=== PATIENT | male | born 1955 | race Caucasian/White ===

== ENCOUNTER 2025-05-11 13:12 | Inpatient (IN) | payer MEDICARE, SELFPAY ==
--- OUTSIDE RECORDS SUMMARY | 2016-05-15 19:00 | XMS_ITS | Continuity of Care Document ---
Author Organization [facility] Address [address], [place] [address] Phone Care Team Providers Care Cluster Bore Operator Name Role Phone Davey Mendoza MD Unavailable Unavailable Procedures Procedure Date No Charge Subsequent Hospital Care Subsequent Hospital Care Subsequent Hospital Care Subsequent Hospital Care Subsequent Hospital Care Subsequent Hospital Care Critical Care, First Hour Advance Directives Directive Yes / No Effective Date File Name No Information Encounters Encounter Description Practice Location Reason(s) For Visit Diagnoses Date Provider Providers Copied on Encounter [facility], [address] [place] [address], [id number], tel:[phone] [facility] No Information 6 Reji Mariscal. [address] [place] [address], [id number], [place]. tel:[phone] Subsequent Hospital Care [facility], [address] [place] [address], [address], tel:[phone] [facility] Acute kidney failure, unspecifiedAcidos isHyperkalemiaRha bdomyolysis 6 Grecia Hussein. [address] [place] [address], [facility] [address], [place], [id number], [place]. tel:[phone] Referring Provider: Miki Fowler, [facility] [place], [address]. tel:[phone] Subsequent Hospital Care [facility], [address] [place] [address], [address], [place] tel:[phone] [facility] Acute kidney failure, unspecifiedAcidos isHyperkalemiaRha bdomyolysis Apr-3 0- 6 Reji Mariscal. [address] [place] [address], [facility] [address], [place], [id number], [place]. tel:[phone] Referring Provider: Miki Fowler, [address] [place] [address], [address]. tel:[phone] Subsequent Hospital Care [facility], [address], [address], [place] tel:[phone] [facility] Acute kidney failure, unspecifiedAnemia in chronic kidney diseaseRhabdomyol ysisAcidosis Apr- 0- 6 Cristian Dodge. [facility] [address], [place], [address], [place]. tel:[phone] Referring Provider: Miki Fowler, [address] [place] [address], [address]. tel:[phone] Subsequent Hospital Care [facility], [address] [place] [address], [address], [place] tel:[phone] [facility] Acute kidney failure, unspecifiedAcidos isHyperkalemiaRha bdomyolysis Apr-3 0 6 Reji Mariscal. [address] [place] [address], [facility] [address], [id number], [place]. tel:[phone] Referring Provider: Miki Fowler, [address] [place] [address], [address]. tel:[phone] Subsequent Hospital Care [facility], [address] [place] [address], [address], [place] tel:[phone] [facility] Acute kidney failure, unspecifiedAcidos isHyperkalemiaRha bdomyolysis Apr-3 0 6 Reji Mariscal. [address] [place] [address], [facility] [address], [place], [id number], [place]. tel:[phone] Referring Provider: Miki Fowler, [address] [place] [address], [address]. tel:[phone] Subsequent Hospital Care [facility], [address] [place] [address], [address], [place] tel:[phone] [facility] Acute kidney failure, unspecifiedAcidos isHyperkalemiaRha bdomyolysis 0-201 6 Reji Mariscal. [address] [place] [address], [facility] [address], [place], [id number], [place]. tel:[phone] Referring Provider: Miki Fowler, [address] [place] [address], [address]. tel:[phone] Critical Care, First Hour [facility], [address], [address], [place] tel:[phone] [facility] Acute kidney failure, unspecifiedAcidos isHyperkalemiaRha bdomyolysis 0-201 6 Reji Mariscal. [address] [place] [address], [address], [id number], [place]. tel:[phone] Referring Provider: Miki Fowler, [address] [place] [address], [address]. tel:[phone] Family History Family Member Type Diagnosis Age At Onset No Information Payers Payer name Insurance type Covered republican ID Authoriza tion(s) No Information Social History Type Description Quantity Date Captured Comments Sex Male Smoking Status No Information Chief Complaint And Reason For Visit No Information History Of Present Illness Encounter Date Complaint History Of Prese nt Illness No Information Instructions Date Instruction Additional Infor mation No Information Assessments Type Assessment Date No Information
--- OUTSIDE RECORDS SUMMARY | 2018-10-08 19:00 | XMS_ITS | Continuity of Care Document ---
Author Organization [facility] Address [address] [place] [address] Care Team Providers Care Sewer Name Role Phone Ilir Maya MD Unavailable Unavailable Procedures Procedure Date Calcium Scoring, Pro Echo Trans Professional Advance Directives Directive Yes / No Effective Date File Name No Information Encounters Encounter Description Practice Location Reason(s) For Visit Diagnoses Date Provider Providers Copied on Encounter [facility], [address] [place] [address], [facility], [facility] No Information 9 Francesco Hazel. [address], [address], . tel:[phone] Referring Provider: [address], [place], [address]. tel:[phone] [facility], [address] [place] [address], [facility], [facility] No Information 8 John Fleming. [address] [facility], [address], [address], . tel:[phone] Referring Provider: [address], [place], [address]. tel:[phone] Family History Family Member Type Diagnosis Age At Onset No Information Payers Payer name Insurance type Covered republican ID Authoriza tion(s) No Information Social History Type Description Quantity Date Captured Comments Sex Male Smoking Status No Information Chief Complaint And Reason For Visit No Information Reason For Referral Reason For Referral No Information History Of Present Illness Encounter Date Complaint History Of Prese nt Illness No Information Functional Status Date Functional Assessmen t No Information Instructions Date Instruction Additional Infor mation No Information Assessments Type Assessment Date No Information Patient Care Teams Name Effective Dates (start - stop) Status Members No Information
[2025-05-11] VITALS (12 sets, daily range): BP systolic 97–127; BP diastolic 50–62; PULSE 71–107; RESP 16–20; TEMP 36.7–37.1; O2SAT 92–100; BMI 28.0
--- NOTE | ~2025-05-11 | XR_ITS ---
EXAMINATION: XR chest 2V, 05/11/2025 14:20 CDT HISTORY: CHF/DYSPNEA COMPARISON: No comparisons available. Technique: 2 views obtained. Findings: Scattered bilateral small infiltrates. COPD changes otherwise the remaining lungs are clear. No pneumothorax. Heart is normal size. Mediastinal and hilar contours are within normal limits. Bony thorax no acute abnormality. Impression: Bilateral pneumonia Reviewed, dictated and finalized at location P. Impression: Bilateral pneumonia
--- NOTE | ~2025-05-11 | XR_ITS ---
EXAMINATION: XR chest 2V, 05/14/2025 13:03 CDT HISTORY: pneumonia COMPARISON: No comparisons available. Technique: 2 views obtained. Findings: COPD changes Scattered bilateral small infiltrates No pneumothorax. Heart is normal size. Mediastinal and hilar contours are within normal limits. Bony thorax no acute abnormality. Impression: Bilateral pneumonia superimposed on chronic lung disease. The findings are new compared to the previous exam Reviewed, dictated and finalized at location P. Impression: Bilateral pneumonia superimposed on chronic lung disease. The findings are new compared to the previous exam
--- NOTE | 2025-05-11 13:13 | ECG_ITS ---
Test Date: 2025-05-11 13:23:33 Measurements Intervals [place] Rate: 99 P: 51 NH: 232 QRS: -22 QRSD: 97 T: 47 QT: 337 QTc: 432 Interpretive Statements SINUS RHYTHM WITH FIRST DEGREE AV BLOCK INCOMPLETE RIGHT BUNDLE BRANCH BLOCK DELAYED PRECORDIAL R/S TRANSITION LOW QRS VOLTAGE IN PRECORDIAL LEADS INFERIOR INFARCT, AGE INDETERMINATE BASELINE ARTIFACT- I, III, AVR, AVL ABNORMAL ECG No previous ECG available for comparison Electronically Signed On 05-11-2025 14:01:17 CDT by Simeon Palma D.O.
[2025-05-11 13:37] LABS: Hematocrit 30.8 % (42.0-52.0); Hemoglobin 9.8 g/dL (14.0-18.0); Immature Granulocyte Percent A 0.5 % (0-0.5); Lymphocytes Absolute Auto 0.71 K/mm3 (0.9-3.2); Mean Corpuscular HGB Conc 31.8 g/dl (32-36); Mean Corpuscular Hemoglobin 35.4 pg (26-34); Mean Corpuscular Volume 111.2 fl (80-100); Nucleated Red Blood Cells Absolute Auto 0.000 K/mm3 (0.0-0.012); Nucleated Red Blood Cells Perc 0.0 % (0.0-0.2); Platelet Count Result 162 k/mm3 (150-375); Red Blood Count 2.77 M/mm3 (4.6-6.20); White Blood Count 8.1 K/mm3 (4.5-10.0)
[2025-05-11 13:48] LABS: INR 1.2; Prothrombin Time 15.2 Seconds (11.1-14.7)
[2025-05-11 13:49] LABS: Partial Thromboplastin Time 35.7 Seconds (22.3-36.8)
[2025-05-11 13:50] LABS: Alanine Aminotransferase 22 U/L (6-50); Albumin Level 4.4 g/dL (3.5-5.1); Alkaline Phosphatase 160 U/L (38-126); Anion Gap 13 mmol/L (4-12); Aspartate Amino Transferase 35 U/L (17-59); Bilirubin,Total 1.2 mg/dL (0.2-1.3); Blood Urea Nitrogen 48 mg/dL (9-20); Calcium 9.4 mg/dL (8.4-10.2); Carbon Dioxide 23 mmol/L (22-30); Chloride 102 mmol/L (98-107); Estimated CRCL calculation 44 ml/min; Estimated Glomerular Filt Rate 45; Glucose 155 mg/dL (65-110); Potassium 3.8 mmol/L (3.4-5.0); Sodium 138 mmol/L (137-145); Total Protein 8.7 g/dL (6.3-8.2)
--- OUTSIDE RECORDS SUMMARY | 2025-05-11 13:59 | XMS_ITS | Encounter Summary ---
Author Organization [facility] Address [address] [place] [address] Phone Care Team Providers Care Adult Educator Name Role Phone Unavailable Primary Care Provider Unavailabl e Encounter Details Date Type Department Care Team (Late st Contact Info) Description 10/25/[address] [facility] [address] [place] [address] ProviderShelly MD [address] [place] [address] Social History Tobacco Use Types Packs/Day Years Used Date Smoking Tobacco: Never Assessed Sex and Gender Information Value Date Recorded Sex Assigned at Not on file Legal Sex Male 7:35 PM MDT Gender Identity Not on file Sexual Orientation Not on file documented as of this encounter Plan of Treatment Not on file documented as of this encounter Visit Diagnoses Not on filedocumented in this encounter
--- OUTSIDE RECORDS SUMMARY | 2025-05-11 13:59 | XMS_ITS | Clinical Summary ---
Author Organization [facility] Address [address] [place] [address] Phone Care Team Providers Care Operator Automated Process Name Role Phone Unavailable Primary Care Provider Unavailabl e Social History Tobacco Use Types Packs/Day Years Used Date Smoking Tobacco: Never Assessed Sex and Gender Information Value Date Recorded Sex Assigned at Not on file Legal Sex Male 7:35 PM MDT Gender Identity Not on file Sexual Orientation Not on file Plan of Treatment Not on file
--- OUTSIDE RECORDS SUMMARY | 2025-05-11 13:59 | XMS_ITS | Encounter Summary ---
Author Organization [facility] Address [address] [place] [address] Phone Care Team Providers Care Service Delivery Management Consultant Name Role Phone Unavailable Primary Care Provider Unavailabl e Encounter Details Date Type Department Care Team (Late st Contact Info) Description 08/13/2021 Hospital/ED/SNF/HH Visit [facility] [address] [place] [address] Provider, MD Shelly [address] [place] [address] Social History Tobacco Use Types Packs/Day [...]
[2025-05-11 14:00] LABS: NT Pro B Type Natriuretic Pept 778 pg/mL (19.9-100); Troponin I 0.012 ng/mL (0.000-0.034)
--- OUTSIDE RECORDS SUMMARY | 2025-05-11 14:00 | XMS_ITS | Encounter Summary ---
Author Organization [facility] Address [address] [place] [address] Care Team Providers Care Casing Splitter Name Role Phone Mamie Bartholomew NP Primary Care Provider Bob Pollard MD Unavailable [phone] Reason for Visit * Reason Onset Date Comments Medication Request 05/09/2025 Encounter Details Date Type Department Care Team (Late st Contact Info) Description 05/09/2025 Telephone [facility] Primary Care at [address] [address] Mamie Bartholomew NP [address] [place] [address] Medication Request Social History Tobacco Use Types Packs/Day Years Used Date Smoking Tobacco: Former Cigarettes 2 38 0 09/15/1974 - 09/15/2012 Passive Smoke Exposure: Past Smokeless Tobacco: Never [facility] Utilities Answer Date Recorded In the past 12 months has [employer], gas, oil, or water company threatened to shut off services in your home? No 07/21/2023 Social Connection and Isolation Panel Answer Date Recorded In a typical week, how many times do you talk on the phone with family, friends, or neighbors? More than three times a week 07/21/2023 How often do you get togethe r with friends or relatives? Twice a week 07/21/2023 How often do you attend [facility] or yarsani services? Never 07/21/2023 Do you belong to any clubs o r organizations such as latter day groups, unions, fraternal or athletic groups, or school groups? No 07/21/2023 How often do you attend meet ings of the clubs or organizations you belong to? Never 07/21/2023 Are you , , di vorced, , never , or living with a partner? 07/21/2023 AUDIT-C Answer Date Recorded Q1: How often do you have a drink containing alcohol? 4 or more times a week 07/20/2023 Q2: How many drinks containi ng alcohol do you have on a typical day when you are drinking? 5 or 6 Q3: How often do you have si x or more drinks on one occasion? Weekly 07/20/2023 Overall Financial Resource Strain (CARDIA) Answe r Date Recorded How hard is it for you to pa y for the very basics like food, housing, medical care, and heating? Not hard at all 07/21/2023 PHQ-2 Answer Date Recorded PHQ-2 Total Score (If total score is 3 or more points, staff should administer the PHQ-9) 0 05/02/2025 Hunger Vital Sign Answer Date Recorded Within the past 12 months, y ou worried that your food would run out before you got the money to buy more. Never true 07/21/19 24 Within the past 12 months, t he food you bought just didn't last and you didn't have money to get more. Never true 07/21/2023 PRAPARE - Transportation Answer Date Re corded In the past 12 months, has l ack of transportation kept you from medical appointments or from getting medications? No 11/2023 In the past 12 months, has l ack of transportation kept you from meetings, work, or from getting things needed for daily living? No 07/21/2023 Housing Stability Vital Sign Answer David e Recorded In the last 12 months, was t here a time when you were not able to pay the mortgage or rent on time? No 07/21/2023 In the last 12 months, how many places have you lived? 1 07/21/2023 In the last 12 months, was t here a time when you did not have a steady place to sleep or slept in a alf (including now)? No 07/21/2023 Personal Safety Answer Date Recorded Have you ever been in or are you currently in a harmful physical or emotional relationship or is someone making you feel afraid or unsafe? 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 * Telephone Encounter - Brigette Baldwin - 05/09/2025 10:46 AM CDT Medication Question/Clarification Medication Name(s)/Dose: furosemide (LASIX) 40 mg tablet What is the question or clarification needed? The patient is stating his cardiology increased the dosage to taking 4 pills a day, take 80 mg twice a day If needed, Pharmacy(s) medication(s) should be sent to: [id number] Additional Comments: Also asking for a 90 day supply, 360 tablets Does message need to be routed? Yes-Action Needed documented in this encounter Plan of Treatment Not on file documented as of this encounter Visit Diagnoses Not on filedocumented in this encounter Care Teams Casing Splitter Relationship Specialty Start Date End Date Mamie Bartholomew NP PCP - General Family Medicine 09/19/22 Bob Pollard MD Consulting Physician Cardiovascular Disease 07/22/23 documented as of this encounter
--- OUTSIDE RECORDS SUMMARY | 2025-05-11 14:00 | XMS_ITS | Encounter Summary ---
Author Organization [facility] Address [address] [place] [address] Care Team Providers Care Automotive Brake Technician Name Role Phone Mamie Bartholomew NP Primary Care Provider Bob Pollard MD Unavailable [phone] Reason for Visit * Reason Onset Date Comments Medical Question/Miscellaneous 05/05/2025 Encounter Details Date Type Department Care Team (Late st Contact Info) Description 05/05/2025 Telephone [facility] Primary Care at [address] [address] Mamie Bartholomew NP [address] [place] [address] [address] [place] [address] Medical Question/Miscellaneous Social History Tobacco Use Types Packs/Day Years Used Date Smoking Tobacco: Former Cigarettes 2 38 0 09/15/1974 - 09/15/2012 Passive Smoke Exposure: Past Smokeless Tobacco: Never [facility] Utilities Answer Date Recorded In the past 12 months has [employer], gas, oil, or water company threatened to [...] week 07/21/2023 How often do you attend [facility] or evangelical services? Never 07/21/2023 Do you belong to any clubs o r organizations such as roman catholic groups, unions, fraternal or athletic groups, or [...] place to sleep or slept in a jail (including now)? No 07/21/2023 Personal Safety Answer Date Recorded Have you ever been in or are you currently in a harmful physical or emotional relationship or is someone making you feel afraid or unsafe? 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 Patient declined an ER follow up appointment since he has Medicare exam on Monday. Wouldn't talk to FAMILY MEDICINE RESIDENT, just wanted a call from Mamie as soon as possible. Does message need to be routed? Yes-Action Needed documented in this encounter Plan of Treatment Not on file documented as of this encounter Visit Diagnoses Not on filedocumented in this encounter Care Teams Automotive Brake Technician Relationship Specialty Start Date End Date Mamie Bartholomew NP PCP - General Family Medicine 09/19/22 Bob Pollard MD Consulting Physician Cardiovascular Disease 07/22/23 documented as of this encounter
--- OUTSIDE RECORDS SUMMARY | 2025-05-11 14:00 | XMS_ITS | Clinical Summary ---
Author Organization [address] Address [address] [place] [id number] Care Team Providers Care Wood Mechanist Name Role Phone Juliana Hannah NP Primary Care Provider [phone] Bob Pollard MD Unavailable [phone] Allergies Active Allergy Reactions Criticality Noted Date Comments Phenobarbital Other (See comments) Medium 07/16/2012 Mother said had reaction as small child. Hyperactivity per mother. Medications iron-vit C-vit N37-yufcg acid (Iron 100 Plus) [phone] [id number]-yz-[id number]-mg tablet Take one tablet daily 90 tablet 1 023 Active Additional Information Patient not taking.Reported on 05/07/2025 saw palmetto 160 mg capsule Take 160 mg by mouth 2 (two) times a day 180 capsule 1 023 Active Additional Information Patient not taking.Informant: Self, Reported on 02/05/2024 melatonin 10 mg tablet Take 1 tablet (10 mg total) by mouth nightly Takes one tablet at hour of sleep, another when he wakes up in the middle of the night. Active ferrous sulfate 325 mg (65 mg of elemental iron) tabletIndications :Iron Deficiency Anemia Take 1 tablet (325 mg total) by mouth daily with breakfast 90 tablet 1 024 Active levETIRAcetam (KEPPRA) 500 mg tabletIndications :Seizure disorder (HCC) Take 2 tablets (1,000 mg total) by mouth daily 180 tablet 1 Active Additional Information Patient not taking.Reported on 02/05/2024 sodium chloride 1 gram tablet Take 3 tablets (3 g total) by mouth daily 90 tablet 11 Active clopidogreL (PLAVIX) 75 mg tabletIndications :History of CVA (cerebrovascular accident) Take 1 tablet (75 mg total) by mouth daily 90 tablet 1 Active atorvastatin (LIPITOR) 80 mg tabletIndications :Hyperlipidemia, unspecified hyperlipidemia type Take 1 tablet (80 mg total) by mouth daily 90 tablet 3 Active gemfibroziL (LOPID) 600 mg tabletIndications :Hyperlipidemia, unspecified hyperlipidemia type Take 1 tablet (600 mg total) by mouth daily 90 tablet 1 025 Active losartan (COZAAR) 100 mg tabletIndications :Benign hypertension Take 1 tablet (100 mg total) by mouth daily 90 tablet 1 025 Active aspirin 81 mg enteric coated tablet Take 1 tablet (81 mg total) by mouth daily 90 tablet 1 025 Active tamsulosin (FLOMAX) 0.4 mg extended release capsuleIndication s:Benign prostatic hyperplasia with weak urinary stream Take 1 capsule (0.4 mg total) by mouth daily 90 capsule 1 025 Active metoprolol tartrate (LOPRESSOR) 25 mg immediate release tablet Take 1 tablet (25 mg total) by mouth 2 (two) times a day 180 tablet 3 025 2025 Active empagliflozin (JARDIANCE) 10 mg tablet Take 1 tablet (10 mg total) by mouth daily 90 tablet 1 025 Active furosemide (LASIX) 40 mg tabletIndications :Shortness of breath Take 2 tablets (80 mg total) by mouth 2 (two) times a day 360 tablet 1 025 Active aspirin 81 mg enteric coated tablet Take 1 tablet (81 mg total) by mouth daily 90 tablet 1 024 2024 Discontinued(R eorder) atorvastatin (LIPITOR) 80 mg tabletIndications :Hyperlipidemia, unspecified hyperlipidemia type Take 1 tablet (80 mg total) by mouth daily 90 tablet 3 025 2024 Discontinued(R eorder) metoprolol tartrate (LOPRESSOR) 25 mg immediate release tablet Take 1 tablet (25 mg total) by mouth 2 (two) times a day 180 tablet 3 2024 Discontinued(R eorder) clopidogreL (PLAVIX) 75 mg tabletIndications :History of CVA (cerebrovascular accident) Take 1 tablet (75 mg total) by mouth daily 90 tablet 1 025 2024 Discontinued(R eorder) furosemide (LASIX) 40 mg tablet Take 1 tablet (40 mg total) by mouth 2 (two) times a day 180 tablet 1 2024 Discontinued(A lternate therapy) gemfibroziL (LOPID) 600 mg tabletIndications :Hyperlipidemia, unspecified hyperlipidemia type Take 1 tablet (600 mg total) by mouth daily 90 tablet 1 2024 Discontinued(R eorder) losartan (COZAAR) 100 mg tabletIndications :Benign hypertension Take 1 tablet (100 mg total) by mouth daily 90 tablet 1 2024 Discontinued(R eorder) tamsulosin (FLOMAX) 0.4 mg extended release capsuleIndication s:Benign prostatic hyperplasia with weak urinary stream Take 1 capsule (0.4 mg total) by mouth daily 90 capsule 1 2024 Discontinued(R eorder) furosemide (LASIX) 40 mg tabletIndications :Shortness of breath Take 2 tablets (80 mg total) by mouth 2 (two) times a day 120 tablet 11 2024 Discontinued(R eorder) empagliflozin (JARDIANCE) 10 mg tablet Take 1 tablet (10 mg total) by mouth daily 90 tablet 1 2024 Discontinued dapagliflozin propanediol (FARXIGA) 10 mg tablet Take 1 tablet (10 mg total) by mouth daily 90 tablet 1 2024 Discontinued furosemide (LASIX) 40 mg tabletIndications :Shortness of breath Take 2 tablets (80 mg total) by mouth 2 (two) times a day 120 tablet 11 025 2024 Discontinued(R eorder) Active Problems Problem Noted Date Diagnosed Date Medicare annual wellness visit, subsequent 02/04 Assessment & Plan (02/05/2024 12:29 PM CDT): A yearly Medicare Annual Wellness Visit has been performed today. Rudolph Boyd is up to date on screening tests. He is in need of None- no screening indicated at this time- these have been ordered. He is not up to date on needed preventative vaccinations; He is in need of Zoster. These have been ordered/arranged unless otherwise indicated. Pulmonary fibrosis 07/21/2023 Heart failure, unspecified H F chronicity, unspecified heart failure type 07/20/2023 Assessment & Plan (05/08/2025 1:16 PM CDT): Patient scheduled for ECHO 05/09 at [facility]. Our location in [place] is more convenient for him. Will touch base with his Software Engineer Kernel to switch order location. Continuing Furosemide as directed by specialist. Updated labs today Also discussed Farxiga for CHF, CKD, and T2DM. Pt agreeable as long as insurance allows, rx sent. Addendum 05/08/25: Pt continues to experience significant SOB and difficulty sleeping d/t this. Will have in home oxygen assessment performed to see if supplemental oxygen indicated for pt. O2 sat in office today is 92%. D/t pt mobility issues, unable to achieve 6 minute walk test in office visit yesterday. Assessment & Plan (02/05/2024 12:29 PM CDT): Stable overall, continuing current regimen and he is set to see Cardiology 02/22/24. Assessment & Plan (07/28/2023 10:34 AM JAVA SOFTWARE ARCHITECT): Continuing the Lasix 40 mg BID. Education provided on s/s to be mindful of and fluid restriction/intake. Discussed leg elevation 3x/daily above heart for at least 15-20 min each. Rechecking electrolytes when we recheck blood count in 4 weeks. CVA (cerebral vascular accident) 09/19/2022 Assessment & Plan (09/21/2022 11:53 AM JAVA SOFTWARE ARCHITECT): Per patient, he had some form of neurologic episode x 10-15 years ago, and they are unsure whether it was a seizure or a stroke. He was started on Keppra and continues it just to be safe. His previous PCP felt it was likely more of a stroke, given his hx prior to the weight loss. Continues statin and Plavix DM type 2 (diabetes mellitus, type 2) 09/19/2022 Assessment & Plan (05/07/2025 1:15 PM CDT): Updated labs ordered. Trial Farxiga for co-morbidities. Assessment & Plan (08/07/2024 1:35 PM JAVA SOFTWARE ARCHITECT): Stable overall, updated labs ordered. Assessment & Plan (02/05/2024 12:30 PM CDT): Updated labs ordered. Assessment & Plan (07/28/2023 10:35 AM JAVA SOFTWARE ARCHITECT): A1c 5.0% in hospital, no medications at this time. Hyperlipidemia 09/19/2022 Assessment & Plan (08/07/2024 1:35 PM JAVA SOFTWARE ARCHITECT): Continues Gemfibrozil and Lipitor Denies side effects Refills provided, labs ordered Assessment & Plan (09/21/2022 11:51 AM JAVA SOFTWARE ARCHITECT): Continues Gemfibrozil and Lipitor Denies side effects Refills provided, labs ordered Benign hypertension 09/19/2022 Assessment & Plan (08/07/2024 1:35 PM JAVA SOFTWARE ARCHITECT): BP stable in office Continues Losartan, refill provided. Labs ordered Assessment & Plan (09/21/2022 11:54 AM JAVA SOFTWARE ARCHITECT): BP stable in office Continues Losartan, refill provided. Labs ordered Hyponatremia 09/19/2022 Assessment & Plan (09/21/2022 11:50 AM JAVA SOFTWARE ARCHITECT): Continues Sodium Chloride tablets. Refills provided. Labs ordered. BPH (benign prostatic hyperplasia) 09/19/2022 Assessment & Plan (08/07/2024 1:35 PM JAVA SOFTWARE ARCHITECT): Sx stable Continues Tamsulosin, refill provided. Assessment & Plan (09/21/2022 11:53 AM JAVA SOFTWARE ARCHITECT): Sx stable Continues Tamsulosin, refill provided Has a Urologist. Iron deficiency anemia 09/19/2022 Assessment & Plan (07/28/2023 10:35 AM JAVA SOFTWARE ARCHITECT): Sending in iron supplement, rechecking blood count in 4 weeks. Recurrent unilateral inguinal hernia 09/19/2022 Encounters Date Type Department Care Team Description 05/09/2025 3:00 PM CDT Ancillary Procedure [facility] Medical [facility] Cardiology at [address] [phone] Rapid heart beat; Heart failure, unspecified HF chronicity, unspecified heart failure type (HCC) 05/09/2025 Orders Only [facility] Medical [facility] Primary Care at [address] [phone] Juliana Hannah, SUPERVISORY EXAMINER Shortness of breath 05/09/2025 Telephone [facility] Primary Care at [address] [phone] Juliana Hannah, SUPERVISORY EXAMINER Medication Request 05/08/2025 Results Follow-Up [facility] Primary Care at [address] [phone] Juliana Hannah, SUPERVISORY EXAMINER Ferritin, Iron level, Lipid panel, Additional followed-up results: 4 05/08/2025 Telephone [facility] Primary Care at [address] [phone] Juliana Hannah, SUPERVISORY EXAMINER 05/08/2025 Telephone [facility] Cardiology at [address] [phone] Unknown, Notinfile 05/07/2025 1:40 PM CDT Lab [address] [id number] Other iron deficiency anemia; Type 2 diabetes mellitus with other specified complication, without long-term current use of insulin; B12 deficiency 05/07/2025 1:25 PM CDT Lab [address] [address] Shortness of breath 05/07/2025 12:30 PM CDT Office Visit [facility] Medical [facility] Primary Care at [address] [phone] Juliana Hannah NP Type 2 diabetes mellitus with other specified complication, without long-term current use of insulin (Primary Dx); Other iron deficiency anemia; B12 deficiency; Heart failure, unspecified HF chronicity, unspecified heart failure type (HCC); Need for vaccination 05/07/2025 Orders Only [facility] at [address] [phone] Cosme Spivey NP 05/05/2025 [facility] [address] [address] Nanda Amos MA 05/05/2025 Orders Only [facility] at [address] [phone] Cosme Spivey NP Shortness of breath (Primary Dx) 05/05/2025 Orders Only [facility] [id number] [address] Cosme Spivey NP 05/05/2025 Telephone [facility] at [address] [phone] Cosme Spivey NP 05/05/2025 Telephone [facility] Primary Care at [address] [phone] Juliana Hannah NP Medical Question/Miscellane ous 05/03/2025 5:05 PM CDT - 05/03/2025 6:30 PM CDT Emergency [facility] Emergency Department [address] [place] [address] Nicholas Eason MD Mild congestive heart failure (HCC) (Primary Dx) Discharge Disposition: Discharge to home or self care from Last 3 Months Immunizations Immunization Administration Dates Next Due Influenza, Quadrivalent, Hig h Dose, Preservative Free, Intrr 04/13/2023,03/29/2022 Influenza, Quadrivalent, Spl it, Preservative Free, Intramuscular 04/22/2017 Influenza, Trivalent, High D ose, Split, Preservative Free, Intramuscular 05/07/2025,04/02/2024 Influenza, Trivalent, IM (MDV) 04/24/2014,2011 Influenza, Unspecified 03/18/2024,2023(Deferred: Patient Refused),07/17/2023,07/17/2022, 023(Deferred: Patient Refused),04/16/2021,05/16/2016 Moderna Sars-cov-2 Bivalent Vaccine 50 Mcg/0.5 mL (12+ YRS)-Blue/Guzman 05/22/2023 Pfizer SARS-CoV-2 Monovalent Vaccination (12+ Yrs) PURPLE 04/16/2021 Pneumococcal Polysaccharide PPV23 12/21/2018,11/2015 RSV, Bivalent, Protein Subun it Rsvpref, Diluent (Abrysvo) 04/13/2023 Tdap 07/17/2019,05/24/2014 ZOSTER LIVE 05/24/2014 ZOSTER Recombinant 08/23/2020 Surgical History Surgery Date Site/Laterality Comments CAROTID STENT REPLACEMENT TOTAL KNEE Left CATARACT EXTRACTION KNEE ARTHROSCOPY W/ LATERAL RELEASE Medical History Medical History Date Comments CVA (cerebral vascular accident) (HCC) Diabetes mellitus Hypertension Hyperlipidemia Hyponatremia Diabetes mellitus 09/19/2022 Family History Medical History Relation Name Comments Heart attack Brother 1 No Known Problems Brother 2 No Known Problems Brother 3 COPD Father Emphysema Father Lung cancer Maternal Grandmother Lung cancer Mother No Known Problems Sister 1 No Known Problems Sister 2 Relation Name Status Comments Brother 1 Brother 2 Alive Brother 3 Alive Father Maternal Grandmother Mother Sister 1 Alive Sister 2 Alive Social History Tobacco Use Types Packs/Day Years Used Date Smoking Tobacco: Former Cigarettes 2 38 0 09/15/1974 - 09/15/2012 Passive Smoke Exposure: Past Smokeless Tobacco: Never Tobacco Cessation:Counseling Given: Not Answered [facility] Utilities Answer Date Recorded In the past 12 months has th e electric, gas, oil, or water company threatened [...] week 07/21/2023 How often do you attend chur ch or yarsanism services? Never 07/21/2023 Do you belong to any clubs o r organizations such as orthodox groups, unions, fraternal or athletic groups, or [...] place to sleep or slept in a senior care (including now)? No 07/21/2023 Personal Safety Answer Date Recorded Have you ever been in or are you currently in a harmful physical or emotional relationship or is someone making you feel afraid or unsafe? Denies 05/03/2025 Sex and Gender Information Value Date Recorded Sex Assigned at Not on file Legal Sex Male 3:23 AM JAVA SOFTWARE ARCHITECT Gender Identity Not on file Sexual Orientation Not on file Obstetrics History Last Filed Vital Signs Vital Sign Reading Time Taken Comments Blood Pressure 104/54 05/07/2025 12:47 PM CDT Pulse 71 05/07/2025 12:47 PM CDT Temperature 36.4 C (97.5 F) 05/07/2025 12:47 PM CDT Respiratory Rate 22 05/03/2025 6:15 PM CDT Oxygen Saturation 92% 05/07/2025 12:47 PM CDT Inhaled Oxygen Concentration - - Weight 95.3 kg (210 lb) 11/21/2024 12:59 PM CDT Height 182.9 cm (6') 05/07/2025 12:47 PM CDT Body Mass Index 28.48 11/21/2024 12:59 PM CDT Plan of Treatment Health Maintenance Due Date Last Done Comments Hepatitis B Screening 02/11/1972 Zoster Vaccine (3 of 3) 10/18/2020 08/23/2020, 05/24 Well Visit 65+ 02/04/2025 02/05/2024, 03/17, 03/28/2022 Lung Cancer Screening 05/03/2026 05/03/2025 , 01/10/2024, 10/15/2022 Depression Screening 05/07/2026 05/07/2025, 08/07/2024, 02/05/2024, Additional history exists Fall Risk Assessment 05/07/2026 05/07/2025, 08/07/2024, 02/05/2024, Additional history exists Lipid Panel 05/07/2026 05/07/2025, 07/18, 02/05/2024, Additional history exists eGFR 05/07/2026 05/07/2025, 04/16, 08/07/2024, Additional history exists Colon Cancer Screening-DNA Stool 09/24/2027 09/24/19 25, 07/07/2021 DTaP/Tdap/Td Vaccine (3 - Td or Tdap) 07/17/2029 07/17/2019, 05/24/2014 Dilated Eye Exam Discontinued 03/15/2021 Hepatitis C Screening Completed 10/24/2022 Pneumococcal vaccine 65+ Completed 023, 12/21/2018, 05/21/2016 Abdominal Aortic Aneurysm (A AA) Screen Completed 01/03/2024 Prostate Cancer Screening-PSA Discontinued 08/07/2024, 09/15/2021 Covid-19 Vaccine Completed 10/30/2024, , 05/22/2023, Additional history exists Hemoglobin A1C Discontinued 05/07/2025, 07/18, 02/05/2024, Additional history exists Influenza Vaccine Completed 05/07/2025, , 03/18/2024, Additional history exists Albumin Creatinine Ratio, Urine Discontinued Foot Exam Discontinued Procedures Procedure Name Priority Date/Time Associated Diagnosis Comments TRANSTHORACIC ECHO (TTE) COMPLETE W DOPPLER/CF W CONTRAST Routine 05/09/2025 4:02 PM CDT Rapid heart beat Heart failure, unspecified HF chronicity, unspecified heart failure type (HCC) DIFFERENTIAL AUTO Routine 05/07/2025 1:4 7 PM CDT Type 2 diabetes mellitus with other specified complication, without long-term current use of insulin CBC WITH AUTO DIFFERENTIAL Routine 05/07/2025 1:47 PM CDT Type 2 diabetes mellitus with other specified complication, without long-term current use of insulin VITAMIN B12 Routine 05/07/2025 1:47 PM CDT B12 deficiency HEMOGLOBIN A1C Routine 05/07/2025 1:47 PM CDT Type 2 diabetes mellitus with other specified complication, without long-term current use of insulin LIPID PANEL Routine 05/07/2025 1:47 PM CDT Type 2 diabetes mellitus with other specified complication, without long-term current use of insulin IRON Routine 05/07/2025 1:47 PM CDT Other iron deficiency anemia FERRITIN Routine 05/07/2025 1:47 PM CDT Other iron deficiency anemia EGFR Routine 05/07/2025 1:34 PM CDT Shortness of breath PRO B-TYPE NATRIURETIC PEPTIDE Routine 05/07/2025 1:34 PM CDT Shortness of breath BASIC METABOLIC PANEL Routine 05/07/2025 1:34 PM CDT Shortness of breath CT CHEST PE W CONTRAST ED 05/03/2025 4:33 PM CDT LEVETIRACETAM LEVEL Add-On 05/03/2025 3 :41 PM CDT TROPONIN T HIGH-SENSITIVITY 2-HOUR Timed 05/03/2025 3:41 PM CDT XR CHEST PA LATERAL 2 VIEWS ED 05/03/2025 2:54 PM CDT D-DIMER, QUANTITATIVE Add-On 05/03/2025 2:11 PM CDT EGFR STAT 05/03/2025 2:10 PM CDT PRO B-TYPE NATRIURETIC PEPTIDE Add-On 05/03/2025 2:10 PM CDT DIFFERENTIAL AUTO STAT 05/03/2025 2:1 0 PM CDT TROPONIN T HIGH-SENSITIVITY SERIES (BASELINE, 2HR, 4HR, 6HR) STAT 05/03/2025 2:10 PM CDT CBC WITH AUTO DIFFERENTIAL STAT 05/03/2025 2:10 PM CDT COMPREHENSIVE METABOLIC PANEL STAT 05/03/2025 2:10 PM CDT ECG 12-LEAD STAT 05/03/2025 2:07 PM CDT STOOL DNA COLOGUARD Routine 09/23/2024 9:30 AM CDT Colon cancer screening PSA SCREEN Routine 08/07/2024 1:40 PM JAVA SOFTWARE ARCHITECT Screening PSA (prostate specific antigen) CT LUNG CANCER SCREENING Schedule Routine, Read Routine (OP Routine) 01/10/2024 11:38 AM CDT Nicotine dependence, cigarettes, in remission US ABDOMINAL AORTIC ANEURYSM SCREENING Schedule Routine, Read Routine (OP Routine) 01/03/2024 11:45 AM CDT Encounter for abdominal aortic aneurysm (AAA) screening HEPATITIS C ANTIBODY Routine 10/24/2022 1:13 PM CDT Encounter for hepatitis C screening test for low risk patient DIABETIC EYE EXAM Routine 03/15/2021 from Last 3 Months or Most Recently Relevant to Health Maintenance Results * TRANSTHORACIC ECHO (TTE) COMPLETE W DOPPLER/CF W CONTRAST (05/09/2025 4:02 PM CDT) Estimated EF 65-70 % CONS SCIMAGE EF Mod BP 68 % CONS SCIMAGE Anatomical Region Laterality Modality Ultrasound 05/09/2025 3:07 PM CDT Narrative 05/09/2025 4:31 PM CDT [facility] Cardiology [address], [address], [place] [address] P:[phone] P:[phone] Echocardiographic Report Patient Name: RUDOLPH BOYD K : 1955 Study Date: 05/09/2025 3:07:18 PM Sex: M Spring Coiler: BERNA Location: [facility] Ref Provider: JULIANA HANNAH Height(Cm): 183 BSA: 2.2 Weight(Kg): 95.3 Heart Rate: 95 BP: 105 / 54 Quality: Definity contrast agent used to enhance endocardial border definition Order Provider: JULIANA HANNAH PROCEDURES: Echocardiographic Report: Transthoracic echocardiogram with complete 2D, M-Mode, color Doppler examination and Definity contrast. INDICATIONS: Rapid Heart Beat and I50.9 Heart failure, unspecified. MEASUREMENTS: 2D/MM Value Range Doppler Value Range EF Mod BP 68 % [ 52 - 72 ] AASHISH Vmax 1.66 cm2 [ 2.00 - 4.00 ] EF Teich MM 52 % [ 52 - 72 ] AV Mean PG 4 mmHg Estimated EF 65-70 % AV Peak Min 1.50 m/s [ 1.00 - 1.70 ] LVIDd 2D 4.78 cm [ 4.20 - 5.80 ] AV Peak PG 9 mmHg LVIDd MM 5.42 cm [ 4.20 - 5.80 ] AV VTI 23.83 cm LVIDs 2D 3.30 cm [ 2.50 - 4.00 ] LVOT Diam 1.99 cm [ 1.70 - 2.10 ] LVIDs MM 3.96 cm [ 2.50 - 4.00 ] LVOT Peak Min 0.80 m/s [ 0.70 - 1.10 ] LVPWd 2D 1.06 cm [ 0.60 - 1.00 ] LVOT VTI 14.26 cm LVPWd MM 1.04 cm [ 0.60 - 1.00 ] MV E Peak Min 0.47 m/s [ 0.60 - 1.30 ] IVSd 2D 0.99 cm [ 0.60 - 1.00 ] MV A Peak Min 0.72 m/s [ 1.00 - 1.20 ] IVSd MM 0.94 cm [ 0.60 - 1.00 ] MV Decel Time 127 msec [ 104 - 258 ] LA Dimension MM 4.51 cm [ 3.00 - 4.00 ] PV Peak Min 0.83 m/s [ 0.40 - 0.80 ] AoR Diam MM 4.28 cm [ 3.10 - 3.70 ] RV S` 0.13 m/s LA Volume 62.00 ml [ 18.00 - 58.00 ] Lateral E` 0.11 m/s [ 0.10 - 0.15 ] LA Volume Index 28 cc/m2 [ 16 - 28 ] Septal E` 0.07 m/s [ 0.08 - 0.15 ] ACS MM 2.34 cm [ 1.50 - 2.60 ] E` 0.09 m/s RA Volume 41.10 ml E/E` 5 Tapse 1.86 cm [ 1.71 - 5.00 ] 2D/MM Value Range Doppler Value Range - FINDINGS: Interpretation Site: Exam was interpreted at [facility]. Left Ventricle: Normal left ventricular systolic function. No focal wall motion abnormalities. Normal left ventricular size. Definity contrast agent used to visually enhance endocardial wall motion and contractility. Lot Number: [id number]. Mild concentric left ventricular hypertrophy. Impaired diastolic relaxation Grade I. Ejection fraction is measured at 68 %. Ejection Fraction is visually estimated to be 65-70 %. Right Ventricle: Normal right ventricular size. Normal right ventricular systolic function. Left Atrium: There is mild enlargement of left atrium. Right Atrium: The right atrium is normal in size. Atrial Septum: Normal atrial septum. Mitral Valve: Mild mitral annular calcification. Mild mitral valve regurgitation. There is no hemodynamically significant mitral stenosis by Doppler. Aortic Valve: Abnormal appearance of the aortic valve. Mild aortic stenosis. Valve area of 1.7 cm2. Aortic cusps appear moderately calcified. Possible bicuspid aortic valve. Trace to mild aortic valve regurgitation. Tricuspid Valve: Normal appearance of the tricuspid valve. Right ventricular systolic pressure could not be estimated due to inadequate visualization of the tricuspid regurgitation jet. Trivial regurgitation in the tricuspid valve. Pulmonic Valve: Normal appearance of the pulmonic valve. No pulmonic stenosis. Mild pulmonic regurgitation. Pericardium: Trivial pericardial effusion. Thickened pericardium. Aorta: Sinus of Valsalva is dilated. Sinus of Valsalva 4.3 cm. IVC: Normal size and normal respiratory collapse consistent with normal right atrial pressure (<5 mmHg). CONCLUSIONS: Normal left ventricular systolic function. No focal wall motion abnormalities. Normal left ventricular size. Definity contrast agent used to visually enhance endocardial wall motion and contractility. Lot Number: [id number]. Mild concentric left ventricular hypertrophy. Impaired diastolic relaxation Grade I. Ejection fraction is measured at 68 %. Ejection Fraction is visually estimated to be 65-70 %. There is mild enlargement of left atrium. Mild mitral annular calcification. Mild mitral valve regurgitation. Abnormal appearance of the aortic valve. Mild aortic stenosis. Valve area of 1.7 cm2. Aortic cusps appear moderately calcified. Possible bicuspid aortic valve. Trace to mild aortic valve regurgitation. Mild pulmonic regurgitation. Trivial pericardial effusion. Thickened pericardium. Sinus of Valsalva is dilated. Sinus of Valsalva 4.3 cm. Normal sinus rhythm. Electronically Signed By: Miki Montgomery MD 05/09/2025 4:30:32 PM CDT Procedure Note Miki Montgomery MD - 05/09/2025 [facility]iology [address], [address], [place] [address] P:[phone] P:[phone] Echocardiographic Report Patient Name: RUDOLPH BOYD K : 1955 Study Date: 05/09/2025 3:07:18 PM Sex: M Spring Coiler: BERNA Location: [facility] Ref Provider: JULIANA HANNAH Height(Cm): 183 BSA: 2.2 Weight(Kg): 95.3 Heart Rate: 95 BP: 105 / 54 Quality: Definity contrast agent used to enhance endocardial borderdefinition Order Provider: JULIANA HANNAH PROCEDURES: Echocardiographic Report: Transthoracic echocardiogram with complete 2D, M-Mode, color Dopplerexamination and Definity contrast. INDICATIONS: Rapid Heart Beat and I50.9 Heart failure, unspecified. MEASUREMENTS: 2D/MM Value Range Doppler ValueRange EF Mod BP 68 % [ 52 - 72 ] AASHISH Vmax 1.66cm2 [ 2.00 - 4.00 ] EF Teich MM 52 % [ 52 - 72 ] AV Mean PG 4mmHg Estimated EF 65-70 % AV Peak Min 1.50m/s [ 1.00 - 1.70 ] LVIDd 2D 4.78 cm [ 4.20 - 5.80 ] AV Peak PG 9mmHg LVIDd MM 5.42 cm [ 4.20 - 5.80 ] AV VTI 23.83cm LVIDs 2D 3.30 cm [ 2.50 - 4.00 ] LVOT Diam 1.99cm [ 1.70 - 2.10 ] LVIDs MM 3.96 cm [ 2.50 - 4.00 ] LVOT Peak Min 0.80m/s [ 0.70 - 1.10 ] LVPWd 2D 1.06 cm [ 0.60 - 1.00 ] LVOT VTI 14.26cm LVPWd MM 1.04 cm [ 0.60 - 1.00 ] MV E Peak Min 0.47m/s [ 0.60 - 1.30 ] IVSd 2D 0.99 cm [ 0.60 - 1.00 ] MV A Peak Min 0.72m/s [ 1.00 - 1.20 ] IVSd MM 0.94 cm [ 0.60 - 1.00 ] MV Decel Time 127msec [ 104 - 258 ] LA Dimension MM 4.51 cm [ 3.00 - 4.00 ] PV Peak Min 0.83m/s [ 0.40 - 0.80 ] AoR Diam MM 4.28 cm [ 3.10 - 3.70 ] RV S` 0.13m/s LA Volume 62.00 ml [ 18.00 - 58.00 ] Lateral E` 0.11m/s [ 0.10 - 0.15 ] LA Volume Index 28 cc/m2 [ 16 - 28 ] Septal E` 0.07m/s [ 0.08 - 0.15 ] ACS MM 2.34 cm [ 1.50 - 2.60 ] E` 0.09m/s RA Volume 41.10 ml E/E` 5 Tapse 1.86 cm [ 1.71 - 5.00 ] 2D/MM Value Range Doppler ValueRange - FINDINGS: Interpretation Site: Exam was interpreted at [facility]. Left Ventricle: Normal left ventricular systolic function. No focal wall motionabnormalities. Normal left ventricular size. Definity contrast agent used to visually enhanceendocardial wall motion and contractility. Lot Number: [id number]. Mild concentric leftventricular hypertrophy. Impaired diastolic relaxation Grade I. Ejection fraction ismeasured at 68 %. Ejection Fraction is visually estimated to be 65-70 %. Right Ventricle: Normal right ventricular size. Normal right ventricular systolicfunction. Left Atrium: There is mild enlargement of left atrium. Right Atrium: The right atrium is normal in size. Atrial Septum: Normal atrial septum. Mitral Valve: Mild mitral annular calcification. Mild mitral valve regurgitation. Thereis no hemodynamically significant mitral stenosis by Doppler. Aortic Valve: Abnormal appearance of the aortic valve. Mild aortic stenosis. Valve areaof 1.7 cm2. Aortic cusps appear moderately calcified. Possible bicuspid aortic valve.Trace to mild aortic valve regurgitation. Tricuspid Valve: Normal appearance of the tricuspid valve. Right ventricular systolicpressure could not be estimated due to inadequate visualization of the tricuspidregurgitation jet. Trivial regurgitation in the tricuspid valve. Pulmonic Valve: Normal appearance of the pulmonic valve. No pulmonic stenosis. Mildpulmonic regurgitation. Pericardium: Trivial pericardial effusion. Thickened pericardium. Aorta: Sinus of Valsalva is dilated. Sinus of Valsalva 4.3 cm. IVC: Normal size and normal respiratory collapse consistent with normal rightatrial pressure (<5 mmHg). CONCLUSIONS: Normal left ventricular systolic function. No focal wall motionabnormalities. Normal left ventricular size. Definity contrast agent used to visually enhanceendocardial wall motion and contractility. Lot Number: [id number]. Mild concentric leftventricular hypertrophy. Impaired diastolic relaxation Grade I. Ejection fraction ismeasured at 68 %. Ejection Fraction is visually estimated to be 65-70 %. There is mild enlargement of left atrium. Mild mitral annular calcification. Mild mitral valve regurgitation. Abnormal appearance of the aortic valve. Mild aortic stenosis. Valve areaof 1.7 cm2. Aortic cusps appear moderately calcified. Possible bicuspid aortic valve.Trace to mild aortic valve regurgitation. Mild pulmonic regurgitation. Trivial pericardial effusion. Thickened pericardium. Sinus of Valsalva is dilated. Sinus of Valsalva 4.3 cm. Normal sinus rhythm. Electronically Signed By: Miki Montgomery MD 05/09/2025 4:30:32 PM CDT Juliana Hannah NP CV ECHO PROCEDURES Final Result * (ABNORMAL) Differential, auto (05/07/2025 1:47 PM CDT) Neutrophil abs 6.55(H) 1.50 - 6.50 K/cumm Imm gran abs 0.05 0.00 - 0.10 K/cumm [facility] Lymphocyte abs 0.88 0.80 - 3.30 K/cumm [facility] Monocyte abs 1.28(H) 0.20 - 0.80 K/cumm [facility] Eosinophil abs 0.07 0.00 - 0.50 K/cumm [facility] Basophil abs 0.04 0.00 - 0.10 K/cumm [facility] Neutrophil pct 73.8 % [facility] Comment: Interpretive Data Percent cell count reference ranges are not reported, since discordance with absolute values may lead to misinterpretation of CBC data. Current Interpretive Data was last revised on 2017. Imm gran pct 0.6 % [facility] Comment: Interpretive Data Percent cell count reference ranges are not reported, since discordance with absolute values may lead to misinterpretation of CBC data. Current Interpretive Data was last revised on 2017. Lymphocyte pct 9.9 % [facility] Comment: Interpretive Data Percent cell count reference ranges are not reported, since discordance with absolute values may lead to misinterpretation of CBC data. Current Interpretive Data was last revised on 2017. Monocyte pct 14.4 % [facility] Comment: Interpretive Data Percent cell count reference ranges are not reported, since discordance with absolute values may lead to misinterpretation of CBC data. Current Interpretive Data was last revised on 2017. Eosinophil pct 0.8 % [facility] Comment: Interpretive Data Percent cell count reference ranges are not reported, since discordance with absolute values may lead to misinterpretation of CBC data. Current Interpretive Data was last revised on 2017. Basophil pct 0.5 % [facility] Comment: Interpretive Data Percent cell count reference ranges are not reported, since discordance with absolute values may lead to misinterpretation of CBC data. Current Interpretive Data was last revised on 2017. Blood 05/07/2025 1:47 PM CDT 05/07/2025 6:19 PM CDT Juliana Hannah SUPERVISORY EXAMINER LAB BLOOD ORDERABLES Final Resul t [place] [id number] [facility] [place] [address] * (ABNORMAL) CBC with auto differential (05/07/2025 1:47 PM CDT) WBC 8.87 3.80 - 9.90 K/cumm Hgb 10.2(L) 13.0 - 17.5 g/dL [facility] Hct 32.2(L) 38.9 - 50.3 % [facility] Plt 194 150 - 400 K/cumm [facility] MPV 10.8 9.1 - 12.3 fL [facility] RBC 2.84(L) 4.30 - 5.80 M/cumm [facility] MCV 113.4(H) 81.3 - 96.4 fL [facility] MCH 35.9(H) 27.1 - 33.3 pg [facility] MCHC 31.7(L) 32.3 - 35.7 g/dL [facility] RDW CV 15.1(H) 11.1 - 14.9 % [facility] RDW SD 62.8(H) 35.7 - 48.1 fL [facility] NRBC abs 0.00 0.00 - 0.01 K/cumm [facility] Blood 05/07/2025 1:47 PM CDT 05/07/2025 6:19 PM CDT us Juliana Hannah SUPERVISORY EXAMINER LAB BLOOD ORDERABLES Final Resul t Performing Organization Address City/[facility] de Phone Number [address] [place] [address] * (ABNORMAL) Iron level (05/07/2025 1:47 PM CDT) Pathologist [facility] Iron 38(L) 50 - 150 mcg/dL Blood 05/07/2025 1:47 PM CDT 05/07/2025 6:19 PM CDT us Juliana Hannah SUPERVISORY EXAMINER LAB BLOOD ORDERABLES Final Resul t Performing Organization Address [facility] de Phone Number [address] [address] * (ABNORMAL) Hemoglobin A1c (05/07/2025 1:47 PM CDT) [facility] Hgb A1C 6.2(H) 4.0 - 5.6 % Estimated Average Glucose 131 mg/dL [facility] Comment: The ADA recommends reporting an estimated Average Glucose (eAG) with all Hemoglobin A1c results using the equation derived from a study of 507 normal and diabetic adults. Minority populations were underrepresented and children were not included. (Diabetes Care 31:6036-0462, 2008). The eAG is not equivalent to a fasting glucose. Blood 05/07/2025 1:47 PM CDT 05/07/2025 6:19 PM CDT us Juliana Hannah NP LAB BLOOD ORDERABLES Final Resul t Performing Organization Address [facility] Co de Phone Number [address] [place] [address] * (ABNORMAL) Ferritin (05/07/2025 1:47 PM CDT) [facility] Ferritin 1,437(H) 30 - 400 ng/mL Blood 05/07/2025 1:47 PM CDT 05/07/2025 6:19 PM CDT us Juliana Hannah SUPERVISORY EXAMINER LAB BLOOD ORDERABLES Final Resul t Performing Organization Address City/[facility] Co de Phone Number [address] [place] [address] * Vitamin B12 (05/07/2025 1:47 PM CDT) Vitamin B12 703 230 - 1,250 pg/mL Blood 05/07/2025 1:47 PM CDT 05/07/2025 6:19 PM CDT Juliana Lamine [place] SUPERVISORY EXAMINER LAB BLOOD ORDERABLES Final Resul t Performing Organization Address [facility] de Phone Number [address] [place] [address] * Lipid panel (05/07/2025 1:47 PM CDT) Cholesterol 149 30 - 199 mg/dL Comment: Interpretive Data Ages < or = 19 years Acceptable: <170 mg/dL Borderline high: 170-199 mg/dL High: >or= 200 mg/dL Ages > or = 20 years Desirable: <200 mg/dL Borderline high: 200-239 mg/dL High: >or= 240 mg/dL Literature References: 1. Expert Panel on Integrated Guidelines for Cardiovascular Health and Risk Reduction in Children and Adolescents. Pediatrics 2011;128:S213 2. NCEP Expert Panel. Circulation 2004;110:227 Current Interpretive Data was last revised on 2018. Triglycerides 134 <=149 mg/dL [facility] Comment: Interpretive Data Ages < or = 9 years Acceptable: <75 mg/dL Borderline high: 75-99 mg/dL High: >or= 100 mg/dL Ages 10 to 20 years Acceptable: <90 mg/dL Borderline high: 90-129 mg/dL High: >or= 130 mg/dL Ages > or = 20 years Desirable: <150 mg/dL Borderline high: 150-199 mg/dL High: 200-499 mg/dL Very high: >or= 499 mg/dL Literature References: 1. Expert Panel on Integrated Guidelines for Cardiovascular Health and Risk Reduction in Children and Adolescents. Pediatrics 2011;128:S213 2. NCEP Expert Panel. Circulation 2004;110:227 Current Interpretive Data was last revised on 2018. HDL 59 >=40 mg/dL [facility] Comment: Interpretive Data Ages < or = 19 years Acceptable: >45 mg/dL Borderline low: 40-45 mg/dL Low: <40 mg/dL Ages > or = 20 years Desirable: >or= 60 mg/dL Low: <40 mg/dL Literature References: 1. Expert Panel on Integrated Guidelines for Cardiovascular Health and Risk Reduction in Children and Adolescents. Pediatrics 2011;128:S213 2. NCEP Expert Panel. Circulation 2004;110:227 Current Interpretive Data was last revised on 2018. LDL, calculated 67 <=129 mg/dL [facility] OBANDO Comment: Interpretive Data Ages < or = 19 years Acceptable: <110 mg/dL Borderline high: 110-129 mg/dL High: >or= 130 mg/dL Ages > or = 20 years Optimal: <100 mg/dL Near optimal: 100-129 mg/dL Borderline high: 130-159 mg/dL High: >160 mg/dL Calculated using the José LDL-C estimating equation. This equation was implemented on 2024. Prior to this date LDL-C was estimated using the Friedewald equation. Literature References: 1. Expert Panel on Integrated Guidelines for Cardiovascular Health and Risk Reduction in Children and Adolescents. Pediatrics 2011;128:S213 2. NCEP Expert Panel. Circulation 2004;110:227 3. José Watkins et al. RONALDO Cardiol. 2019November 14;5(5):540-548. doi: 10.1001/[email or web address].2020.0013 Current Interpretive Data was last revised on 2024. Non-HDL Cholesterol 90 mg/dL [facility] Comment: Interpretive Data Ages < or = 19 years Acceptable: <120 mg/dL Borderline high: 120-144 mg/dL High: >145 mg/dL Ages > or = 20 years When triglycerides are >200 mg/dL, Non-HDL cholesterol is a secondary target of therapy with treatment goals that are 30 mg/dL greater than the LDL cholesterol target. Literature References: 1. Expert Panel on Integrated Guidelines for Cardiovascular Health and Risk Reduction in Children and Adolescents. Pediatrics 2011;128:S213 2. NCEP Expert Panel. Circulation 2004;110:227 Current Interpretive Data was last revised on 2018. Chol/HDL ratio 3 [facility] Blood 05/07/2025 1:47 PM CDT 05/07/2025 6:19 PM CDT Juliana Hannah SUPERVISORY EXAMINER LAB BLOOD ORDERABLES Final Resul t Performing Organization Address [facility] de Phone Number [address] [address] * (ABNORMAL) eGFR (05/07/2025 1:34 PM CDT) eGFR 55(L) >=60 mL/min/1. 73 m2 Comment: Interpretive Data Reference Interval Normal >/= 90 mL/min/1.73m2 Mildly decreased* 60 - 89 mL/min/1.73m2 Mildly to moderately decreased 45 - 59 mL/min/1.73m2 Moderately to severely decreased 30 - 44 mL/min/1.73m2 Severely decreased 15 - 29 mL/min/1.73m2 Kidney Failure < 15 mL/min/1.73m2 *Relative to young adult level Estimated glomerular filtration rate is determined by the 2020 CKD-EPI equation recommended by the National Kidney Foundation (A Unifying Approach to GFR Estimation: Recommendations of the NKF-ASK Task Force on Reassessing the Inclusion of Race in Diagnosing Kidney Disease, JASN 2020). The CKD-EPI equation should not be used for patients with unstable renal function and has not been validated in children and those over 70. Current interpretive data was last reviewed 2021. Blood 05/07/2025 1:34 PM CDT 05/07/2025 6:19 PM CDT us Cosme Spivey SUPERVISORY EXAMINER LAB BLOOD ORDERABLES Final R esult Performing Organization Address [facility] Co de Phone Number [address] [place] [address] * (ABNORMAL) Pro B-type natriuretic peptide (05/07/2025 1:34 PM CDT) NT-proBNP 827(H) <=300 pg/mL Comment: Interpretive Comments: A. Dyspnea in Acute Care Setting All Ages: < 300 pg/ml, acute heart failure unlikely. < 50 yrs: 300 - 450 pg/ml, further investigation warranted. > 450 pg/ml, acute heart failure likely. 50 - 74 yrs: 300 - 900 pg/ml, further investigation warranted. > 900 pg/ml, acute heart failure likely . > or = 75 yrs: 450 - 1800 pg/ml, further investigation warranted. > 1800 pg/ml, acute heart failure likely. B. Non-acute Setting < 75 yrs < 125 pg/ml, rules out heart failure. > or = 125 pg/ml, further investigation warranted. > or = 75 yrs < 450 pg/ml, rules out heart failure. > or = 450 pg/ml, further investigation warranted. - Knowledge of each individual patient's NT-proBNP range may be more useful than using similar cut-points for every patient. Please note that marked elevations in NT-proBNP levels may be observed in state other than Left Ventricular Congestive Failure, including: acute coronary syndromes, right heart strain/failure (including pulmonary embolism and cor pulmonale), critical illness, renal failure, as well as advanced age. - References: 1. Wu SWANSON et.al. Eur Heart J. 2006:27:330-337. 2. Lei RW, Rex AM. J. AM Dash Cardiol: Cardiovasc Imag. 2009;2: 216- 225. Interpretive Data Last Revised Date: 2018. Blood 05/07/2025 1:34 PM CDT 05/07/2025 6:19 PM CDT us Cosme Spivey SUPERVISORY EXAMINER LAB BLOOD ORDERABLES Final R esult [facility] [address] [facility] Department [place] [address] * (ABNORMAL) Basic metabolic panel (05/07/2025 1:34 PM CDT) Sodium 138 135 - 145 mmol/L Potassium, pl 3.3 3.3 - 4.9 mmol/L [facility] Chloride 97 97 - 110 mmol/L [facility] CO2 22 22 - 32 mmol/L [facility] Anion gap 19(H) 2 - 15 mmol/L [facility] BUN 32(H) 6 - 25 mg/dL [facility] Creatinine 1.37(H) 0.80 - 1.30 mg/dL [facility] Glucose 154 70 - 199 mg/dL [facility] Comment: Interpretive Data Fasting glucose >/= 126 mg/dl is diagnostic for diabetes. Fasting is defined as no caloric intake for at least 8 hours. Fasting glucose between 100 mg/dl to 125 mg/dl is diagnostic of prediabetes. In a patient with classic symptoms of hyperglycemia or hyperglycemic crisis, a random glucose >/= 200 mg/dl is diagnostic for diabetes. In the absence of unequivocal hyperglycemia, results should be confirmed by repeat testing. The classification and Diagnosis of Diabetes Diabetes Care 202; 46: S19-S40. Current interpretive data was last revised 2022. Calcium 9.9 8.5 - 10.3 mg/dL [facility] Blood 05/07/2025 1:34 PM CDT 05/07/2025 6:19 PM CDT us Cosme Spivey SUPERVISORY EXAMINER LAB BLOOD ORDERABLES Final R esult [facility] [address] [facility] [place] [address] * CT Chest PE (CTA) W Contrast (05/03/2025 4:33 PM CDT) Anatomical Region Laterality Modality Body N/A Computed Tomogra phy 05/03/2025 4:36 PM CDT Narrative 05/03/2025 4:54 PM CDT EXAM DESCRIPTION: CT CHEST PE (CTA) W CONTRAST REASON FOR STUDY: Pulmonary embolism (PE) suspected, high prob Sob today, worse with exertion and when laying down. Hx of HTN non smoker TECHNIQUE: CT angiogram of the chest performed with intravenous contrast using helical scanning technique with dynamic intravenous contrast injection. Reconstructed coronal and sagittal MPR images reviewed. All images stored on PACS. 3D MIP images rendered on scanning unit and reviewed at time of interpretation. Automated exposure control was used as a dose optimization technique for this examination. CONTRAST TYPE/DOSE: 75mL of IOVERSOL 350 MG IODINE/ML INTRAVENOUS SYRINGE injected via intravenous COMPARISON: 01/10/2024 FINDINGS: VASCULATURE: No identified pulmonary emboli. LUNGS: Diffuse chronic appearing lung changes are noted. Some emphysematous changes are seen in the upper lungs. This is worsened somewhat from previous. No consolidation is seen. PLEURA: No effusion. No pneumothorax. MEDIASTINUM/MARU: No identified masses or abnormal nodes. HEART: Heart size is mildly prominent with no pericardial effusion. AXILLA: No adenopathy. CHEST WALL: No masses. No subcutaneous air. HARDWARE/LINES/TUBES: None. UPPER ABDOMEN: Small gallstones are noted in the gallbladder. MUSCULOSKELETAL: Mild diffuse degenerative changes are noted. Slight compression fracture of T7 is unchanged from previous. OTHER: No significant abnormality. IMPRESSION: 1. No evidence of pulmonary embolism is seen. 2. Chronic appearing lung changes are noted. No acute process is seen. 3. Cholelithiasis. THIS IS AN ELECTRONICALLY VERIFIED FINAL REPORT 05/03/2025 4:54 PM - Electronically signed by Everardo Smiley M.D. KH: ZAKI Report ID: [id number] Reading Location: [place] [address] Procedure Note Everardo Smiley MD - 05/03/2025 EXAM DESCRIPTION: CT CHEST PE (CTA) W CONTRAST REASON FOR STUDY: Pulmonary embolism (PE) suspected, high prob Sob today, worse with exertion and when laying down. Hx of HTN non smoker TECHNIQUE: CT angiogram of the chest performed with intravenous contrastusing helical scanning technique with dynamic intravenous contrast injection. Reconstructed coronal and sagittal MPR images reviewed. All images storedon PACS. 3D MIP images rendered on scanning unit and reviewed at time of interpretation. Automated exposure control was used as a doseoptimization technique for this examination. CONTRAST TYPE/DOSE: 75mL of IOVERSOL 350 MG IODINE/ML INTRAVENOUSSYRINGE injected via intravenous COMPARISON: 01/10/2024 FINDINGS: VASCULATURE: No identified pulmonary emboli. LUNGS: Diffuse chronic appearing lung changes are noted. Someemphysematous changes are seen in the upper lungs. This is worsened somewhat fromprevious. No consolidation is seen. PLEURA: No effusion. No pneumothorax. MEDIASTINUM/MARU: No identified masses or abnormal nodes. HEART: Heart size is mildly prominent with no pericardial effusion. AXILLA: No adenopathy. CHEST WALL: No masses. No subcutaneous air. HARDWARE/LINES/TUBES: None. UPPER ABDOMEN: Small gallstones are noted in the gallbladder. MUSCULOSKELETAL: Mild diffuse degenerative changes are noted. Slight compression fracture of T7 is unchanged from previous. OTHER: No significant abnormality. IMPRESSION: 1. No evidence of pulmonary embolism is seen. 2. Chronic appearing lung changes are noted. No acute process is seen. 3. Cholelithiasis. THIS IS AN ELECTRONICALLY VERIFIED FINAL REPORT 05/03/2025 4:54 PM - Electronically signed by Everardo Smiley M.D. KH: ZAKI Report ID: [id number] Reading Location: [place] [address] Nicholas Eason MD IMG CT PROCEDURES Final Resu lt * (ABNORMAL) Troponin T high-sensitivity 2-hour (05/03/2025 3:41 PM CDT) Trop T hs 35(H) <=22 ng/L Comment: Interpretive Data For further hscTnT resources including the diagnostic algorithm and an aid in interpretation, copy and paste this link: [email or web address].testcatalog.org/[email or web address] Current Interpretive Data last revised 2020. Trop T hs delta -3 ng/L [facility] ([place]) Trop T hs interp Insignificant [facility] ([place]) Blood 05/03/2025 3:41 PM CDT 05/03/2025 3:45 PM CDT Eugene Hu MD LAB BLOOD ORDERABLES Final R esult [facility] ([place]) [address] [facility] Department [place] [address] * (ABNORMAL) Levetiracetam level (05/03/2025 3:41 PM CDT) Levetiracetam (Keppra) <1.0(L) 10.0 - 40.0 mcg/mL [facility] Comment: ADDITIONAL INFORMATION This test was developed and its performance characteristics determined by [facility] in a manner consistent with CLIA requirements. This test has not been cleared or approved by the U.S. Food and Drug Administration. Test Performed by: [facility] [address] [place] [address] Hospital Orderly: Keyon Kitchen Ph.D.; CLIA# [id number] Blood 05/03/2025 3:41 PM CDT 05/03/2025 3:45 PM CDT Nicholas Eason MD LAB BLOOD ORDERABLES Final R esult [facility] ([place]) [address] [facility] Department of Laboratories [place], [place] [id number] [facility] * XR Chest Pa Lateral 2 Vw (05/03/2025 2:54 PM CDT) Anatomical Region Laterality Modality Body, Chest N/A Computed Radiogr aphy 05/03/2025 2:56 PM CDT Narrative 05/03/2025 2:59 PM CDT EXAM DESCRIPTION: XR CHEST PA LATERAL 2 VIEWS REASON FOR STUDY: Shortness of Breath. Worse with exertion. TECHNIQUE: PA and lateral radiographic views of the chest COMPARISON: Chest radiograph 07/20/2023, CT chest 01/10/2024 FINDINGS: LUNGS/PLEURAE: Small lung volumes. Coarse interstitial markings are grossly similar likely chronic. No definite superimposed consolidation is seen although a subtle new opacity would be difficult to exclude. There is no pleural effusion. There is no pneumothorax. HEART/MEDIASTINUM: Heart size is normal. Normal mediastinal and hilar contours. HARDWARE/LINES/TUBES: None. BONES: Old right posterolateral 7th rib fracture. Mild compression fracture of T7 is unchanged. IMPRESSION: 1. Coarse interstitial markings are grossly similar and likely chronic. No definite superimposed consolidation is seen. 2. Small lung volumes. THIS IS AN ELECTRONICALLY VERIFIED FINAL REPORT 05/03/2025 2:59 PM - Electronically signed by Colin Hernandez M.D. LB: LB Report ID: [id number] Reading Location: [id number] Procedure Note Colin Hernandez MD - 05/03/2025 EXAM DESCRIPTION: XR CHEST PA LATERAL 2 VIEWS REASON FOR STUDY: Shortness of Breath. Worse with exertion. TECHNIQUE: PA and lateral radiographic views of the chest COMPARISON: Chest radiograph 07/20/2023, CT chest 01/10/2024 FINDINGS: LUNGS/PLEURAE: Small lung volumes. Coarse interstitial markings aregrossly similar likely chronic. No definite superimposed consolidation is seen although a subtle new opacity would be difficult to exclude. There is no pleural effusion. There is no pneumothorax. HEART/MEDIASTINUM: Heart size is normal. Normal mediastinal and hilar contours. HARDWARE/LINES/TUBES: None. BONES: Old right posterolateral 7th rib fracture. Mild compressionfracture of T7 is unchanged. IMPRESSION: 1. Coarse interstitial markings are grossly similar and likely chronic.No definite superimposed consolidation is seen. 2. Small lung volumes. THIS IS AN ELECTRONICALLY VERIFIED FINAL REPORT 05/03/2025 2:59 PM - Electronically signed by Colin Hernandez M.D. LB: LB Report ID: [id number] Reading Location: [id number] Nicholas Eason MD IMG XR PROCEDURES Final Resu lt * (ABNORMAL) D-dimer, quantitative (05/03/2025 2:11 PM CDT) D-Dimer 697(H) <=499 ng/mL [facility] Comment: Interpretive data FDA approved the D-dimer, in conjunction with a low or moderate pretest probability score, to exclude venous thromboembolic events (VTE) (PE and DVT) in outpatients when the D-dimer result is < 500 ng/ml FEU. Evidence supports using an age-adjusted D-dimer cut-off for outpatients older than 50 (age x 10) to improve specificity without sacrificing sensitivity. Example: age 67, VTE cut-off 680 ng/ml FEU. References; Schouten HT et al. Brit Med J. 2013;346:f2492. Alma et al. Annals Int Med. 2015;163:701-11. Current interpretive data was last revised on 2019. Blood 05/03/2025 2:11 PM CDT 05/03/2025 2:44 PM CDT Nicholas Eason MD LAB BLOOD ORDERABLES Final R [facility] Performing Organization Address [facility] Co de Phone Number [facility] G[facility]A ([place]) [address] [place] [address] [place] [address] * (ABNORMAL) Troponin T high-sensitivity series (baseline, 2hr, 4hr, 6hr) (05/03/2025 2:10 PM CDT) Pathologist [facility] Trop T hs 38(H) <=22 ng/L Comment: Interpretive Data For further hscTnT resources including the diagnostic algorithm and an aid in interpretation, copy and paste this link: [email or web address].org/[email or web address] Current Interpretive Data last revised 2020. Blood 05/03/2025 2:10 PM CDT 05/03/2025 2:13 PM CDT Nicholas Eason MD LAB BLOOD ORDERABLES Final R esult Performing Organization Address City/[facility] Co de Phone Number [facility]IA GUE[facility]A ([place]) 1 [facility] [place] [address] * eGFR (05/03/2025 2:10 PM CDT) Pathologist [facility] eGFR 73 >=60 mL/min/1. 73 m2 Comment: Interpretive Data Reference Interval Normal >/= 90 mL/min/1.73m2 Mildly decreased* 60 - 89 mL/min/1.73m2 Mildly to moderately decreased 45 - 59 mL/min/1.73m2 Moderately to severely decreased 30 - 44 mL/min/1.73m2 Severely decreased 15 - 29 mL/min/1.73m2 Kidney Failure < 15 mL/min/1.73m2 *Relative to young adult level Estimated glomerular filtration rate is determined by the 2020 CKD-EPI equation recommended by the National Kidney Foundation (A Unifying Approach to GFR Estimation: Recommendations of the NKF-ASK Task Force on Reassessing the Inclusion of Race in Diagnosing Kidney Disease, JASN 2020). The CKD-EPI equation should not be used for patients with unstable renal function and has not been validated in children and those over 70. Current interpretive data was last reviewed 2021. Blood 05/03/2025 2:10 PM CDT 05/03/2025 2:13 PM CDT us Eugene Hu MD LAB BLOOD ORDERABLES Final R esult [facility] ([place]) 1 [facility] Department [place] [address] * (ABNORMAL) Differential, auto (05/03/2025 2:10 PM CDT) Neutrophil abs 5.49 1.50 - 6.50 K/cumm Imm gran abs 0.01 0.00 - 0.10 K/cumm [facility] ([place]) Lymphocyte abs 0.57(L) 0.80 - 3.30 K/cumm [facility] ([place]) Monocyte abs 0.88(H) 0.20 - 0.80 K/cumm [facility] ([place]) Eosinophil abs 0.04 0.00 - 0.50 K/cumm [facility] ([place]) Basophil abs 0.02 0.00 - 0.10 K/cumm [facility] ([place]) Neutrophil pct 78.3 % [facility] ([place]) Comment: Interpretive Data Percent cell count reference ranges are not reported, since discordance with absolute values may lead to misinterpretation of CBC data. Current Interpretive Data was last revised on 2017. Imm gran pct 0.1 % [facility] ([place]) Comment: Interpretive Data Percent cell count reference ranges are not reported, since discordance with absolute values may lead to misinterpretation of CBC data. Current Interpretive Data was last revised on 2017. Lymphocyte pct 8.1 % [facility] ([place]) Comment: Interpretive Data Percent cell count reference ranges are not reported, since discordance with absolute values may lead to misinterpretation of CBC data. Current Interpretive Data was last revised on 2017. Monocyte pct 12.6 % [facility] ([place]) Comment: Interpretive Data Percent cell count reference ranges are not reported, since discordance with absolute values may lead to misinterpretation of CBC data. Current Interpretive Data was last revised on 2017. Eosinophil pct 0.6 % [facility] ([place]) Comment: Interpretive Data Percent cell count reference ranges are not reported, since discordance with absolute values may lead to misinterpretation of CBC data. Current Interpretive Data was last revised on 2017. Basophil pct 0.3 % [facility] ([place]) Comment: Interpretive Data Percent cell count reference ranges are not reported, since discordance with absolute values may lead to misinterpretation of CBC data. Current Interpretive Data was last revised on 2017. Blood 05/03/2025 2:10 PM CDT 05/03/2025 2:13 PM CDT Eugene Hu MD LAB BLOOD ORDERABLES Final R esult [facility] ([place]) 1 [facility] Department of Laboratories [place], [place] [id number] * (ABNORMAL) Pro B-type natriuretic peptide (05/03/2025 2:10 PM CDT) NT-proBNP 1,441(H) <=300 pg/mL Comment: Interpretive Comments: A. Dyspnea in Acute Care Setting All Ages: < 300 pg/ml, acute heart failure unlikely. < 50 yrs: 300 - 450 pg/ml, further investigation warranted. > 450 pg/ml, acute heart failure likely. 50 - 74 yrs: 300 - 900 pg/ml, further investigation warranted. > 900 pg/ml, acute heart failure likely . > or = 75 yrs: 450 - 1800 pg/ml, further investigation warranted. > 1800 pg/ml, acute heart failure likely. B. Non-acute Setting < 75 yrs < 125 pg/ml, rules out heart failure. > or = 125 pg/ml, further investigation warranted. > or = 75 yrs < 450 pg/ml, rules out heart failure. > or = 450 pg/ml, further investigation warranted. - Knowledge of each individual patient's NT-proBNP range may be more useful than using similar cut-points for every patient. Please note that marked elevations in NT-proBNP levels may be observed in state other than Left Ventricular Congestive Failure, including: acute coronary syndromes, right heart strain/failure (including pulmonary embolism and cor pulmonale), critical illness, renal failure, as well as advanced age. - References: 1. Wu SWANSON et.al. Eur Heart J. 2006:27:330-337. 2. Lei RW, Rex WILLINGHAM. J. AM Dash Cardiol: Cardiovasc Imag. 2009;2: 216- 225. Interpretive Data Last Revised Date: 2018. Blood 05/03/2025 2:10 PM CDT 05/03/2025 2:52 PM CDT us Nicholas Eason MD LAB BLOOD ORDERABLES Final R esult [facility] ([place]) 1 [facility] Department of Laboratories [place], [place] [id number] * (ABNORMAL) CBC with auto differential (05/03/2025 2:10 PM CDT) WBC 7.01 3.80 - 9.90 K/cumm Hgb 9.5(L) 13.0 - 17.5 g/dL [facility] ([place]) Hct 29.1(L) 38.9 - 50.3 % [facility] ([place]) Plt 144(L) 150 - 400 K/cumm [facility] ([place]) MPV 9.8 9.1 - 12.3 fL [facility] ([place]) RBC 2.66(L) 4.30 - 5.80 M/cumm [facility] ([place]) MCV 109.4(H) 81.3 - 96.4 fL [facility] ([place]) MCH 35.7(H) 27.1 - 33.3 pg [facility] ([place]) MCHC 32.6 32.3 - 35.7 g/dL [facility] ([place]) RDW CV 14.8 11.1 - 14.9 % [facility] ([place]) RDW SD 59.7(H) 35.7 - 48.1 fL [facility] ([place]) NRBC abs 0.00 0.00 - 0.01 K/cumm [facility] ([place]) Blood 05/03/2025 2:10 PM CDT 05/03/2025 2:13 PM CDT Nicholas Eason MD LAB BLOOD ORDERABLES Final R esult [facility] ([place]) 1 [facility] [place] [address] * (ABNORMAL) Comprehensive metabolic panel (05/03/2025 2:10 PM CDT) Sodium 127(L) 135 - 145 mmol/L Potassium, pl 3.4 3.3 - 4.9 mmol/L [facility] ([place]) Chloride 92(L) 97 - 110 mmol/L [facility] ([place]) CO2 22 22 - 32 mmol/L [facility] ([place]) Anion gap 13 2 - 15 mmol/L [facility] ([place]) BUN 22 6 - 25 mg/dL [facility] ([place]) Creatinine 1.09 0.80 - 1.30 mg/dL [facility] ([place]) Glucose 215(H) 70 - 199 mg/dL [facility] ([place]) Comment: Interpretive Data Fasting glucose >/= 126 mg/dl is diagnostic for diabetes. Fasting is defined as no caloric intake for at least 8 hours. Fasting glucose between 100 mg/dl to 125 mg/dl is diagnostic of prediabetes. In a patient with classic symptoms of hyperglycemia or hyperglycemic crisis, a random glucose >/= 200 mg/dl is diagnostic for diabetes. In the absence of unequivocal hyperglycemia, results should be confirmed by repeat testing. The classification and Diagnosis of Diabetes Diabetes Care 2021; 46: S19-S40. Current interpretive data was last revised 2022. Calcium 9.5 8.5 - 10.3 mg/dL [facility] ([place]) Bilirubin, total 1.0 0.1 - 1.2 mg/dL [facility] ([place]) Protein, pl 7.6 6.5 - 8.5 g/dL [facility] ([place]) Albumin 4.2 3.5 - 5.0 g/dL [facility] ([place]) Alk phos 162(H) 40 - 130 Units/L [facility] ([place]) ALT 12 7 - 55 Units/L [facility] ([place]) AST 28 10 - 50 Units/L [facility] ([place]) Blood 05/03/2025 2:10 PM CDT 05/03/2025 2:13 PM CDT us Nicholas Eason MD LAB BLOOD ORDERABLES Final R esult [facility] ([place]) 1 [facility] Department [place] [address] * ECG 12 lead (05/03/2025 2:07 PM CDT) 05/03/2025 2:07 PM CDT Narrative [facility] - 05/05/2025 6:54 AM CDT Vent Rate: 95 bpm RR Interval: 631 msec [place] Interval: 240 msec QRS Duration: 79 msec QT Interval: 324 msec QTC Interval: 376 msec P-R-T Barbeau: 37 - -17 - 32 degrees IMPRESSION: Baseline artifact, probable SINUS RHYTHM WITH FIRST DEGREE AV BLOCK WITH FREQUENT SUPRAVENTRICULAR PREMATURE COMPLEXES INFERIOR MYOCARDIAL INFARCTION , OF INDETERMINATE AGE [40+ ms Q WAVE AND/OR ST/T ABNORMALITY IN II/aVF] ABNORMAL ECG Electronically Signed By: Terrell Copeland MD Nicholas Eason MD ECG ORDERABLES Final Result [facility] * Stool DNA - Cologuard (09/23/2024 9:30 AM CDT) Stool DNA - Cologuard Negative Negative [employer] (CLIA #:[id number]) Comment: NEGATIVE TEST RESULT. A negative Cologuard result indicates a low likelihood that a colorectal cancer (CRC) or advanced adenoma (adenomatous polyps with more advanced pre-malignant features) is present. The chance that a person with a negative Cologuard test has a colorectal cancer is less than 1 in 1500 (negative predictive value >99.9%) or has an advanced adenoma is less than 5.3% (negative predictive value 94.7%). These data are based on a prospective cross-sectional study of 10,000 individuals at average risk for colorectal cancer who were screened with both Cologuard and colonoscopy. (Siobhan Caballero et al, N Engl J Med 2014;370(14):4104-3618) The normal value (reference range) for this assay is negative. COLOGUARD RE-SCREENING RECOMMENDATION: Periodic colorectal cancer screening is an important part of preventive healthcare for asymptomatic individuals at average risk for colorectal cancer. Following a negative Cologuard result, the [place] Cancer Society and U.S. Multi-Society Task Force screening guidelines recommend a Cologuard re-screening interval of 3 years. References: [place] Cancer Society Guideline for Colorectal Cancer Screening: https://www.cancer.org/cancer/ribpp-bbmvez-ogetba/tivevjltj-invaajjud-fvtkwiu/ac s-rec ommendations.html.; Khalif DK, Kenrick CR, Hero McclainK, Colorectal Cancer Screening: Recommendations for Physicians and Patients from the U.S. Multi-Society Task Force on Colorectal Cancer Screening , Am J Gastroenterology 2017; 112:3820-6528. TEST DESCRIPTION: Composite algorithmic analysis of stool DNA-biomarkers with hemoglobin immunoassay. Quantitative values of individual biomarkers are not reportable and are not associated with individual biomarker result reference ranges. Cologuard is intended for colorectal cancer screening of adults of either sex, 45 years or older, who are at average-risk for colorectal cancer (CRC). Cologuard has been approved for use by the U.S. FDA. The performance of Cologuard was established in a cross sectional study of average-risk adults aged 50-84. Cologuard performance in patients ages 45 to 49 years was estimated by sub-group analysis of near-age groups. Colonoscopies performed for a positive result may find as the most clinically significant lesion: colorectal cancer [4.0%], advanced adenoma (including sessile serrated polyps greater than or equal to 1cm diameter) [20%] or non- advanced adenoma [31%]; or no colorectal neoplasia [45%]. These estimates are derived from a prospective cross-sectional screening study of 10,000 individuals at average risk for colorectal cancer who were screened with both Cologuard and colonoscopy. (Siobhan Marshall al, N Engl J Med 2014;370(14):9335-7065.) Cologuard may produce a false negative or false positive result (no colorectal cancer or precancerous polyp present at colonoscopy follow up). A negative Cologuard test result does not guarantee the absence of CRC or advanced adenoma (pre-cancer). The current Cologuard screening interval is every 3 years. ([place] Cancer Society and U.S. Multi-Society Task Force). Cologuard performance data in a 10,000 patient pivotal study using colonoscopy as the reference method can be accessed at the following location: [email or web address]. Additional description of the Cologuard test process, warnings and precautions can be found at [email or web address]. Stool 09/23/2024 9:30 AM CDT 09/25/2024 9:54 AM CDT us Juliana Hannah NP LAB BODY FLUIDS AND STOOLS ORDER [place] Final Result [employer] (CLIA #:[id number]) [address] [place] [address] * PSA screen (08/07/2024 1:40 PM [employer]CHIT[employer]) PSA-Total 2.80 <=6.20 ng/mL Comment: Interpretive Data AGE SEX REFERENCE INTERVAL 0 minutes-150 years Female None 0 minutes-49 years Male None 50-59 years Male 0-3.90 60-69 years Male 0-5.40 70-79 years Male 0-6.20 80-150 years Male 0-6.20 The Darlene PSA Total assay procedure was used. Results from different manufacturers or methods may not be comparable. Serial testing should be performed using the same method. Current interpretive data last revised 21. Blood 08/07/2024 1:40 PM [employer] SOFTWARE ARCHITECT 08/07/2024 8:13 PM [employer] SOFTWARE ARCHIT[employer] us Juliana Hannah NP LAB BLOOD ORDERABLES Final Resul t [facility] [address] [place] [address] * CT Lung Cancer Screening (01/10/2024 11:38 AM CDT) Anatomical Region Laterality Modality Chest N/A Computed Tomogra phy 01/11/2024 9:27 AM CDT Narrative 01/11/2024 9:38 AM CDT EXAM DESCRIPTION: CT LUNG CANCER SCREENING REASON FOR STUDY: Screening CT of the chest in a former smoker with a 70 pack year smoking history. Additional history: None. TECHNIQUE: Low dose CT scan of the chest was performed without intravenous contrast using helical scanning technique. The exam extends from the lung apices through the lung bases. Automatic exposure control was used as a dose optimization technique. NOTE: This study was performed for the specific purposes of lung cancer screening and is not an alternative to diagnostic chest CT. RADIATION DOSE: CT dose index volume (CTDIvol) = 2.47 mGy COMPARISON: 10/15/2022 FINDINGS: SMOKING RELATED LUNG DISEASE: There are [id number]-[id number] emphysematous changes of lungs with scattered subsegmental atelectasis and scarring. There is scattered mild interlobular septal thickening with associated reticulations and ground-glass opacities, which is most significant in the periphery of the bilateral lungs, and is concerning for chronic interstitial changes, possibly due to UIP. There is mild biapical pleural thickening and scarring. There is no definite evidence of a pneumothorax. The central airways are grossly patent. There is scattered mild bronchial wall thickening, which is likely related to mild chronic bronchitis/bronchiolitis. There is no definite evidence of focal consolidation or pleural effusion. LUNG NODULES: There are scattered pulmonary nodules noted, similar to the prior study. For example, there is a stable irregular 0.6 cm right lower lobe pulmonary nodule abutting the right major fissure (axial image 171). There is a stable 0.3 cm left lower lobe pulmonary nodule abutting the left major fissure (axial image 71). CORONARY ARTERY CALCIFICATION: Present. OTHER: The heart size is normal. There is no definite evidence of a pericardial effusion. There are atherosclerotic changes of the thoracic aorta and coronary vessels. There is dilatation of the main pulmonary artery measuring up to 5.0 cm, which is concerning for pulmonary arterial hypertension. There is no definite unenhanced CT evidence of mediastinal, hilar, or axillary lymphadenopathy. There are scattered subcentimeter mediastinal lymph nodes noted with largest measuring 0.8 cm in the subcarinal region (axial image 121). There is a small hiatal hernia. The bilateral adrenal glands are grossly symmetrical and unremarkable. There are scattered colonic diverticula noted. There is mild osteopenia. There is minimal to mild dextroscoliotic curvature of the spine with degenerative changes. IMPRESSION: Redemonstration scattered pulmonary nodules with the largest measuring 0.6 cm in the right lower lobe abutting the right major fissure. No definite evidence of a new suspicious pulmonary nodule. Lzzz-vy-fnkemlwi emphysematous changes of lungs with scattered subsegmental atelectasis and scarring. Scattered mild interlobular septal thickening with associated reticulations and ground-glass opacities, which is most significant in the periphery of the bilateral lungs, and is concerning for chronic interstitial changes, possibly due to UIP. Scattered mild bronchial wall thickening, which is likely related to mild chronic bronchitis/bronchiolitis. Lung-RADS category 2S: Benign appearance or behavior. Finding other than a pulmonary nodule which is potentially clinically significant. Recommendation: Low dose Screening CT of chest in 12 months. THIS IS AN ELECTRONICALLY VERIFIED FINAL REPORT 01/11/2024 9:38 AM - Electronically signed by Esther Graves D.O. PS: PS Report ID: [id number] Reading Location: [id number] Procedure Note Esther Graves Quinn, DO - 01/11/2024 EXAM DESCRIPTION: CT LUNG CANCER SCREENING REASON FOR STUDY: Screening CT of the chest in a former smoker with a70 pack year smoking history. Additional history: None. TECHNIQUE: Low dose CT scan of the chest was performed without intravenous contrast using helical scanning technique. The exam extends from the lung apices through the lung bases. Automatic exposure control was used as adose optimization technique. NOTE: This study was performed for the specific purposes of lung cancer screening and is not an alternative to diagnostic chest CT. RADIATION DOSE: CT dose index volume (CTDIvol) = 2.47 mGy COMPARISON: 10/15/2022 FINDINGS: SMOKING RELATED LUNG DISEASE: There are rnrj-rh-sampnorc emphysematous changes of lungs with scattered subsegmental atelectasis and scarring.There is scattered mild interlobular septal thickening with associatedreticulations and ground-glass opacities, which is most significant in the periphery ofthe bilateral lungs, and is concerning for chronic interstitial changes,possibly due to UIP. There is mild biapical pleural thickening and scarring.There is no definite evidence of a pneumothorax. The central airways are grossly patent. There is scattered mild bronchial wall thickening, which islikely related to mild chronic bronchitis/bronchiolitis. There is no definite evidence of focal consolidation or pleural effusion. LUNG NODULES: There are scattered pulmonary nodules noted, similar tothe prior study. For example, there is a stable irregular 0.6 cm right lowerlobe pulmonary nodule abutting the right major fissure (axial image 171).There is a stable 0.3 cm left lower lobe pulmonary nodule abutting the left major fissure (axial image 71). CORONARY ARTERY CALCIFICATION: Present. OTHER: The heart size is normal. There is no definite evidence of a pericardial effusion. There are atherosclerotic changes of the thoracicaorta and coronary vessels. There is dilatation of the main pulmonary artery measuring up to 5.0 cm, which is concerning for pulmonary arterial hypertension. There is no definite unenhanced CT evidence of mediastinal, hilar, oraxillary lymphadenopathy. There are scattered subcentimeter mediastinal lymphnodes noted with largest measuring 0.8 cm in the subcarinal region (axial [id number]). There is a small hiatal hernia. The bilateral adrenal glands are grossly symmetrical and unremarkable. There are scattered colonic diverticulanoted. There is mild osteopenia. There is minimal to mild dextroscolioticcurvature of the spine with degenerative changes. IMPRESSION: Redemonstration scattered pulmonary nodules with the largest measuring0.6 cm in the right lower lobe abutting the right major fissure. No definiteevidence of a new suspicious pulmonary nodule. Ucwf-il-fnthcqkc emphysematous changes of lungs with scatteredsubsegmental atelectasis and scarring. Scattered mild interlobular septal thickening with associatedreticulations and ground-glass opacities, which is most significant in the periphery ofthe bilateral lungs, and is concerning for chronic interstitial changes,possibly due to UIP. Scattered mild bronchial wall thickening, which is likely related to mild chronic bronchitis/bronchiolitis. Lung-RADS category 2S: Benign appearance or behavior. Finding other thana pulmonary nodule which is potentially clinically significant. Recommendation: Low dose Screening CT of chest in 12 months. THIS IS AN ELECTRONICALLY VERIFIED FINAL REPORT 01/11/2024 9:38 AM - Electronically signed by Esther Graves D.O. PS: PS Report ID: [id number] Reading Location: [place] [address] Gab Diaz MD IMG CT PROCEDURES Final Result * US Abdominal Aortic Aneurysm Screening (01/03/2024 11:45 AM CDT) Anatomical Region Laterality Modality Abdomen Ultrasound 01/05/2024 12:5 5 PM CDT Narrative 01/05/2024 12:56 PM CDT EXAM DESCRIPTION: US ABDOMINAL AORTIC ANEURYSM SCREENING REASON FOR STUDY: AAA screening TECHNIQUE: Grayscale images acquired of the aorta and stored on PACS. Selected color Doppler and spectral images recorded. COMPARISON: None FINDINGS: Suboptimal examination due to habitus and overlying bowel gas. AORTIC CALIBER MAXIMAL PROXIMAL: 1.9 x 2.0 cm. MID: 1.8 x 1.9 cm. DISTAL: 1.9 x 2.1 cm. ILIAC DIAMETER RIGHT: 0.7 x 1.1 cm. LEFT: 0.6 x 1.0 cm. OTHER: No other significant finding. IMPRESSION: 1. No abdominal aortic aneurysm is seen. REFERENCE: Please see below follow up recommendations for abdominal aortic aneurysm surveillance per Society for Vascular Surgery Guidelines: < 2.5 cm No follow up or future screenings necessary 2.52.9 cm Recommended ultrasound follow up every 10 years 3.0-3.9 cm Recommended ultrasound follow up every 3 years 4.0-4.9 cm Recommended ultrasound follow up every 12 months, vascular surgery consult 5.0-5.4 cm Recommended ultrasound follow up every 6 months, vascular surgery consult >= 5.5 cm Referral to vascular surgeon Based upon Society for Vascular Surgery Guidelines: J Vasc Surgery 2008 50: [id number]; updated Jul 2017 J Vasc Surgery 67:277 THIS IS AN ELECTRONICALLY VERIFIED FINAL REPORT 01/05/2024 12:56 PM - Electronically signed by Homero Hart M.D. AG: BENJA Report ID: [id number] Reading Location: [id number] Procedure Note Homero Hart MD - 01/05/2024 EXAM DESCRIPTION: US ABDOMINAL AORTIC ANEURYSM SCREENING REASON FOR STUDY: AAA screening TECHNIQUE: Grayscale images acquired of the aorta and stored on PACS.Selected color Doppler and spectral images recorded. COMPARISON: None FINDINGS: Suboptimal examination due to habitus and overlying bowel gas. AORTIC CALIBER MAXIMAL PROXIMAL: 1.9 x 2.0 cm. MID: 1.8 x 1.9 cm. DISTAL: 1.9 x 2.1 cm. ILIAC DIAMETER RIGHT: 0.7 x 1.1 cm. LEFT: 0.6 x 1.0 cm. OTHER: No other significant finding. IMPRESSION: 1. No abdominal aortic aneurysm is seen. REFERENCE: Please see below follow up recommendations for abdominal aortic aneurysm surveillance per Society for Vascular Surgery Guidelines: < 2.5 cm No follow up or future screenings necessary 2.52.9 cm Recommended ultrasound follow up every 10 years 3.0-3.9 cm Recommended ultrasound follow up every 3 years 4.0-4.9 cm Recommended ultrasound follow up every 12 months, vascularsurgery consult 5.0-5.4 cm Recommended ultrasound follow up every 6 months, vascularsurgery consult >= 5.5 cm Referral to vascular surgeon Based upon Society for Vascular Surgery Guidelines: J Vasc Surgery 2009Oct 50: s2s49; updated Jul 2017 J Vasc Surgery 67:277 THIS IS AN ELECTRONICALLY VERIFIED FINAL REPORT 01/05/2024 12:56 PM - Electronically signed by Homero Hart M.D. AG: AG Report ID: [id number] Reading Location: [place] [address] Juliana Hannah NP IMG US PROCEDURES Final Result * Hepatitis C antibody (10/24/2022 1:13 PM CDT) Hep C Ab Nonreactive Nonreactive TAVIA HERNANDEZ Comment: Interpretive Data Nonreactive: Antibodies to HCV not detected. Does NOT exclude the possibility of recent exposure to HCV. Equivocal: Equivocal for HCV antibodies. Supplemental molecular testing will be automatically performed to determine infection status in accordance with current CDC screening recommendations. Reactive: Positive for HCV antibodies. This may represent current or past HCV infection. Supplemental molecular testing will be automatically performed to determine current infection status in accordance with current CDC screening recommendations. Interpretive data was last revised on 2019. Blood 10/24/2022 1:13 PM CDT 10/24/2022 7:18 PM CDT Result [facility] Juliana Hannah NP LAB MICROBIOLOGY - GENERAL ORDER [place] Final Result [facility] [address] Department [place] [address] * Diabetic Eye Exam (03/15/2021) Historical Provider HEALTH MAINTENANCE Final Result from Last 3 Months or Most Recently Relevant to Health Maintenance Insurance MEDICARE [facility] MEDICARE BLUE CROSS MEDICARE SUPPLEMENT Advance Directives For more information, please contact: [phone] * Full Code (Latest Code Status on File) Date Activated Date Inactivated Comments 07/20/2023 12:17 PM 07/22/2023 6:02 PM Healthcare Agents on File Name Relationship Healthcare Agent Jake Damian Daughter Health Care Agent Care Teams Wood Mechanist Relationship Specialty Start Date End Date Juliana Hannah NP PCP - General Family Medicine 09/19/22 Bbo Pollard MD Consulting Physician Cardiovascular Disease 07/22/23
--- OUTSIDE RECORDS SUMMARY | 2025-05-11 14:00 | XMS_ITS | Encounter Summary ---
Author Organization [facility] Healthcare Address [address] [place] [address] Care Team Providers Care Languages And Literature Instructor Name Role Phone Mamie Bartholomew NP Primary Care Provider [phone] Bob Pollard MD Unavailable [phone] Encounter Details Date Type Department Care Team (Late st Contact Info) Description 05/08/2025 Results Follow-Up [facility] Primary Care at [address] [address] Mamie Bartholomew NP [address] [place] [address] [address] [place] [address] Ferritin, Iron level, Lipid panel, Additional followed-up results: 4 Social History Tobacco Use Types Packs/Day Years Used Date Smoking Tobacco: Former Cigarettes 2 38 0 09/15/1974 - 09/15/2012 Passive Smoke Exposure: Past Smokeless Tobacco: Never [facility] Utilities Answer Date Recorded In the past 12 months has [email or web address], gas, oil, or water company threatened to [...] week 07/21/2023 How often do you attend [facility] or quaker services? Never 07/21/2023 Do you belong to any clubs o r organizations such as pentecostalism groups, unions, fraternal or athletic groups, or [...] place to sleep or slept in a intermediate (including now)? No 07/21/2023 Personal Safety Answer Date Recorded Have you ever been in or are you currently in a harmful physical or emotional relationship or is someone making you feel afraid or unsafe? 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 Gender Identity Not on file Sexual Orientation Not on file documented as of this encounter Plan of Treatment Scheduled Orders Name Type Priority Associated Diagnoses Orde r Schedule CBC with auto differential Lab Routine Elevated ferritin Expected: 05/22/2025 (Approximate), Expires: 08/20/2025 Iron profile w/ IBC Lab Routine Elevated ferritin Expected: 05/22/2025 (Approximate), Expires: 08/20/2025 Ferritin Lab Routine Elevated ferritin Expected: 05/22/2025 (Approximate), Expires: 08/20/2025 Slide review - pathologist Lab Routine Elevated ferritin Expected: 05/22/2025 (Approximate), Expires: 08/20/2025 documented as of this encounter Visit Diagnoses Diagnosis Elevated ferritin- Primary Other abnormal blood chemistry documented in this encounter Care Teams Languages And Literature Instructor Relationship Specialty Start Date End Date Mamie Bartholomew NP PCP - General Family Medicine 09/19/22 Bob Pollard MD Consulting Physician Cardiovascular Disease 07/22/23 documented as of this encounter
[2025-05-11 14:20] LABS: Anisocytosis 1+; Macrocytosis 1+ (NORMAL); Schistocytes None Seen
--- NOTE | 2025-05-11 14:39 | ED_ITS ---
HPI - SOB/Dyspnea General Chief Complaint: Shortness of Breath/Dyspnea Stated Complaint: SOB Time Seen by Provider: 05/11/25 13:16 History of Present Illness HPI Narrative: Patient is a 70-year-old male who presents ER with shortness of breath. Ongoing for couple weeks. He was seen at an ER in [place] on 05/01/2025. He had lab work in a CTA to rule out PE performed. He was told he had some heart failure due to a BNP around 800. He has had his Lasix increased from 40 mg twice a day to 80 mg twice a day. He feels dehydrated. He continues to have dyspnea. Had an echocardiogram performed 2 days ago and the results show an ejection fraction of 65-70% and some mild aortic stenosis. Denies fevers but has had chills. Patient has been using Mucinex due to cough and congestion the nose and chest. Feels more short of breath at night. Related Data Allergies Allergy/AdvReac Type Severity Reaction Status Date / Time No Known Allergies Allergy Verified 05/11/25 13:34 Review of Systems 2 Review of Systems: All systems reviewed & are unremarkable except as noted in HPI and below Constitutional: Constitutional: Reports no additional constitutional complaints ENT: Reports system reviewed and no additional complaints, except as documented Cardiovascular: Cardiovascular: Reports no additional cardiovascular complaints Respiratory: Respiratory: Reports no additional respiratory complaints Musculoskeletal: Musculoskeletal: Reports no additional musculoskeletal complaints PMFSH Past Medical History Medical History (Updated 05/11/25 @ 16:16 by Luis Calixto MD) COPD (chronic obstructive pulmonary disease) (HFpEF) heart failure with preserved ejection fraction Diabetes Hyperlipidemia Hypertension Social History Social History (Updated 05/11/25 @ 14:45 by Luis Calixto MD) Social History: Former smoker Years smoked: 30 Exam 2 Narrative: GENERAL: Well-appearing, well-nourished, and in no acute distress. HEAD: Normocephalic, atraumatic. ENT: Mucous membranes moist. CHEST: Clear to auscultation. No respiratory distress. HEART: Regular rate and rhythm. Normal peripheral pulses. ABDOMEN: Soft, nontender, nondistended. EXTREMITIES: Normal range of motion. Trace edema. SKIN: Warm, dry, no rash. NEURO: Alert and oriented x3. PSYCH: Normal mood and affect. Course Course Emergency Course: Patient up oxycodone ambulation after nebulizer treatment. He drops down into the 80s after 20 ft and then the 70s after 30 ft. He does go back up after a minute of rest. No chest pain. Admit to hospitalist. IV antibiotics ordered. May need home O2. Vital Signs Vital signs: Vital Signs Temperature 98.1 F 05/11/25 13:28 Pulse Rate 105 H 05/11/25 13:28 Respiratory Rate 20 05/11/25 13:28 Blood Pressure 102/61 05/11/25 13:28 Pulse Oximetry 100 05/11/25 13:28 Oxygen Delivery Room Air 05/11/25 13:28 Temperature 98.1 F 05/11/25 13:28 Pulse Rate 104 H 05/11/25 15:38 Respiratory Rate 20 05/11/25 15:38 Blood Pressure 105/62 05/11/25 15:38 Pulse Oximetry 93 05/11/25 15:38 Oxygen Delivery Room Air 05/11/25 13:35 MDM - SOB/Dyspnea Lab Data Attestation: I reviewed the patient's lab results. 05/11/25 13:27 05/11/25 13:27 Labs: Lab Results 05/11/25 05/11/25 Range/Units 13:27 14:42 WBC 8.1 (4.5-10.0) K/mm3 RBC 2.77 L (4.6-6.20) M/mm3 Hgb 9.8 L (14.0-18.0) g/dL Hct 30.8 L (42.0-52.0) % MCV 111.2 H (80-100) fl MCH 35.4 H (26-34) pg MCHC 31.8 L (32-36) g/dl RDW 15.1 H (11.5-14.5) % Plt Count 162 (150-375) k/mm3 MPV 9.8 (7.4-10.4) fl Immature Gran % (Auto) 0.5 (0-0.5) % Neut % (Auto) 76.6 H (45.5-73.1) % Lymph % (Auto) 8.8 L (18.3-44.2) % [place] % (Auto) 12.8 H (2.6-8.5) % Eos % (Auto) 0.9 (0-4.4) % Baso % (Auto) 0.4 (0.2-1.2) % Lymph # (Auto) 0.71 L (0.9-3.2) K/mm3 [place] # (Auto) 1.0 H (0.1-0.6) K/mm3 Eos # (Auto) 0.1 (0-0.3) K/mm3 Baso # (Auto) 0.0 (0.0-0.1) K/mm3 Abs Immat Gran (auto) 0.04 H (0.00-0.031) K/mm3 Absolute Neuts (auto) 6.2 (1.3-6.7) K/mm3 Absolute Nucleated RBC 0.000 (0.0-0.012) K/mm3 Band Neutrophils % Not Reportable Nucleated RBC % 0.0 (0.0-0.2) % Platelet Estimate Adequate (Adequate) Anisocytosis 1+ Macrocytosis 1+ (NORMAL) Schistocytes None seen PT 15.2 H (11.1-14.7) Seconds INR 1.2 APTT 35.7 (22.3-36.8) Seconds Sodium 138 (137-145) mmol/L Potassium 3.8 (3.4-5.0) mmol/L Chloride 102 (98-107) mmol/L Carbon Dioxide 23 (22-30) mmol/L Anion Gap 13 H (4-12) mmol/L BUN 48 H (9-20) mg/dL Creatinine 1.54 H (0.7-1.3) mg/dL Estim Creat Clear Calc 44 ml/min Estimated GFR 45 L (59 - ) Glucose 155 H (65-110) mg/dL Calcium 9.4 (8.4-10.2) mg/dL Total Bilirubin 1.2 (0.2-1.3) mg/dL AST 35 (17-59) U/L ALT 22 (6-50) U/L Alkaline Phosphatase 160 H (38-126) U/L Troponin I 0.012 (0.000-0.034) ng/mL NT-Pro-B Natriuret Pep 778 H (19.9-100) pg/mL Total Protein 8.7 H (6.3-8.2) g/dL Albumin 4.4 (3.5-5.1) g/dL Influenza A (RT-PCR) Negative (Negative) Influenza B (RT-PCR) Negative (Negative) SARS-CoV-2 RNA (RT-PCR) Negative (Negative) Imaging Data Radiologist's impression: ITS Impressions Chest X-Ray 05/11/25 14:34 Impression: Bilateral pneumonia Discharge Plan Discharge Clinical Impression: Community acquired pneumonia, Hypoxia, COPD (chronic obstructive pulmonary disease) Patient Disposition: Still a Patient Condition: Stable Patient Language: Mozambican Follow-up/Referrals: [place],Mamie Raamn, ROUTE SALES SPECIALIST [Primary Care Provider, Unknown]
[2025-05-11] MEDS: IPRATROPIUM 0.5 MG/ALBUTEROL SULFATE 2.5 MG (BASE) AMPUL.NEB 3 ML INHALATION ×2 (15:04→20:10)
[2025-05-11 15:30] LABS: Influenza A QL RT-PCR Negative (Negative); Influenza B QL RT-PCR Negative (Negative); SARS-CoV-2 RNA PCR Negative (Negative)
[2025-05-11] MEDS: cefTRIAXone 1 GM in SODIUM CHLORIDE 0.9% IV 50 ML 100 ML IVPB (15:48)
--- NOTE | 2025-05-11 16:00 | PM.IMHP ---
H&P: HPI History of Present Illness Date/Time: 05/11/25 16:00 Chief Complaint: Shortness of Breath Narrative: 70 y/o M with PMH of HFpEF, COPD, former smoker, mild aortic stenosis, diabetes, hyperlipidemia, and hypertension presents here with shortness of breath. The patient presents here from home on 05/11 for further evaluation of shortness of breath. He reports the shortness of breath has been ongoing for the past couple of weeks. Worsens with exertion and at night. He was initially evaluated at [facility] on 05/01/2025. At that time he underwent a CTA which was negative for PE. Patient had an elevated BNP around 800 at that time, echo was completed which showed ejection fraction of 65-70% and some mild aortic stenosis. He was previously on Lasix 40 mg b.i.d. which was subsequently increased to 80 mg b.i.d.. He reports he has been currently feeling dehydrated since the medication change and he has had no change in his current shortness of breath. He reports an accompanying dry cough, congestion, chills, and feeling warm. He denies associated nausea, vomiting, chest pain, diarrhea, abdominal pain, melena or hematochezia. Upon initial evaluation in the emergency department the patient was 100% on room air at rest. Patient was later ambulated by the ED physician and his oxygen dropped to 84% on room air with only a short distance. Initial VS at presentation: 98.1? F, HR 105, RR 20, 102/61, 100% on RA. ED workup showed: WBC 8.1, hemoglobin 9.8 (no previous available for comparison), INR 1.2, no significant electrolyte derangements, creatinine 1.54 and GFR 45 (no previous for comparison), glucose 155, BNP 778 (normal for age), and initial troponin 0.012. Viral PCR negative. CXR showed bilateral pneumonia. EKG showed sinus rhythm with first-degree AV block, incomplete right bundle branch block, delayed precordial R/S transition, low QRS voltage in precordial leads, inferior infarct age indeterminate. Review of Systems Review of Systems: All systems reviewed & are unremarkable except as noted in HPI and below PMFSH Past Medical History Medical History COPD (chronic obstructive pulmonary disease) (HFpEF) heart failure with preserved ejection fraction Diabetes Hyperlipidemia Hypertension Social History Social History Social History: Former smoker Smoking packs per day: 1 Smoking cigarettes per day: 20.0 Years smoked: 20 Smoking pack-years: 20.00 Smoking status: Former smoker Alcohol intake: never Substance use: never Substance use type: does not use Lack of Transportation: No Lack of Food: Never True Current Housing: I Have Housing Concerned About Future Housing: No Difficulty Paying Gas/Electric Bills: No Difficulty Paying for Meds: No Currently Unemployed: No Education: Master's Degree or Higher Difficulty w/ Childcare or Family Care: No Spiritual care concerns: No Meds Home Medications and Allergies Home Medications ?Medication ?Instructions ?Recorded ?Confirmed ?Type atorvastatin 80 mg tablet 80 mg PO HS 05/11/25 05/11/25 History clopidogrel 75 mg tablet 75 mg PO DAILY 05/11/25 05/11/25 History furosemide 40 mg tablet 80 mg PO BID 05/11/25 05/11/25 History gemfibrozil 600 mg tablet 600 mg PO HS 05/11/25 05/11/25 History losartan 100 mg tablet 100 mg PO DAILY 05/11/25 05/11/25 History metoprolol tartrate 25 mg tablet 25 mg PO BID 05/11/25 05/11/25 History sodium chloride 1,000 mg soluble 3,000 mg PO HS 05/11/25 05/11/25 History tablet tamsulosin 0.4 mg capsule 0.4 mg PO HS 05/11/25 05/11/25 History Allergies Allergy/AdvReac Type Severity Reaction Status Date / Time No Known Allergies Allergy Verified 05/11/25 17:15 Vital Signs Vital Signs - 24 hr 05/11/25 13:28 05/11/25 13:35 05/11/25 15:04 Temperature 98.1 F Pulse Rate 105 H 71 Respiratory Rate 20 20 Blood Pressure 102/61 Pulse Oximetry 100 92 Oxygen Delivery Room Air Room Air 05/11/25 15:12 05/11/25 15:38 Temperature Pulse Rate 78 104 H Respiratory Rate 20 20 Blood Pressure 105/62 Pulse Oximetry 93 Oxygen Delivery Exam Const: General: comfortable and no acute distress Other: , male, nontoxic appearance HENMT: Face/Nose/Sinus: Normal nares present Mouth: Yes dry mucous membranes Eyes: General: appearance normal, both eyes and all related structures Sclera: sclerae normal Pupils: Equal, round and reactive pupils present EOM: EOMs intact bilaterally Resp: Effort & Inspection: normal respiratory effort Other: crackles and diminished in the left lung base. NC in place and tolerating well. Cardio: Rate: regular rate Rhythm: regular rhythm Other: + ectopy, no murmur. GI: Other: Abdomen soft, nondistended, nontender. Normoactive bowel sounds in all quadrants. Skin: General skin exam: normal color and no rashes or lesions noted Wounds: no wounds Neuro: Speech: normal speech Motor exam (neuro): 5/5 motor strength present throughout Sensory Exam: normal sensation Other: A&O x4 Extrem: General: normal to inspection Psych: Mental Status: mental status grossly normal Affect: normal affect Other: Good insight and judgment, pleasant H&P: Results Labs Labs: Short CBC 05/11/25 Range/Units 13:27 WBC 8.1 (4.5-10.0) K/mm3 Hgb 9.8 L (14.0-18.0) g/dL Hct 30.8 L (42.0-52.0) % Plt Count 162 (150-375) k/mm3 BMP 05/11/25 13:27 Sodium 138 Potassium 3.8 Chloride 102 Carbon Dioxide 23 BUN 48 H Creatinine 1.54 H Glucose 155 H Calcium 9.4 Cardiac Enzymes 05/11/25 Range/Units 13:27 Troponin I 0.012 (0.000-0.034) ng/mL Liver Function 05/11/25 Range/Units 13:27 Total Bilirubin 1.2 (0.2-1.3) mg/dL AST 35 (17-59) U/L ALT 22 (6-50) U/L Alkaline Phosphatase 160 H (38-126) U/L Albumin 4.4 (3.5-5.1) g/dL Assessment and Plan Assessment and plan (1) Hypoxia: Code(s): R09.02 - Hypoxemia Status: Acute Assessment and Plan: Patient is satting 100% on room air at rest. However significantly drops into the 70s and 80s with ambulating a short distance, observed by ED provider. Patient's imaging currently concerning for bilateral pneumonia as well as patient's current symptoms (i.e. Shortness of breath, cough, congestion). Patient also has underlying COPD which may be contributing. Start patient on broad-spectrum antibiotics for pneumonia. Will need reassessment of ambulatory O2, may need home O2 eval. (2) Pneumonia: Qualifiers: Laterality: bilateral Lung location: unspecified part of lung Pneumonia type: due to unspecified organism Qualified Code(s): J18.9 - Pneumonia, unspecified organism Code(s): J18.9 - Pneumonia, unspecified organism Status: Acute Assessment and Plan: CXR completed on 05/11 showed bilateral pneumonia. Patient is also experiencing shortness of breath, cough, and congestion. Potentially complicated by underlying COPD/emphysema, no previous diagnosis. - viral PCR negative on 05/11 - started on ceftriaxone and azithromycin on 05/11 - supportive care: Mucinex, Tylenol, Tessalon Perles, DuoNebs april - hypoxia noted with exertion, monitor O2 sats and will need re-evaluation of ambulatory O2 (3) ARLETH (acute kidney injury): Code(s): N17.9 - Acute kidney failure, unspecified Status: Acute Assessment and Plan: Patient was recently seen at [place] ER on 05/01. At that time there was concern for CHF exacerbation given patient's BNP was elevated. However and echo was completed which showed a preserved EF and some mild aortic stenosis. Patient's Lasix was increased from 40 mg b.i.d. to 80 mg b.i.d.. He is currently reporting that he feels dehydrated since the medication change. Upon admission the patient's creatinine was 1.54, BUN 48, GFR 45. No previous lab work available for comparison. Plan to reduce patient's Lasix back to 40 mg b.i.d. and give so transfusion of IV fluids. - reduce patient's Lasix >> 80 mg b.i.d. to 40 mg b.i.d. - started on IV fluids: LR 100 mL/hour x1 L - trend renal function - trend electrolytes, correct as needed (4) COPD (chronic obstructive pulmonary disease): Qualifiers: COPD type: emphysema Emphysema type: unspecified Qualified Code(s): J43.9 - Emphysema, unspecified Code(s): J44.9 - Chronic obstructive pulmonary disease, unspecified Status: Suspected Assessment and Plan: Has hx of smoking - 20 years, 1.5 PPD. Has not previously been diagnosed with emphysema or COPD. No significant respiratory distress or wheezing upon initial exam in the emergency department. However, patient reports improvement in his SOB with nebulizer given in the ED. - Robinson chen - will need pulmonology referral outpatient, last saw 1 years ago for low-dose CT as preventative care due to his history of smoking. would prefer not to go back to who he saw previously at [facility] - no wheezing on exam, hold on steroid course (5) (HFpEF) heart failure with preserved ejection fraction: Qualifiers: Heart failure chronicity: chronic Qualified Code(s): I50.32 - Chronic diastolic (congestive) heart failure Code(s): I50.30 - Unspecified diastolic (congestive) heart failure Status: Chronic Assessment and Plan: Recently seen at [facility] on 05/01. Echo completed at that time, obtain records. Patient currently has ARLETH, high suspicion that this is secondary to his recent up titration of his Lasix (40 mg b.i.d. to 80 mg b.i.d.). Patient appears dry on exam, no concern for pulmonary edema on CXR, and no peripheral edema observed. Currently feeling dry. - reduce Lasix - monitor I&Os - monitor daily weights (6) Diabetes: Qualifiers: Diabetes mellitus complication status: without complication Diabetes mellitus manager long term care insulin use: without manager long term care use Diabetes mellitus type: type 2 Qualified Code(s): E11.9 - Type 2 diabetes mellitus without complications Code(s): E11.9 - Type 2 diabetes mellitus without complications Status: Chronic Assessment and Plan: History of type 2 diabetes. Glucose 155 upon admission on 05/11. - hypoglycemia protocol - POC blood glucose ACHS - not currently on diabetes medications outpatient and has been controlling it with his diet, update A1c - correct regimen ordered - moderate dose TIDWM, based off BMI (7) Hypertension: Qualifiers: Hypertension type: primary hypertension Qualified Code(s): I10 - Essential (primary) hypertension Code(s): I10 - Essential (primary) hypertension Status: Chronic Assessment and Plan: - chronic, currently 105/62. - continue metoprolol. Hold losartan as the patient's pressure is currently on the low end of normotensive, resume when appropriate. - monitor Plan Diet: Heart healthy GI Prophylaxis: N/a DVT Prophylaxis: Lovenox IV fluids: 100 mL/hour x1 L Lines/Tubes: Peripheral IV Code Status: Full code Quality VTE Prophylaxis VTE prophylaxis: pharmacologic ordered Hospitalist MIPS Advance Care Plan I have confirmed that the patient's Advanced Care Plan is present, code status is documented, or surrogate decision maker is listed in patient medical record.: Yes Medication Reconciliation I have utilized all available resources to obtain, update and review the patients current medications (includes all prescriptions, OTC, herbals, cannabis, and nutritional supplements).: Yes
[2025-05-11] MEDS: AZITHROMYCIN IV 500 MG in SODIUM CHLORIDE 0.9% IV 250 ML IVPB (16:21)
--- NOTE | 2025-05-11 16:54 | ADMGEN ---
This patient, Julio Boyd, was admitted to [address] [facility] Surg Room 311-01. Patient/family oriented to hospital policies and general routines including ID bracelet, bed and alarms, visiting hours, pain management, procedures, bathroom and other care routines, personal items, smoking policy, room service/diet, and visiting hours. Information on how to activate the Rapid Response Team has been discussed. Patient/Family are encouraged to report perceived risks to care and to ask questions if they do not understand what they are told or what they should do.
[2025-05-11] MEDS: LACTATED RINGERS 1,000 ML 100 ML IV CONT (17:37)
[2025-05-11] MEDS: TAMSULOSIN HCL 0.4 MG CAPSULE PO (20:03)
[2025-05-11] MEDS: METOPROLOL TARTRATE 25 MG TABLET PO (20:03)
[2025-05-11] MEDS: SODIUM CHLORIDE 1 GM TABLET 3 GM PO (20:03)
[2025-05-11] MEDS: ATORVASTATIN 40 MG TABLET 80 MG PO (20:03)
[2025-05-12] VITALS (16 sets, daily range): BP systolic 111–119; BP diastolic 41–54; PULSE 76–104; RESP 16–22; TEMP 35.9–36.9; O2SAT 90–97
[2025-05-12] MEDS: IPRATROPIUM 0.5 MG/ALBUTEROL SULFATE 2.5 MG (BASE) AMPUL.NEB 3 ML INHALATION ×4 (02:20→20:29)
[2025-05-12 05:58] LABS: Hematocrit 26.9 % (42.0-52.0); Hemoglobin 8.3 g/dL (14.0-18.0); Immature Granulocyte Percent A 1.0 % (0-0.5); Lymphocytes Absolute Auto 0.76 K/mm3 (0.9-3.2); Mean Corpuscular HGB Conc 30.9 g/dl (32-36); Mean Corpuscular Hemoglobin 35.3 pg (26-34); Mean Corpuscular Volume 114.5 fl (80-100); Nucleated Red Blood Cells Absolute Auto 0.000 K/mm3 (0.0-0.012); Nucleated Red Blood Cells Perc 0.0 % (0.0-0.2); Platelet Count Result 150 k/mm3 (150-375); Red Blood Count 2.35 M/mm3 (4.6-6.20); White Blood Count 6.7 K/mm3 (4.5-10.0)
[2025-05-12 06:11] LABS: Hemoglobin A1C 5.9 % (<5.7)
[2025-05-12 06:22] LABS: Anion Gap 11 mmol/L (4-12); Blood Urea Nitrogen 47 mg/dL (9-20); Calcium 8.7 mg/dL (8.4-10.2); Carbon Dioxide 24 mmol/L (22-30); Chloride 101 mmol/L (98-107); Estimated CRCL calculation 47 ml/min; Estimated Glomerular Filt Rate 49; Glucose 178 mg/dL (65-110); Potassium 3.3 mmol/L (3.4-5.0); Sodium 136 mmol/L (137-145)
[2025-05-12 06:42] LABS: Burr Cells 1+; Macrocytosis 1+ (NORMAL); Schistocytes None Seen
[2025-05-12] MEDS: CLOPIDOGREL BISULFATE 75 MG TABLET PO (08:18)
[2025-05-12] MEDS: FUROSEMIDE 40 MG TABLET PO ×2 (08:18→18:04)
[2025-05-12] MEDS: METOPROLOL TARTRATE 25 MG TABLET PO ×2 (08:18→21:21)
[2025-05-12] MEDS: cefTRIAXone 1 GM in SODIUM CHLORIDE 0.9% IV 50 ML 100 ML IVPB (08:21)
[2025-05-12] MEDS: ENOXAPARIN 40 MG/0.4 ML SYRINGE SUB-Q (08:33)
[2025-05-12] MEDS: AZITHROMYCIN IV 500 MG in SODIUM CHLORIDE 0.9% IV 250 ML IVPB (09:19)
[2025-05-12] MEDS: INSULIN ASPART (*BKC) 100 UNITS/ML SUB-Q (11:38)
--- NOTE | 2025-05-12 16:38 | PM.IMPN ---
Progress Note: A&P Assessment and Plan (1) Hypoxia: Code(s): R09.02 - Hypoxemia Status: Acute Assessment and Plan: Patient is satting 100% on room air at rest. However significantly drops into the 70s and 80s with ambulating a short distance, observed by ED provider. Patient's imaging currently concerning for bilateral pneumonia as well as patient's current symptoms (i.e. Shortness of breath, cough, congestion). Patient also has underlying COPD which may be contributing. Start patient on broad-spectrum antibiotics for pneumonia. Will need reassessment of ambulatory O2, may need home O2 eval. (2) Pneumonia: Qualifiers: Pneumonia type: due to unspecified organism Laterality: bilateral Lung location: unspecified part of lung Qualified Code(s): J18.9 - Pneumonia, unspecified organism Code(s): J18.9 - Pneumonia, unspecified organism Status: Acute Assessment and Plan: CXR completed on 05/11 showed bilateral pneumonia. Patient is also experiencing shortness of breath, cough, and congestion. Potentially complicated by underlying COPD/emphysema, no previous diagnosis. - viral PCR negative on 05/11 - started on ceftriaxone and azithromycin on 05/11 - supportive care: Mucinex, Tylenol, Tessalon Perles, DuoNebs april - hypoxia noted with exertion, monitor O2 sats and will need re-evaluation of ambulatory O2 (3) ARLETH (acute kidney injury): Code(s): N17.9 - Acute kidney failure, unspecified Status: Acute Assessment and Plan: Patient was recently seen at [place] [facility] on 05/01. At that time there was concern for CHF exacerbation given patient's BNP was elevated. However and echo was completed which showed a preserved EF and some mild aortic stenosis. Patient's Lasix was increased from 40 mg b.i.d. to 80 mg b.i.d.. He is currently reporting that he feels dehydrated since the medication change. Upon admission the patient's creatinine was 1.54, BUN 48, GFR 45. No previous lab work available for comparison. Plan to reduce patient's Lasix back to 40 mg b.i.d. and give so transfusion of IV fluids. - reduce patient's Lasix >> 80 mg b.i.d. to 40 mg b.i.d. - started on IV fluids: LR 100 mL/hour x1 L - trend renal function - trend electrolytes, correct as needed (4) COPD (chronic obstructive pulmonary disease): Qualifiers: COPD type: emphysema Emphysema type: unspecified Qualified Code(s): J43.9 - Emphysema, unspecified Code(s): J44.9 - Chronic obstructive pulmonary disease, unspecified Status: Suspected Assessment and Plan: Has hx of smoking - 20 years, 1.5 PPD. Has not previously been diagnosed with emphysema or COPD. No significant respiratory distress or wheezing upon initial exam in the emergency department. However, patient reports improvement in his SOB with nebulizer given in the ED. - Robinson chen - will need pulmonology referral outpatient, last saw 1 years ago for low-dose CT as preventative care due to his history of smoking. would prefer not to go back to who he saw previously at [facility] - no wheezing on exam, hold on steroid course (5) (HFpEF) heart failure with preserved ejection fraction: Qualifiers: Heart failure chronicity: chronic Qualified Code(s): I50.32 - Chronic diastolic (congestive) heart failure Code(s): I50.30 - Unspecified diastolic (congestive) heart failure Status: Chronic Assessment and Plan: Recently seen at [facility] on 05/01. Echo completed at that time, obtain records. Patient currently has ARLETH, high suspicion that this is secondary to his recent up titration of his Lasix (40 mg b.i.d. to 80 mg b.i.d.). Patient appears dry on exam, no concern for pulmonary edema on CXR, and no peripheral edema observed. Currently feeling dry. - reduce Lasix - monitor I&Os - monitor daily weights (6) Diabetes: Qualifiers: Diabetes mellitus type: type 2 Diabetes mellitus technician terminal and repeater insulin use: without technician terminal and repeater use Diabetes mellitus complication status: without complication Qualified Code(s): E11.9 - Type 2 diabetes mellitus without complications Code(s): E11.9 - Type 2 diabetes mellitus without complications Status: Chronic Assessment and Plan: History of type 2 diabetes. Glucose 155 upon admission on 05/11. - hypoglycemia protocol - POC blood glucose ACHS - not currently on diabetes medications outpatient and has been controlling it with his diet, update A1c - correct regimen ordered - moderate dose TIDWM, based off BMI (7) Hypertension: Qualifiers: Hypertension type: primary hypertension Qualified Code(s): I10 - Essential (primary) hypertension Code(s): I10 - Essential (primary) hypertension Status: Chronic Assessment and Plan: - chronic, currently 105/62. - continue metoprolol. Hold losartan as the patient's pressure is currently on the low end of normotensive, resume when appropriate. - monitor Plan patient presented with shortness of breath with history of smoking in the past is found to have pneumonia most likely CAP being treated with ceftriaxone and Zithromax, patient also has history of COPD and treated with Duo neb which patient stats his helping, will monitor, and will have PT/OT evaluate the patient, further recommendation to follow. Diet: Heart healthy GI Prophylaxis: N/a DVT Prophylaxis: Lovenox IV fluids: 100 mL/hour x1 L Lines/Tubes: Peripheral IV Code Status: Full code Subjective Date/time seen: 05/12/25 16:38 Interval history: Shortness of Breath H&P-Narrative: 70 y/o M with PMH of HFpEF, COPD, former smoker, mild aortic stenosis, diabetes, hyperlipidemia, and hypertension presents here with shortness of breath. The patient presents here from home on 05/11 for further evaluation of shortness of breath. He reports the shortness of breath has been ongoing for the past couple of weeks. Worsens with exertion and at night. He was initially evaluated at [place] [facility] on 05/01/2025. At that time he underwent a CTA which was negative for PE. Patient had an elevated BNP around 800 at that time, echo was completed which showed ejection fraction of 65-70% and some mild aortic stenosis. He was previously on Lasix 40 mg b.i.d. which was subsequently increased to 80 mg b.i.d.. He reports he has been currently feeling dehydrated since the medication change and he has had no change in his current shortness of breath. He reports an accompanying dry cough, congestion, chills, and feeling warm. He denies associated nausea, vomiting, chest pain, diarrhea, abdominal pain, melena or hematochezia. Upon initial evaluation in the emergency department the patient was 100% on room air at rest. Patient was later ambulated by the ED physician and his oxygen dropped to 84% on room air with only a short distance. Initial VS at presentation: 98.1? F, HR 105, RR 20, 102/61, 100% on RA. ED workup showed: WBC 8.1, hemoglobin 9.8 (no previous available for comparison), INR 1.2, no significant electrolyte derangements, creatinine 1.54 and GFR 45 (no previous for comparison), glucose 155, BNP 778 (normal for age), and initial troponin 0.012. Viral PCR negative. CXR showed bilateral pneumonia. EKG showed sinus rhythm with first-degree AV block, incomplete right bundle branch block, delayed precordial R/S transition, low QRS voltage in precordial leads, inferior infarct age indeterminate. patient presented with shortness of breath with history of smoking in the past is found to have pneumonia most likely CAP being treated with ceftriaxone and Zithromax, patient also has history of COPD and treated with Duo neb which patient stats his helping, will monitor, and will have PT/OT evaluate the patient, further recommendation to follow. Review of Systems Review of Systems: All systems reviewed & are unremarkable except as noted in HPI and below Exam Narrative: Patient is comfortable, NAD HEENT: eyes are clear and none icteric LUNGS:CTA HEART: RR S1S2 ABD: BS+, Soft and nontender Lower extremities: no edema SKIN: nonjaundiced Neuro: grossly intact. Objective Data Vital Signs Vital Signs: Vital Signs - 24 hr 05/11/25 17:30 05/11/25 18:06 05/11/25 19:55 Temperature 37.1 C Pulse Rate 105 H 107 H Respiratory Rate 18 16 Blood Pressure 127/50 L 97/54 L Pulse Oximetry 92 95 97 Oxygen Delivery Nasal Cannula Oxygen Flow Rate 2 05/11/25 20:00 05/11/25 20:03 05/11/25 20:11 Temperature Pulse Rate 80 105 H 77 Respiratory Rate 20 20 Blood Pressure Pulse Oximetry 95 Oxygen Delivery Nasal Cannula Oxygen Flow Rate 2 05/11/25 20:22 05/11/25 20:22 05/12/25 02:20 Temperature Pulse Rate 80 76 Respiratory Rate 20 20 Blood Pressure Pulse Oximetry 95 Oxygen Delivery Nasal Cannula Oxygen Flow Rate 2 05/12/25 02:30 05/12/25 04:57 05/12/25 07:55 Temperature 36.9 C Pulse Rate 80 92 Respiratory Rate 20 16 Blood Pressure 111/41 L Pulse Oximetry 95 93 Oxygen Delivery Nasal Cannula Oxygen Flow Rate 2 05/12/25 07:55 05/12/25 08:01 05/12/25 08:18 Temperature Pulse Rate 92 94 94 Respiratory Rate 20 20 Blood Pressure Pulse Oximetry Oxygen Delivery Oxygen Flow Rate 05/12/25 08:30 05/12/25 10:04 05/12/25 11:41 Temperature Pulse Rate Respiratory Rate Blood Pressure Pulse Oximetry 93 Oxygen Delivery Nasal Cannula Nasal Cannula Nasal Cannula Oxygen Flow Rate 2 2 2 05/12/25 14:00 05/12/25 14:56 05/12/25 15:02 Temperature 35.9 C L Pulse Rate 95 93 96 Respiratory Rate 22 H 20 20 Blood Pressure 118/48 L Pulse Oximetry 93 Oxygen Delivery Oxygen Flow Rate Intake/Output Intake/Output: Intake & Output 05/09/25 05/10/25 05/11/25 05/12/25 23:59 23:59 23:59 23:59 Intake Total 410 1490 Balance 410 1490 Meds/Results Medications: Active Medications Generic Name Dose Route Start Last Admin Trade Name Freq PRN Reason Stop Dose Admin Acetaminophen 650 mg 05/11/25 16:21 Acetaminophen 325 Mg Tablet PO Q4H PRN Mild Pain (1-3) or Fever Hydrocodone Bitart/Acetaminophen 1 tab 05/11/25 16:21 Hydrocodone/Acetaminophen (*Crx) 5-325 Mg Tablet PO Q4H PRN Moderate Pain (4-6) Albuterol/Ipratropium 3 ml 05/11/25 20:00 05/12/25 14:55 Ipratropium 0.5 Mg/Albuterol Sulfate 2.5 Mg (Base) Ampul.Neb 3 Ml INHALATION 3 ml Q6HRT APRIL Administration Atorvastatin Calcium 80 mg 05/11/25 21:00 05/11/25 20:03 Atorvastatin 40 Mg Tablet PO 80 mg HS APRIL Administration Bisacodyl 5 mg 05/11/25 16:21 Bisacodyl 5 Mg Tablet Ec PO DAILY PRN Constipation Clopidogrel Bisulfate 75 mg 05/12/25 09:00 05/12/25 08:18 Clopidogrel Bisulfate 75 Mg Tablet PO 75 mg DAILY APRIL Administration Dextrose 12.5 gm 05/11/25 16:22 Dextrose 50% 25 Gm/50 Ml Syringe IV PUSH PRN PRN Hypoglycemia Protocol Enoxaparin Sodium 40 mg 05/12/25 09:00 05/12/25 08:33 Enoxaparin 40 Mg/0.4 Ml Syringe SUB-Q 40 mg DAILY APRIL Administration Furosemide 40 mg 05/12/25 09:00 05/12/25 08:18 Furosemide 40 Mg Tablet PO 40 mg BID APRIL Administration Gemfibrozil 600 mg 05/11/25 21:00 05/11/25 20:04 Gemfibrozil 600 Mg Tablet PO Not Given HS APRIL Glucagon 1 mg 05/11/25 16:22 Glucagon For Inj 1 Mg Vial IM PRN PRN Hypoglycemia Protocol Glucose 15 gm 05/11/25 16:22 Glucose Oral Gel 15 Gm Of Glucse In 37.5 Gm Tube PO PRN PRN Hypoglycemia Protocol Ceftriaxone Sodium 1 gm/ 50 mls @ 100 mls/hr 05/12/25 09:00 05/12/25 08:21 Sodium Chloride IVPB 100 mls/hr QAM APRIL Administration Azithromycin 500 mg/ Sodium 250 mls @ 250 mls/hr 05/12/25 09:00 05/12/25 09:19 Chloride IVPB 05/15/25 09:59 250 mls/hr QAM APRIL Administration Dextrose 1,000 mls @ 100 mls/hr 05/11/25 16:22 Dextrose 5% 1,000 Ml IVPB PRN PRN Hypoglycemia Protocol Insulin Aspart 3 - 6 units 05/11/25 17:00 05/12/25 11:38 Insulin Aspart (*Bkc) 100 Units/Ml SUB-Q 3 units TIDWM APRIL Administration Protocol Metoprolol Tartrate 25 mg 05/11/25 21:00 05/12/25 08:18 Metoprolol Tartrate 25 Mg Tablet PO 25 mg Q12HR APRIL Administration Ondansetron HCl 4 mg 05/11/25 16:21 Ondansetron Hcl Odt 4 Mg Tablet PO Q6H PRN Nausea And Vomiting Sodium Chloride 3 gm 05/11/25 21:00 05/11/25 20:03 Sodium Chloride 1 Gm Tablet PO 3 gm HS APRIL Administration Tamsulosin HCl 0.4 mg 05/11/25 21:00 05/11/25 20:03 Tamsulosin Hcl 0.4 Mg Capsule PO 0.4 mg HS APRIL Administration Radiology Results: ITS Impressions Chest X-Ray 05/11/25 14:34 Impression: Bilateral pneumonia Labs Labs: Laboratory Results - last 24 hr 05/11/25 05/11/25 05/12/25 17:26 19:50 05:09 WBC 6.7 RBC 2.35 L Hgb 8.3 L Hct 26.9 L MCV 114.5 H MCH 35.3 H MCHC 30.9 L RDW 15.4 H Plt Count 150 MPV 10.0 Immature Gran % (Auto) 1.0 H Neut % (Auto) 73.1 Lymph % (Auto) 11.3 L [place] % (Auto) 13.1 H Eos % (Auto) 1.2 Baso % (Auto) 0.3 Lymph # (Auto) 0.76 L [place] # (Auto) 0.9 H Eos # (Auto) 0.1 Baso # (Auto) 0.0 Abs Immat Gran (auto) 0.07 H Absolute Neuts (auto) 4.9 Absolute Nucleated RBC 0.000 Band Neutrophils % Not Reportable Nucleated RBC % 0.0 Platelet Estimate Adequate Macrocytosis 1+ [place] Cells 1+ Schistocytes None seen Sodium 136 L Potassium 3.3 L Chloride 101 Carbon Dioxide 24 Anion Gap 11 BUN 47 H Creatinine 1.42 H Estim Creat Clear Calc 47 Estimated GFR 49 L Glucose 178 H POC Capillary Glucose 130 H 260 H Hemoglobin A1c 5.9 H Calcium 8.7 05/12/25 05/12/25 07:31 11:17 WBC RBC Hgb Hct MCV MCH MCHC RDW Plt Count MPV Immature Gran % (Auto) Neut % (Auto) Lymph % (Auto) [place] % (Auto) Eos % (Auto) Baso % (Auto) Lymph # (Auto) [place] # (Auto) Eos # (Auto) Baso # (Auto) Abs Immat Gran (auto) Absolute Neuts (auto) Absolute Nucleated RBC Band Neutrophils % Nucleated RBC % Platelet Estimate Macrocytosis [place] Cells Schistocytes Sodium Potassium Chloride Carbon Dioxide Anion Gap BUN Creatinine Estim Creat Clear Calc Estimated GFR Glucose POC Capillary Glucose 123 H 218 H Hemoglobin A1c Calcium Quality VTE Prophylaxis VTE prophylaxis: pharmacologic ordered
[2025-05-12] MEDS: ATORVASTATIN 40 MG TABLET 80 MG PO (21:20)
[2025-05-12] MEDS: TAMSULOSIN HCL 0.4 MG CAPSULE PO (21:21)
[2025-05-12] MEDS: SODIUM CHLORIDE 1 GM TABLET 3 GM PO (21:22)
[2025-05-13] VITALS (15 sets, daily range): BP systolic 114–132; BP diastolic 56–71; PULSE 78–108; RESP 18–20; TEMP 36.2–36.4; O2SAT 90–97
[2025-05-13] MEDS: IPRATROPIUM 0.5 MG/ALBUTEROL SULFATE 2.5 MG (BASE) AMPUL.NEB 3 ML INHALATION ×4 (01:51→20:21)
[2025-05-13 08:07] LABS: Hematocrit 27.4 % (42.0-52.0); Hemoglobin 8.5 g/dL (14.0-18.0); Mean Corpuscular HGB Conc 31.0 g/dl (32-36); Mean Corpuscular Hemoglobin 35.3 pg (26-34); Mean Corpuscular Volume 113.7 fl (80-100); Platelet Count Result 153 k/mm3 (150-375); Red Blood Count 2.41 M/mm3 (4.6-6.20); White Blood Count 6.2 K/mm3 (4.5-10.0)
[2025-05-13 08:33] LABS: Anion Gap 11 mmol/L (4-12); Blood Urea Nitrogen 39 mg/dL (9-20); Calcium 9.3 mg/dL (8.4-10.2); Carbon Dioxide 25 mmol/L (22-30); Chloride 100 mmol/L (98-107); Estimated CRCL calculation 60 ml/min; Estimated Glomerular Filt Rate > 60; Glucose 162 mg/dL (65-110); Magnesium 1.5 mg/dL (1.6-2.3); Potassium 4.0 mmol/L (3.4-5.0); Sodium 136 mmol/L (137-145)
[2025-05-13] MEDS: ENOXAPARIN 40 MG/0.4 ML SYRINGE SUB-Q (09:43)
[2025-05-13] MEDS: METOPROLOL TARTRATE 25 MG TABLET PO ×2 (09:44→20:43)
[2025-05-13] MEDS: CLOPIDOGREL BISULFATE 75 MG TABLET PO (09:44)
[2025-05-13] MEDS: FUROSEMIDE 40 MG TABLET PO ×2 (09:44→16:40)
[2025-05-13] MEDS: cefTRIAXone 1 GM in SODIUM CHLORIDE 0.9% IV 50 ML 100 ML IVPB (09:44)
[2025-05-13] MEDS: AZITHROMYCIN IV 500 MG in SODIUM CHLORIDE 0.9% IV 250 ML IVPB (09:48)
[2025-05-13] MEDS: INSULIN ASPART (*BKC) 100 UNITS/ML SUB-Q (12:25)
--- NOTE | 2025-05-13 13:01 | PM.IMPN ---
Progress Note: A&P Assessment and Plan (1) Hypoxia: Code(s): R09.02 - Hypoxemia Status: Acute Assessment and Plan: Patient is satting 100% on room air at rest. However significantly drops into the 70s and 80s with ambulating a short distance, observed by ED provider. Patient's imaging currently concerning for bilateral pneumonia as well as patient's current symptoms (i.e. Shortness of breath, cough, congestion). Patient also has underlying COPD which may be contributing. Start patient on broad-spectrum antibiotics for pneumonia. Will need reassessment of ambulatory O2, may need home O2 eval. (2) Pneumonia: Qualifiers: Pneumonia type: due to unspecified organism Laterality: bilateral Lung location: unspecified part of lung Qualified Code(s): J18.9 - Pneumonia, unspecified organism Code(s): J18.9 - Pneumonia, unspecified organism Status: Acute Assessment and Plan: CXR completed on 05/11 showed bilateral pneumonia. Patient is also experiencing shortness of breath, cough, and congestion. Potentially complicated by underlying COPD/emphysema, no previous diagnosis. - viral PCR negative on 05/11 - started on ceftriaxone and azithromycin on 05/11 - supportive care: Mucinex, Tylenol, Tessalon Perles, DuoNebs april - hypoxia noted with exertion, monitor O2 sats and will need re-evaluation of ambulatory O2 (3) ARLETH (acute kidney injury): Code(s): N17.9 - Acute kidney failure, unspecified Status: Acute Assessment and Plan: Patient was recently seen at [facility] on 05/01. At that time there was concern for CHF exacerbation given patient's BNP was elevated. However and echo was completed which showed a preserved EF and some mild aortic stenosis. Patient's Lasix was increased from 40 mg b.i.d. to 80 mg b.i.d.. He is currently reporting that he feels dehydrated since the medication change. Upon admission the patient's creatinine was 1.54, BUN 48, GFR 45. No previous lab work available for comparison. Plan to reduce patient's Lasix back to 40 mg b.i.d. and give so transfusion of IV fluids. - reduce patient's Lasix >> 80 mg b.i.d. to 40 mg b.i.d. - started on IV fluids: LR 100 mL/hour x1 L - trend renal function - trend electrolytes, correct as needed (4) COPD (chronic obstructive pulmonary disease): Qualifiers: COPD type: emphysema Emphysema type: unspecified Qualified Code(s): J43.9 - Emphysema, unspecified Code(s): J44.9 - Chronic obstructive pulmonary disease, unspecified Status: Suspected Assessment and Plan: Has hx of smoking - 20 years, 1.5 PPD. Has not previously been diagnosed with emphysema or COPD. No significant respiratory distress or wheezing upon initial exam in the emergency department. However, patient reports improvement in his SOB with nebulizer given in the ED. - Robinson chen - will need pulmonology referral outpatient, last saw 1 years ago for low-dose CT as preventative care due to his history of smoking. would prefer not to go back to who he saw previously at [facility] - no wheezing on exam, hold on steroid course (5) (HFpEF) heart failure with preserved ejection fraction: Qualifiers: Heart failure chronicity: chronic Qualified Code(s): I50.32 - Chronic diastolic (congestive) heart failure Code(s): I50.30 - Unspecified diastolic (congestive) heart failure Status: Chronic Assessment and Plan: Recently seen at [facility] on 05/01. Echo completed at that time, obtain records. Patient currently has ARLETH, high suspicion that this is secondary to his recent up titration of his Lasix (40 mg b.i.d. to 80 mg b.i.d.). Patient appears dry on exam, no concern for pulmonary edema on CXR, and no peripheral edema observed. Currently feeling dry. - reduce Lasix - monitor I&Os - monitor daily weights (6) Diabetes: Qualifiers: Diabetes mellitus type: type 2 Diabetes mellitus terminal worker insulin use: without terminal worker use Diabetes mellitus complication status: without complication Qualified Code(s): E11.9 - Type 2 diabetes mellitus without complications Code(s): E11.9 - Type 2 diabetes mellitus without complications Status: Chronic Assessment and Plan: History of type 2 diabetes. Glucose 155 upon admission on 05/11. - hypoglycemia protocol - POC blood glucose ACHS - not currently on diabetes medications outpatient and has been controlling it with his diet, update A1c - correct regimen ordered - moderate dose TIDWM, based off BMI (7) Hypertension: Qualifiers: Hypertension type: primary hypertension Qualified Code(s): I10 - Essential (primary) hypertension Code(s): I10 - Essential (primary) hypertension Status: Chronic Assessment and Plan: - chronic, currently 105/62. - continue metoprolol. Hold losartan as the patient's pressure is currently on the low end of normotensive, resume when appropriate. - monitor Plan patient presented with shortness of breath with history of smoking in the past is found to have pneumonia most likely CAP being treated with ceftriaxone and Zithromax, patient also has history of COPD and treated with Duo neb which patient stats his helping, will monitor, and will have PT/OT evaluate the patient, further recommendation to follow. Patient will b/l pneumonia, stats he is feeling much better compared to when he arrived, stats he is able to breath better, denies any fever or chills, he is requiring oxygen, will do home oxygen evaluation before discharging patient home. will continue to monitor. Diet: Heart healthy GI Prophylaxis: N/a DVT Prophylaxis: Lovenox IV fluids: 100 mL/hour x1 L Lines/Tubes: Peripheral IV Code Status: Full code Subjective Date/time seen: 05/13/25 13:01 Interval history: Shortness of Breath H&P-Narrative: 70 y/o M with PMH of HFpEF, COPD, former smoker, mild aortic stenosis, diabetes, hyperlipidemia, and hypertension presents here with shortness of breath. The patient presents here from home on 05/11 for further evaluation of shortness of breath. He reports the shortness of breath has been ongoing for the past couple of weeks. Worsens with exertion and at night. He was initially evaluated at [facility] on 05/01/2025. At that time he underwent a CTA which was negative for PE. Patient had an elevated BNP around 800 at that time, echo was completed which showed ejection fraction of 65-70% and some mild aortic stenosis. He was previously on Lasix 40 mg b.i.d. which was subsequently increased to 80 mg b.i.d.. He reports he has been currently feeling dehydrated since the medication change and he has had no change in his current shortness of breath. He reports an accompanying dry cough, congestion, chills, and feeling warm. He denies associated nausea, vomiting, chest pain, diarrhea, abdominal pain, melena or hematochezia. Upon initial evaluation in the emergency department the patient was 100% on room air at rest. Patient was later ambulated by the ED physician and his oxygen dropped to 84% on room air with only a short distance. Initial VS at presentation: 98.1? F, HR 105, RR 20, 102/61, 100% on RA. ED workup showed: WBC 8.1, hemoglobin 9.8 (no previous available for comparison), INR 1.2, no significant electrolyte derangements, creatinine 1.54 and GFR 45 (no previous for comparison), glucose 155, BNP 778 (normal for age), and initial troponin 0.012. Viral PCR negative. CXR showed bilateral pneumonia. EKG showed sinus rhythm with first-degree AV block, incomplete right bundle branch block, delayed precordial R/S transition, low QRS voltage in precordial leads, inferior infarct age indeterminate. patient presented with shortness of breath with history of smoking in the past is found to have pneumonia most likely CAP being treated with ceftriaxone and Zithromax, patient also has history of COPD and treated with Duo neb which patient stats his helping, will monitor, and will have PT/OT evaluate the patient, further recommendation to follow. Patient will b/l pneumonia, stats he is feeling much better compared to when he arrived, stats he is able to breath better, denies any fever or chills, he is requiring oxygen, will do home oxygen evaluation before discharging patient home. will continue to monitor. Review of Systems Review of Systems: All systems reviewed & are unremarkable except as noted in HPI and below Exam Narrative: Patient is comfortable, NAD HEENT: eyes are clear and none icteric LUNGS:CTA HEART: RR S1S2 ABD: BS+, Soft and nontender Lower extremities: no edema SKIN: nonjaundiced Neuro: grossly intact. Objective Data Vital Signs Vital Signs: Vital Signs - 24 hr 05/12/25 14:00 05/12/25 14:56 05/12/25 15:02 Temperature 35.9 C L Pulse Rate 95 93 96 Respiratory Rate 22 H 20 20 Blood Pressure 118/48 L Pulse Oximetry 93 Oxygen Delivery Oxygen Flow Rate Fraction of Inspired Oxygen 05/12/25 20:00 05/12/25 20:26 05/12/25 20:29 Temperature 36.2 C L Pulse Rate 104 H 90 Respiratory Rate 18 20 Blood Pressure 119/54 L Pulse Oximetry 93 97 Oxygen Delivery Nasal Cannula Oxygen Flow Rate 2 Fraction of Inspired Oxygen 05/12/25 20:33 05/12/25 20:38 05/12/25 21:21 Temperature Pulse Rate 90 94 104 H Respiratory Rate 20 20 Blood Pressure Pulse Oximetry 90 Oxygen Delivery Nasal Cannula Oxygen Flow Rate 2 Fraction of Inspired Oxygen 05/13/25 01:52 05/13/25 02:01 05/13/25 05:30 Temperature 36.2 C L Pulse Rate 98 101 H 91 Respiratory Rate 20 20 18 Blood Pressure 132/71 Pulse Oximetry 97 Oxygen Delivery Oxygen Flow Rate Fraction of Inspired Oxygen 05/13/25 08:25 05/13/25 08:27 05/13/25 08:31 Temperature Pulse Rate 97 99 Respiratory Rate 20 20 Blood Pressure Pulse Oximetry 90 Oxygen Delivery Nasal Cannula Oxygen Flow Rate 2 Fraction of Inspired Oxygen 05/13/25 09:44 Temperature Pulse Rate 78 Respiratory Rate Blood Pressure Pulse Oximetry Oxygen Delivery Oxygen Flow Rate Fraction of Inspired Oxygen Intake/Output Intake/Output: Intake & Output 05/10/25 05/11/25 05/12/25 05/13/25 23:59 23:59 23:59 23:59 Intake Total 410 2530 480 Balance 410 2530 480 Meds/Results Medications: Active Medications Generic Name Dose Route Start Last Admin Trade Name Freq PRN Reason Stop Dose Admin Acetaminophen 650 mg 05/11/25 16:21 Acetaminophen 325 Mg Tablet PO Q4H PRN Mild Pain (1-3) or Fever Hydrocodone Bitart/Acetaminophen 1 tab 05/11/25 16:21 Hydrocodone/Acetaminophen (*Crx) 5-325 Mg Tablet PO Q4H PRN Moderate Pain (4-6) Albuterol/Ipratropium 3 ml 05/11/25 20:00 05/13/25 08:23 Ipratropium 0.5 Mg/Albuterol Sulfate 2.5 Mg (Base) Ampul.Neb 3 Ml INHALATION 3 ml Q6HRT APRIL Administration Atorvastatin Calcium 80 mg 05/11/25 21:00 05/12/25 21:20 Atorvastatin 40 Mg Tablet PO 80 mg HS APRIL Administration Bisacodyl 5 mg 05/11/25 16:21 Bisacodyl 5 Mg Tablet Ec PO DAILY PRN Constipation Clopidogrel Bisulfate 75 mg 05/12/25 09:00 05/13/25 09:44 Clopidogrel Bisulfate 75 Mg Tablet PO 75 mg DAILY APRIL Administration Dextrose 12.5 gm 05/11/25 16:22 Dextrose 50% 25 Gm/50 Ml Syringe IV PUSH PRN PRN Hypoglycemia Protocol Enoxaparin Sodium 40 mg 05/12/25 09:00 05/13/25 09:43 Enoxaparin 40 Mg/0.4 Ml Syringe SUB-Q 40 mg DAILY APRIL Administration Furosemide 40 mg 05/12/25 09:00 05/13/25 09:44 Furosemide 40 Mg Tablet PO 40 mg BID APRIL Administration Gemfibrozil 600 mg 05/11/25 21:00 05/12/25 21:22 Gemfibrozil 600 Mg Tablet PO 600 mg HS APRIL Administration Glucagon 1 mg 05/11/25 16:22 Glucagon For Inj 1 Mg Vial IM PRN PRN Hypoglycemia Protocol Glucose 15 gm 05/11/25 16:22 Glucose Oral Gel 15 Gm Of Glucse In 37.5 Gm Tube PO PRN PRN Hypoglycemia Protocol Ceftriaxone Sodium 1 gm/ 50 mls @ 100 mls/hr 05/12/25 09:00 05/13/25 09:44 Sodium Chloride IVPB 100 mls/hr QAM APRIL Administration Azithromycin 500 mg/ Sodium 250 mls @ 250 mls/hr 05/12/25 09:00 05/13/25 09:48 Chloride IVPB 05/15/25 09:59 250 mls/hr QAM APRIL Administration Dextrose 1,000 mls @ 100 mls/hr 05/11/25 16:22 Dextrose 5% 1,000 Ml IVPB PRN PRN Hypoglycemia Protocol Insulin Aspart 3 - 6 units 05/11/25 17:00 05/13/25 12:25 Insulin Aspart (*Bkc) 100 Units/Ml SUB-Q 5 units TIDWM APRIL Administration Protocol Metoprolol Tartrate 25 mg 05/11/25 21:00 05/13/25 09:44 Metoprolol Tartrate 25 Mg Tablet PO 25 mg Q12HR APRIL Administration Ondansetron HCl 4 mg 05/11/25 16:21 Ondansetron Hcl Odt 4 Mg Tablet PO Q6H PRN Nausea And Vomiting Sodium Chloride 3 gm 05/11/25 21:00 05/12/25 21:22 Sodium Chloride 1 Gm Tablet PO 3 gm HS APRIL Administration Tamsulosin HCl 0.4 mg 05/11/25 21:00 05/12/25 21:21 Tamsulosin Hcl 0.4 Mg Capsule PO 0.4 mg HS APRIL Administration Radiology Results: ITS Impressions Chest X-Ray 05/11/25 14:34 Impression: Bilateral pneumonia Labs Labs: Laboratory Results - last 24 hr 05/12/25 05/12/25 05/13/25 16:41 20:28 07:29 WBC RBC Hgb Hct MCV MCH MCHC RDW Plt Count MPV Sodium Potassium Chloride Carbon Dioxide Anion Gap BUN Creatinine Estim Creat Clear Calc Estimated GFR Glucose POC Capillary Glucose 131 H 228 H 160 H Calcium Magnesium 05/13/25 05/13/25 08:00 11:31 WBC 6.2 RBC 2.41 L Hgb 8.5 L Hct 27.4 L MCV 113.7 H MCH 35.3 H MCHC 31.0 L RDW 15.2 H Plt Count 153 MPV 9.8 Sodium 136 L Potassium 4.0 Chloride 100 Carbon Dioxide 25 Anion Gap 11 BUN 39 H Creatinine 1.10 Estim Creat Clear Calc 60 Estimated GFR > 60 Glucose 162 H POC Capillary Glucose 326 H Calcium 9.3 Magnesium 1.5 L Quality VTE Prophylaxis VTE prophylaxis: pharmacologic ordered
[2025-05-13] MEDS: ATORVASTATIN 40 MG TABLET 80 MG PO (20:40)
[2025-05-13] MEDS: TAMSULOSIN HCL 0.4 MG CAPSULE PO (20:41)
[2025-05-13] MEDS: SODIUM CHLORIDE 1 GM TABLET 3 GM PO (20:42)
[2025-05-14] VITALS (19 sets, daily range): BP systolic 131–138; BP diastolic 52–62; PULSE 85–108; RESP 18–20; TEMP 36.1–36.4; O2SAT 86–97
[2025-05-14] MEDS: IPRATROPIUM 0.5 MG/ALBUTEROL SULFATE 2.5 MG (BASE) AMPUL.NEB 3 ML INHALATION ×4 (01:51→19:58)
[2025-05-14 05:48] LABS: Hematocrit 26.7 % (42.0-52.0); Hemoglobin 8.3 g/dL (14.0-18.0); Mean Corpuscular HGB Conc 31.1 g/dl (32-36); Mean Corpuscular Hemoglobin 35.2 pg (26-34); Mean Corpuscular Volume 113.1 fl (80-100); Platelet Count Result 160 k/mm3 (150-375); Red Blood Count 2.36 M/mm3 (4.6-6.20); White Blood Count 6.3 K/mm3 (4.5-10.0)
[2025-05-14 06:12] LABS: Anion Gap 10 mmol/L (4-12); Blood Urea Nitrogen 34 mg/dL (9-20); Calcium 9.1 mg/dL (8.4-10.2); Carbon Dioxide 27 mmol/L (22-30); Chloride 98 mmol/L (98-107); Estimated CRCL calculation 60 ml/min; Estimated Glomerular Filt Rate > 60; Glucose 180 mg/dL (65-110); Magnesium 1.4 mg/dL (1.6-2.3); Potassium 3.7 mmol/L (3.4-5.0); Sodium 135 mmol/L (137-145)
[2025-05-14] MEDS: FUROSEMIDE 40 MG TABLET PO ×2 (09:07→18:03)
[2025-05-14] MEDS: CLOPIDOGREL BISULFATE 75 MG TABLET PO (09:07)
[2025-05-14] MEDS: METOPROLOL TARTRATE 25 MG TABLET PO ×2 (09:07→21:03)
[2025-05-14] MEDS: AZITHROMYCIN IV 500 MG in SODIUM CHLORIDE 0.9% IV 250 ML IVPB (09:07)
[2025-05-14] MEDS: ENOXAPARIN 40 MG/0.4 ML SYRINGE SUB-Q (09:07)
[2025-05-14] MEDS: cefTRIAXone 1 GM in SODIUM CHLORIDE 0.9% IV 50 ML 100 ML IVPB (09:08)
--- NOTE | 2025-05-14 12:03 | HOMEO2EVAL ---
Evaluation was performed at [facility] Home Oxygen Evaluation RC: Home Oxygen (O2) Evaluation Start: 05/14/25 10:23 Freq: ONCE Status: Active Protocol: RPE Activity Type Activity Date Activity User E-sign Co-sign Detail Recorded Client Recorded Date Recorded By Document 05/14/25 11:00 [email or web address] [email or web address] 05/14/25 12:02 DJO Document 05/14/25 11:05 [email or web address] [email or web address] 05/14/25 12:02 DJO Document 05/14/25 11:10 [email or web address] [email or web address] 05/14/25 12:02 DJO Document 05/14/25 11:15 [email or web address] [email or web address] 05/14/25 12:02 DJO Document 05/14/25 11:20 [email or web address] [email or web address] 05/14/25 12:02 DJO Document 05/14/25 11:20 [email or web address] [email or web address] 05/14/25 12:02 DJO Document 05/14/25 11:35 [email or web address] [email or web address] 05/14/25 12:02 DJO 05/14/25 05/14/25 05/14/25 11:00 11:05 11:10 Home O2 Evaluation [Oxygen] -Test Phase Resting Resting Resting -Oxygen Delivery Room Air Nasal Cannula Nasal Cannula -Oxygen Flow Rate (L/min) 1 2 [Pulse Oximetry] -Pulse Oximetry (90-100 %) 86 L 88 L 91 [Pulse Rate] -Pulse Rate (60-100 beats/min) 91 88 88 [Evaluation] -Activity Tolerance [Charges] -Evaluation Charges O2 Evaluation by Pulmonary 05/14/25 05/14/25 05/14/25 11:15 11:20 11:20 Home O2 Evaluation [Oxygen] -Test Phase Exercise Exercise Exercise -Oxygen Delivery Nasal Cannula Nasal Cannula Nasal Cannula -Oxygen Flow Rate (L/min) 2 3 4 [Pulse Oximetry] -Pulse Oximetry (90-100 %) 86 L 88 L 91 [Pulse Rate] -Pulse Rate (60-100 beats/min) 95 99 92 [Evaluation] -Activity Tolerance Fair [Charges] -Evaluation Charges 05/14/25 11:35 Home O2 Evaluation [Oxygen] -Test Phase Resting -Oxygen Delivery Nasal Cannula -Oxygen Flow Rate (L/min) 2 [Pulse Oximetry] -Pulse Oximetry (90-100 %) 92 [Pulse Rate] -Pulse Rate (60-100 beats/min) 85 [Evaluation] -Activity Tolerance [Charges] -Evaluation Charges
[2025-05-14] MEDS: MAGNESIUM SULF 4 GM/WATER100ML 4 GM/100 ML BAG IVPB (12:20)
[2025-05-14] MEDS: INSULIN ASPART (*BKC) 100 UNITS/ML SUB-Q (12:20)
--- NOTE | 2025-05-14 14:49 | PCRCNOTE ---
HOME O2 EVAL COMPLETE, 2L REST AND 4L ACTIVITY. SET UP WITH IV & RESP CARE. TANK IN ROOM FOR DISCHARGE.
--- NOTE | 2025-05-14 15:02 | PM.IMPN ---
Progress Note: A&P Assessment and Plan (1) Hypoxia: Code(s): R09.02 - Hypoxemia Status: Acute Assessment and Plan: Patient is satting 100% on room air at rest. However significantly drops into the 70s and 80s with ambulating a short distance, observed by ED provider. Patient's imaging currently concerning for bilateral pneumonia as well as patient's current symptoms (i.e. Shortness of breath, cough, congestion). Patient also has underlying COPD which may be contributing. Start patient on broad-spectrum antibiotics for pneumonia. Will need reassessment of ambulatory O2, may need home O2 eval. (2) Pneumonia: Qualifiers: Pneumonia type: due to unspecified organism Laterality: bilateral Lung location: unspecified part of lung Qualified Code(s): J18.9 - Pneumonia, unspecified organism Code(s): J18.9 - Pneumonia, unspecified organism Status: Acute Assessment and Plan: CXR completed on 05/11 showed bilateral pneumonia. Patient is also experiencing shortness of breath, cough, and congestion. Potentially complicated by underlying COPD/emphysema, no previous diagnosis. - viral PCR negative on 05/11 - started on ceftriaxone and azithromycin on 05/11 - supportive care: Mucinex, Tylenol, Tessalon Perles, DuoNebs april - hypoxia noted with exertion, monitor O2 sats and will need re-evaluation of ambulatory O2 (3) ARLETH (acute kidney injury): Code(s): N17.9 - Acute kidney failure, unspecified Status: Acute Assessment and Plan: Patient was recently seen at [facility] on 05/01. At that time there was concern for CHF exacerbation given patient's BNP was elevated. However and echo was completed which showed a preserved EF and some mild aortic stenosis. Patient's Lasix was increased from 40 mg b.i.d. to 80 mg b.i.d.. He is currently reporting that he feels dehydrated since the medication change. Upon admission the patient's creatinine was 1.54, BUN 48, GFR 45. No previous lab work available for comparison. Plan to reduce patient's Lasix back to 40 mg b.i.d. and give so transfusion of IV fluids. - reduce patient's Lasix >> 80 mg b.i.d. to 40 mg b.i.d. - started on IV fluids: LR 100 mL/hour x1 L - trend renal function - trend electrolytes, correct as needed (4) COPD (chronic obstructive pulmonary disease): Qualifiers: COPD type: emphysema Emphysema type: unspecified Qualified Code(s): J43.9 - Emphysema, unspecified Code(s): J44.9 - Chronic obstructive pulmonary disease, unspecified Status: Suspected Assessment and Plan: Has hx of smoking - 20 years, 1.5 PPD. Has not previously been diagnosed with emphysema or COPD. No significant respiratory distress or wheezing upon initial exam in the emergency department. However, patient reports improvement in his SOB with nebulizer given in the ED. - Robinson chen - will need pulmonology referral outpatient, last saw 1 years ago for low-dose CT as preventative care due to his history of smoking. would prefer not to go back to who he saw previously at [facility] - no wheezing on exam, hold on steroid course (5) (HFpEF) heart failure with preserved ejection fraction: Qualifiers: Heart failure chronicity: chronic Qualified Code(s): I50.32 - Chronic diastolic (congestive) heart failure Code(s): I50.30 - Unspecified diastolic (congestive) heart failure Status: Chronic Assessment and Plan: Recently seen at [facility] on 05/01. Echo completed at that time, obtain records. Patient currently has ARLETH, high suspicion that this is secondary to his recent up titration of his Lasix (40 mg b.i.d. to 80 mg b.i.d.). Patient appears dry on exam, no concern for pulmonary edema on CXR, and no peripheral edema observed. Currently feeling dry. 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 Glucose 155 upon admission on 05/11. - hypoglycemia protocol - POC blood glucose ACHS - not currently on diabetes medications outpatient and has been controlling it with his diet, update A1c - correct regimen ordered - moderate dose TIDWM, based off BMI (7) Hypertension: Qualifiers: Hypertension type: primary hypertension Qualified Code(s): I10 - Essential (primary) hypertension Code(s): I10 - Essential (primary) hypertension Status: Chronic Assessment and Plan: - chronic, currently 105/62. - continue metoprolol. Hold losartan as the patient's pressure is currently on the low end of normotensive, resume when appropriate. - monitor Plan patient presented with shortness of breath with history of smoking in the past is found to have pneumonia most likely CAP being treated with ceftriaxone and Zithromax, patient also has history of COPD and treated with Duo neb which patient stats his helping, will monitor, and will have PT/OT evaluate the patient, further recommendation to follow. Patient with b/l pneumonia, stats he is feeling much better compared to when he arrived, stats he is able to breath better, denies any fever or chills, he is requiring oxygen, today repeat chest x-ray still showed persistent b/l pneumonia, will CPM, will do home oxygen evaluation before discharging patient home. will continue to monitor. Diet: Heart healthy GI Prophylaxis: N/a DVT Prophylaxis: Lovenox IV fluids: 100 mL/hour x1 L Lines/Tubes: Peripheral IV Code Status: Full code Subjective Date/time seen: 05/14/25 15:02 Interval history: Shortness of Breath H&P-Narrative: 70 y/o M with PMH of HFpEF, COPD, former smoker, mild aortic stenosis, diabetes, hyperlipidemia, and hypertension presents here with shortness of breath. The patient presents here from home on 05/11 for further evaluation of shortness of breath. He reports the shortness of breath has been ongoing for the past couple of weeks. Worsens with exertion and at night. He was [place] [facility]. At that time he underwent a CTA which was negative for PE. Patient had an elevated BNP around 800 at that time, echo was completed which showed ejection fraction of 65-70% and some mild aortic stenosis. He was previously on Lasix 40 mg b.i.d. which was subsequently increased to 80 mg b.i.d.. He reports he has been currently feeling dehydrated since the medication change and he has had no change in his current shortness of breath. He reports an accompanying dry cough, congestion, chills, and feeling warm. He denies associated nausea, vomiting, chest pain, diarrhea, abdominal pain, melena or hematochezia. Upon initial evaluation in the emergency department the patient was 100% on room air at rest. Patient was later ambulated by the ED physician and his oxygen dropped to 84% on room air with only a short distance. Initial VS at presentation: 98.1? F, HR 105, RR 20, 102/61, 100% on RA. ED workup showed: WBC 8.1, hemoglobin 9.8 (no previous available for comparison), INR 1.2, no significant electrolyte derangements, creatinine 1.54 and GFR 45 (no previous for comparison), glucose 155, BNP 778 (normal for age), and initial troponin 0.012. Viral PCR negative. CXR showed bilateral pneumonia. EKG showed sinus rhythm with first-degree AV block, incomplete right bundle branch block, delayed precordial R/S transition, low QRS voltage in precordial leads, inferior infarct age indeterminate. patient presented with shortness of breath with history of smoking in the past is found to have pneumonia most likely CAP being treated with ceftriaxone and Zithromax, patient also has history of COPD and treated with Duo neb which patient stats his helping, will monitor, and will have PT/OT evaluate the patient, further recommendation to follow. Patient with b/l pneumonia, stats he is feeling much better compared to when he arrived, stats he is able to breath better, denies any fever or chills, he is requiring oxygen, today repeat chest x-ray still showed persistent b/l pneumonia, will CPM, will do home oxygen evaluation before discharging patient home. will continue to monitor. Review of Systems Review of Systems: All systems reviewed & are unremarkable except as noted in HPI and below Exam Narrative: Patient is comfortable, NAD HEENT: eyes are clear and none icteric LUNGS:CTA HEART: RR S1S2 ABD: BS+, Soft and nontender Lower extremities: no edema SKIN: nonjaundiced Neuro: grossly intact. Objective Data Vital Signs Vital Signs: Vital Signs - 24 hr 05/13/25 20:00 05/13/25 20:21 05/13/25 20:21 Temperature Pulse Rate 103 H Respiratory Rate 18 Blood Pressure Pulse Oximetry 96 92 Oxygen Delivery Nasal Cannula Oxygen Flow Rate 2 2 05/13/25 20:26 05/13/25 20:43 05/13/25 22:00 Temperature 36.2 C L Pulse Rate 108 H 108 H 87 Respiratory Rate 18 18 Blood Pressure 115/69 Pulse Oximetry 96 Oxygen Delivery Oxygen Flow Rate 05/14/25 01:51 05/14/25 02:00 05/14/25 05:00 Temperature 36.3 C L Pulse Rate 85 88 99 Respiratory Rate 18 18 18 Blood Pressure 138/55 L Pulse Oximetry 93 Oxygen Delivery Oxygen Flow Rate 05/14/25 07:53 05/14/25 07:53 05/14/25 07:59 Temperature Pulse Rate 91 108 H Respiratory Rate 20 20 Blood Pressure Pulse Oximetry 95 Oxygen Delivery Nasal Cannula Oxygen Flow Rate 2 05/14/25 08:00 05/14/25 11:00 05/14/25 11:05 Temperature Pulse Rate 91 88 Respiratory Rate Blood Pressure Pulse Oximetry 95 86 L 88 L Oxygen Delivery Nasal Cannula Room Air Nasal Cannula Oxygen Flow Rate 2 1 05/14/25 11:10 05/14/25 11:15 05/14/25 11:20 Temperature Pulse Rate 88 95 99 Respiratory Rate Blood Pressure Pulse Oximetry 91 86 L 88 L Oxygen Delivery Nasal Cannula Nasal Cannula Nasal Cannula Oxygen Flow Rate 2 2 3 05/14/25 11:20 05/14/25 11:35 05/14/25 13:45 Temperature Pulse Rate 92 85 91 Respiratory Rate 20 Blood Pressure Pulse Oximetry 91 92 Oxygen Delivery Nasal Cannula Nasal Cannula Oxygen Flow Rate 4 2 05/14/25 13:50 05/14/25 13:53 Temperature 36.1 C L Pulse Rate 94 86 Respiratory Rate 20 18 Blood Pressure 132/52 L Pulse Oximetry 96 Oxygen Delivery Oxygen Flow Rate Intake/Output Intake/Output: Intake & Output 05/11/25 05/12/25 05/13/25 05/14/25 23:59 23:59 23:59 23:59 Intake Total 410 2530 1750 1266 Balance 410 2530 1750 1266 Meds/Results Medications: Active Medications Generic Name Dose Route Start Last Admin Trade Name Freq PRN Reason Stop Dose Admin Acetaminophen 650 mg 05/11/25 16:21 Acetaminophen 325 Mg Tablet PO Q4H PRN Mild Pain (1-3) or Fever Hydrocodone Bitart/Acetaminophen 1 tab 05/11/25 16:21 Hydrocodone/Acetaminophen (*Crx) 5-325 Mg Tablet PO Q4H PRN Moderate Pain (4-6) Albuterol/Ipratropium 3 ml 05/11/25 20:00 05/14/25 13:43 Ipratropium 0.5 Mg/Albuterol Sulfate 2.5 Mg (Base) Ampul.Neb 3 Ml INHALATION 3 ml Q6HRT APRIL Administration Atorvastatin Calcium 80 mg 05/11/25 21:00 05/13/25 20:40 Atorvastatin 40 Mg Tablet PO 80 mg HS APRIL Administration Bisacodyl 5 mg 05/11/25 16:21 Bisacodyl 5 Mg Tablet Ec PO DAILY PRN Constipation Clopidogrel Bisulfate 75 mg 05/12/25 09:00 05/14/25 09:07 Clopidogrel Bisulfate 75 Mg Tablet PO 75 mg DAILY APRIL Administration Dextrose 12.5 gm 05/11/25 16:22 Dextrose 50% 25 Gm/50 Ml Syringe IV PUSH PRN PRN Hypoglycemia Protocol Enoxaparin Sodium 40 mg 05/12/25 09:00 05/14/25 09:07 Enoxaparin 40 Mg/0.4 Ml Syringe SUB-Q 40 mg DAILY APRIL Administration Furosemide 40 mg 05/12/25 09:00 05/14/25 09:07 Furosemide 40 Mg Tablet PO 40 mg BID APRIL Administration Gemfibrozil 600 mg 05/11/25 21:00 05/13/25 20:41 Gemfibrozil 600 Mg Tablet PO 600 mg HS APRIL Administration Glucagon 1 mg 05/11/25 16:22 Glucagon For Inj 1 Mg Vial IM PRN PRN Hypoglycemia Protocol Glucose 15 gm 05/11/25 16:22 Glucose Oral Gel 15 Gm Of Glucse In 37.5 Gm Tube PO PRN PRN Hypoglycemia Protocol Ceftriaxone Sodium 1 gm/ 50 mls @ 100 mls/hr 05/12/25 09:00 05/14/25 09:08 Sodium Chloride IVPB 100 mls/hr QAM APRIL Administration Azithromycin 500 mg/ Sodium 250 mls @ 250 mls/hr 05/12/25 09:00 05/14/25 09:07 Chloride IVPB 05/15/25 09:59 250 mls/hr QAM APRIL Administration Dextrose 1,000 mls @ 100 mls/hr 05/11/25 16:22 Dextrose 5% 1,000 Ml IVPB PRN PRN Hypoglycemia Protocol Insulin Aspart 3 - 6 units 05/11/25 17:00 05/14/25 12:20 Insulin Aspart (*Bkc) 100 Units/Ml SUB-Q 3 units TIDWM APRIL Administration Protocol Metoprolol Tartrate 25 mg 05/11/25 21:00 05/14/25 09:07 Metoprolol Tartrate 25 Mg Tablet PO 25 mg Q12HR APRIL Administration Ondansetron HCl 4 mg 05/11/25 16:21 Ondansetron Hcl Odt 4 Mg Tablet PO Q6H PRN Nausea And Vomiting Sodium Chloride 3 gm 05/11/25 21:00 05/13/25 20:42 Sodium Chloride 1 Gm Tablet PO 3 gm HS APRIL Administration Tamsulosin HCl 0.4 mg 05/11/25 21:00 05/13/25 20:41 Tamsulosin Hcl 0.4 Mg Capsule PO 0.4 mg HS APRIL Administration Radiology Results: ITS Impressions Chest X-Ray 05/14/25 13:11 Impression: Bilateral pneumonia superimposed on chronic lung disease. The findings are new compared to the previous exam Labs Labs: Laboratory Results - last 24 hr 05/13/25 05/13/25 05/14/25 16:36 22:23 05:20 WBC 6.3 RBC 2.36 L Hgb 8.3 L Hct 26.7 L MCV 113.1 H MCH 35.2 H MCHC 31.1 L RDW 15.3 H Plt Count 160 MPV 10.2 Sodium 135 L Potassium 3.7 Chloride 98 Carbon Dioxide 27 Anion Gap 10 BUN 34 H Creatinine 1.11 Estim Creat Clear Calc 60 Estimated GFR > 60 Glucose 180 H POC Capillary Glucose 119 H 162 H Calcium 9.1 Magnesium 1.4 L 05/14/25 05/14/25 07:37 11:16 WBC RBC Hgb Hct MCV MCH MCHC RDW Plt Count MPV Sodium Potassium Chloride Carbon Dioxide Anion Gap BUN Creatinine Estim Creat Clear Calc Estimated GFR Glucose POC Capillary Glucose 163 H 217 H Calcium Magnesium Quality VTE Prophylaxis VTE prophylaxis: pharmacologic ordered
[2025-05-14] MEDS: SODIUM CHLORIDE 1 GM TABLET 3 GM PO (21:02)
[2025-05-14] MEDS: ATORVASTATIN 40 MG TABLET 80 MG PO (21:03)
[2025-05-14] MEDS: TAMSULOSIN HCL 0.4 MG CAPSULE PO (21:03)
[2025-05-15] VITALS (15 sets, daily range): BP systolic 119–122; BP diastolic 51–61; PULSE 76–98; RESP 16–20; TEMP 36.3–36.4; O2SAT 94–98
[2025-05-15] MEDS: IPRATROPIUM 0.5 MG/ALBUTEROL SULFATE 2.5 MG (BASE) AMPUL.NEB 3 ML INHALATION ×4 (01:25→20:30)
[2025-05-15 05:50] LABS: Hematocrit 26.3 % (42.0-52.0); Hemoglobin 8.2 g/dL (14.0-18.0); Mean Corpuscular HGB Conc 31.2 g/dl (32-36); Mean Corpuscular Hemoglobin 35.0 pg (26-34); Mean Corpuscular Volume 112.4 fl (80-100); Platelet Count Result 169 k/mm3 (150-375); Red Blood Count 2.34 M/mm3 (4.6-6.20); White Blood Count 5.9 K/mm3 (4.5-10.0)
[2025-05-15 06:18] LABS: Anion Gap 10 mmol/L (4-12); Blood Urea Nitrogen 33 mg/dL (9-20); Calcium 9.2 mg/dL (8.4-10.2); Carbon Dioxide 28 mmol/L (22-30); Chloride 97 mmol/L (98-107); Estimated CRCL calculation 58 ml/min; Estimated Glomerular Filt Rate > 60; Glucose 173 mg/dL (65-110); Magnesium 2.1 mg/dL (1.6-2.3); Potassium 4.3 mmol/L (3.4-5.0); Sodium 135 mmol/L (137-145)
--- NOTE | 2025-05-15 06:46 | PC.NURSE ---
pt. will not get in the bed to be weighed. Pt. only sleeps in a chair.
[2025-05-15] MEDS: FUROSEMIDE 40 MG TABLET PO ×2 (09:28→18:07)
[2025-05-15] MEDS: METOPROLOL TARTRATE 25 MG TABLET PO ×2 (09:28→20:19)
[2025-05-15] MEDS: CLOPIDOGREL BISULFATE 75 MG TABLET PO (09:28)
[2025-05-15] MEDS: cefTRIAXone 1 GM in SODIUM CHLORIDE 0.9% IV 50 ML 100 ML IVPB (09:28)
[2025-05-15] MEDS: ENOXAPARIN 40 MG/0.4 ML SYRINGE SUB-Q (09:29)
[2025-05-15] MEDS: AZITHROMYCIN 500 MG TABLET PO (09:30)
--- NOTE | 2025-05-15 12:23 | P.PNIM_ITS ---
Progress Note: A&P Assessment and Plan (1) Hypoxia: Code(s): R09.02 - Hypoxemia Status: Acute Assessment and Plan: Patient is satting 100% on room air at rest. However significantly drops into the 70s and 80s with ambulating a short distance, observed by ED provider. Patient's imaging currently concerning for bilateral pneumonia as well as patient's current symptoms (i.e. Shortness of breath, cough, congestion). Patient also has underlying COPD which may be contributing. Start patient on broad-spectrum antibiotics for pneumonia. Will need reassessment of ambulatory O2, may need home O2 eval. (2) Pneumonia: Qualifiers: Pneumonia type: due to unspecified organism Laterality: bilateral Lung location: unspecified part of lung Qualified Code(s): J18.9 - Pneumonia, unspecified organism Code(s): J18.9 - Pneumonia, unspecified organism Status: Acute Assessment and Plan: CXR completed on 05/11 showed bilateral pneumonia. Patient is also experiencing shortness of breath, cough, and congestion. Potentially complicated by underlying COPD/emphysema, no previous diagnosis. - viral PCR negative on 05/11 - started on ceftriaxone and azithromycin on 05/11 - supportive care: Mucinex, Tylenol, Tessalon Perles, DuoNebs april - hypoxia noted with exertion, monitor O2 sats and will need re-evaluation of ambulatory O2 (3) ARLETH (acute kidney injury): Code(s): N17.9 - Acute kidney failure, unspecified Status: Acute Assessment and Plan: Patient was recently seen at [place] [facility] on 05/01. At that time there was concern for CHF exacerbation given patient's BNP was elevated. However and echo was completed which showed a preserved EF and some mild aortic stenosis. Patient's Lasix was increased from 40 mg b.i.d. to 80 mg b.i.d.. He is currently reporting that he feels dehydrated since the medication change. Upon admission the patient's creatinine was 1.54, BUN 48, GFR 45. No previous lab work available for comparison. Plan to reduce patient's Lasix back to 40 mg b.i.d. and give so transfusion of IV fluids. - reduce patient's Lasix >> 80 mg b.i.d. to 40 mg b.i.d. - started on IV fluids: LR 100 mL/hour x1 L - trend renal function - trend electrolytes, correct as needed (4) COPD (chronic obstructive pulmonary disease): Qualifiers: COPD type: emphysema Emphysema type: unspecified Qualified Code(s): J43.9 - Emphysema, unspecified Code(s): J44.9 - Chronic obstructive pulmonary disease, unspecified Status: Suspected Assessment and Plan: Has hx of smoking - 20 years, 1.5 PPD. Has not previously been diagnosed with emphysema or COPD. No significant respiratory distress or wheezing upon initial exam in the emergency department. However, patient reports improvement in his SOB with nebulizer given in the ED. - Robinson chen - will need pulmonology referral outpatient, last saw 1 years ago for low-dose CT as preventative care due to his history of smoking. would prefer not to go back to who he saw previously at [facility] - no wheezing on exam, hold on steroid course (5) (HFpEF) heart failure with preserved ejection fraction: Qualifiers: Heart failure chronicity: chronic Qualified Code(s): I50.32 - Chronic diastolic (congestive) heart failure Code(s): I50.30 - Unspecified diastolic (congestive) heart failure Status: Chronic Assessment and Plan: Recently seen at [facility] on 05/01. Echo completed at that time, obtain records. Patient currently has ARLETH, high suspicion that this is secondary to his recent up titration of his Lasix (40 mg b.i.d. to 80 mg b.i.d.). Patient appears dry on exam, no concern for pulmonary edema on CXR, and no peripheral edema observed. Currently feeling dry. 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 Glucose 155 upon admission on 05/11. - hypoglycemia protocol - POC blood glucose ACHS - not currently on diabetes medications outpatient and has been controlling it with his diet, update A1c - correct regimen ordered - moderate dose TIDWM, based off BMI (7) Hypertension: Qualifiers: Hypertension type: primary hypertension Qualified Code(s): I10 - Essential (primary) hypertension Code(s): I10 - Essential (primary) hypertension Status: Chronic Assessment and Plan: - chronic, currently 105/62. - continue metoprolol. Hold losartan as the patient's pressure is currently on the low end of normotensive, resume when appropriate. - monitor Plan patient presented with shortness of breath with history of smoking in the past is found to have pneumonia most likely CAP being treated with ceftriaxone and Zithromax, patient also has history of COPD and treated with Duo neb which patient stats his helping, will monitor, and will have PT/OT evaluate the patient, further recommendation to follow. Patient with b/l pneumonia, stats he is feeling much better compared to when he arrived, stats he is able to breath better, denies any fever or chills, he is requiring oxygen, and last he needed 4L for little while and now back to 2L/NC, on 05/14 repeat chest x-ray still showed persistent b/l pneumonia, will continue IV abx, will CPM, will do home oxygen evaluation before discharging patient home. will continue to monitor. Diet: Heart healthy GI Prophylaxis: N/a DVT Prophylaxis: Lovenox IV fluids: 100 mL/hour x1 L Lines/Tubes: Peripheral IV Code Status: Full code Subjective Date/time seen: 05/15/25 12:23 Interval history: Shortness of Breath H&P-Narrative: 70 y/o M with PMH of HFpEF, COPD, former smoker, mild aortic stenosis, diabetes, hyperlipidemia, and hypertension presents here with shortness of breath. The patient presents here from home on 05/11 for further evaluation of shortness of breath. He reports the shortness of breath has been ongoing for the past couple of weeks. Worsens with exertion and at night. He was initially evaluated at [facility] on 05/01/2025. At that time he underwent a CTA which was negative for PE. Patient had an elevated BNP around 800 at that time, echo was completed which showed ejection fraction of 65-70% and some mild aortic stenosis. He was previously on Lasix 40 mg b.i.d. which was subsequently increased to 80 mg b.i.d.. He reports he has been currently feeling dehydrated since the medication change and he has had no change in his current shortness of breath. He reports an accompanying dry cough, congestion, chills, and feeling warm. He denies associated nausea, vomiting, chest pain, diarrhea, abdominal pain, melena or hematochezia. Upon initial evaluation in the emergency department the patient was 100% on room air at rest. Patient was later ambulated by the ED physician and his oxygen dropped to 84% on room air with only a short distance. Initial VS at presentation: 98.1? F, HR 105, RR 20, 102/61, 100% on RA. ED workup showed: WBC 8.1, hemoglobin 9.8 (no previous available for comparison), INR 1.2, no significant electrolyte derangements, creatinine 1.54 and GFR 45 (no previous for comparison), glucose 155, BNP 778 (normal for age), and initial troponin 0.012. Viral PCR negative. CXR showed bilateral pneumonia. EKG showed sinus rhythm with first-degree AV block, incomplete right bundle branch block, delayed precordial R/S transition, low QRS voltage in precordial leads, inferior infarct age indeterminate. patient presented with shortness of breath with history of smoking in the past is found to have pneumonia most likely CAP being treated with ceftriaxone and Zithromax, patient also has history of COPD and treated with Duo neb which patient stats his helping, will monitor, and will have PT/OT evaluate the patient, further recommendation to follow. Patient with b/l pneumonia, stats he is feeling much better compared to when he arrived, stats he is able to breath better, denies any fever or chills, he is requiring oxygen, and last he needed 4L for little while and now back to 2L/NC, on 05/14 repeat chest x-ray still showed persistent b/l pneumonia, will continue IV abx, will CPM, will do home oxygen evaluation before discharging patient home. will continue to monitor. Review of Systems Review of Systems: All systems reviewed & are unremarkable except as noted in HPI and below Exam Narrative: Patient is comfortable, NAD HEENT: eyes are clear and none icteric LUNGS:CTA HEART: RR S1S2 ABD: BS+, Soft and nontender Lower extremities: no edema SKIN: nonjaundiced Neuro: grossly intact. Objective Data Vital Signs Vital Signs: Vital Signs - 24 hr 05/14/25 13:45 05/14/25 13:50 05/14/25 13:53 Temperature 36.1 C L Pulse Rate 91 94 86 Respiratory Rate 20 20 18 Blood Pressure 132/52 L Pulse Oximetry 96 Oxygen Delivery Oxygen Flow Rate Fraction of Inspired Oxygen 05/14/25 19:58 05/14/25 20:02 05/14/25 20:07 Temperature Pulse Rate 95 95 96 Respiratory Rate 20 20 20 Blood Pressure Pulse Oximetry 97 Oxygen Delivery Nasal Cannula Oxygen Flow Rate 4 Fraction of Inspired Oxygen 36 05/14/25 20:54 05/15/25 01:25 05/15/25 01:34 Temperature 36.4 C Pulse Rate 96 83 85 Respiratory Rate 18 20 20 Blood Pressure 131/62 Pulse Oximetry 93 Oxygen Delivery Oxygen Flow Rate Fraction of Inspired Oxygen 05/15/25 06:00 05/15/25 07:34 05/15/25 07:35 Temperature 36.3 C L Pulse Rate 92 76 Respiratory Rate 16 20 Blood Pressure 121/61 Pulse Oximetry 98 98 Oxygen Delivery Nasal Cannula Oxygen Flow Rate 3 Fraction of Inspired Oxygen 05/15/25 07:40 Temperature Pulse Rate 76 Respiratory Rate 20 Blood Pressure Pulse Oximetry Oxygen Delivery Oxygen Flow Rate Fraction of Inspired Oxygen Intake/Output Intake/Output: Intake & Output 05/12/25 05/13/25 05/14/25 05/15/25 23:59 23:59 23:59 23:59 Intake Total 2530 1750 2342 340 Balance 2530 1750 2342 340 Meds/Results Medications: Active Medications Generic Name Dose Route Start Last Admin Trade Name Freq PRN Reason Stop Dose Admin Acetaminophen 650 mg 05/11/25 16:21 Acetaminophen 325 Mg Tablet PO Q4H PRN Mild Pain (1-3) or Fever Hydrocodone Bitart/Acetaminophen 1 tab 05/11/25 16:21 Hydrocodone/Acetaminophen (*Crx) 5-325 Mg Tablet PO Q4H PRN Moderate Pain (4-6) Albuterol/Ipratropium 3 ml 05/11/25 20:00 05/15/25 07:32 Ipratropium 0.5 Mg/Albuterol Sulfate 2.5 Mg (Base) Ampul.Neb 3 Ml INHALATION 3 ml Q6HRT APRIL Administration Atorvastatin Calcium 80 mg 05/11/25 21:00 05/14/25 21:03 Atorvastatin 40 Mg Tablet PO 80 mg HS APRIL Administration Bisacodyl 5 mg 05/11/25 16:21 Bisacodyl 5 Mg Tablet Ec PO DAILY PRN Constipation Clopidogrel Bisulfate 75 mg 05/12/25 09:00 05/15/25 09:28 Clopidogrel Bisulfate 75 Mg Tablet PO 75 mg DAILY APRIL Administration Dextrose 12.5 gm 05/11/25 16:22 Dextrose 50% 25 Gm/50 Ml Syringe IV PUSH PRN PRN Hypoglycemia Protocol Enoxaparin Sodium 40 mg 05/12/25 09:00 05/15/25 09:29 Enoxaparin 40 Mg/0.4 Ml Syringe SUB-Q 40 mg DAILY APRIL Administration Fluticasone Propionate 2 spray 05/15/25 09:35 Fluticasone Propionate 0.05% Na Spr 16 Gm Btl (*Bkc) NASAL Q12HR APRIL Furosemide 40 mg 05/12/25 09:00 05/15/25 09:28 Furosemide 40 Mg Tablet PO 40 mg BID APRIL Administration Gemfibrozil 600 mg 05/11/25 21:00 05/14/25 21:03 Gemfibrozil 600 Mg Tablet PO 600 mg HS APRIL Administration Glucagon 1 mg 05/11/25 16:22 Glucagon For Inj 1 Mg Vial IM PRN PRN Hypoglycemia Protocol Glucose 15 gm 05/11/25 16:22 Glucose Oral Gel 15 Gm Of Glucse In 37.5 Gm Tube PO PRN PRN Hypoglycemia Protocol Ceftriaxone Sodium 1 gm/ 50 mls @ 100 mls/hr 05/12/25 09:00 05/15/25 09:28 Sodium Chloride IVPB 05/17/25 09:29 100 mls/hr QAM APRIL Administration Dextrose 1,000 mls @ 100 mls/hr 05/11/25 16:22 Dextrose 5% 1,000 Ml IVPB PRN PRN Hypoglycemia Protocol Insulin Aspart 3 - 6 units 05/11/25 17:00 05/15/25 09:27 Insulin Aspart (*Bkc) 100 Units/Ml SUB-Q Not Given TIDWM APRIL Protocol Metoprolol Tartrate 25 mg 05/11/25 21:00 05/15/25 09:28 Metoprolol Tartrate 25 Mg Tablet PO 25 mg Q12HR APRIL Administration Ondansetron HCl 4 mg 05/11/25 16:21 Ondansetron Hcl Odt 4 Mg Tablet PO Q6H PRN Nausea And Vomiting Sodium Chloride 3 gm 05/11/25 21:00 05/14/25 21:02 Sodium Chloride 1 Gm Tablet PO 3 gm HS APRIL Administration Tamsulosin HCl 0.4 mg 05/11/25 21:00 05/14/25 21:03 Tamsulosin Hcl 0.4 Mg Capsule PO 0.4 mg HS APRIL Administration Radiology Results: ITS Impressions Chest X-Ray 05/14/25 13:11 Impression: Bilateral pneumonia superimposed on chronic lung disease. The findings are new compared to the previous exam Labs Labs: Laboratory Results - last 24 hr 05/14/25 05/14/25 05/15/25 16:30 19:40 05:16 WBC 5.9 RBC 2.34 L Hgb 8.2 L Hct 26.3 L MCV 112.4 H MCH 35.0 H MCHC 31.2 L RDW 15.1 H Plt Count 169 MPV 10.3 Sodium 135 L Potassium 4.3 Chloride 97 L Carbon Dioxide 28 Anion Gap 10 BUN 33 H Creatinine 1.14 Estim Creat Clear Calc 58 Estimated GFR > 60 Glucose 173 H POC Capillary Glucose 119 H 251 H Calcium 9.2 Magnesium 2.1 05/15/25 05/15/25 07:12 11:21 WBC RBC Hgb Hct MCV MCH MCHC RDW Plt Count MPV Sodium Potassium Chloride Carbon Dioxide Anion Gap BUN Creatinine Estim Creat Clear Calc Estimated GFR Glucose POC Capillary Glucose 150 H 206 H Calcium Magnesium Quality VTE Prophylaxis VTE prophylaxis: pharmacologic ordered
[2025-05-15] MEDS: FLUTICASONE PROPIONATE 0.05% NA SPR 16 GM BTL (*BKC) 2 SPRAY NASAL ×2 (12:43→20:19)
[2025-05-15] MEDS: INSULIN ASPART (*BKC) 100 UNITS/ML SUB-Q (12:44)
[2025-05-15] MEDS: TAMSULOSIN HCL 0.4 MG CAPSULE PO (20:19)
[2025-05-15] MEDS: SODIUM CHLORIDE 1 GM TABLET 3 GM PO (20:19)
[2025-05-15] MEDS: ATORVASTATIN 40 MG TABLET 80 MG PO (20:19)
[2025-05-16] VITALS (17 sets, daily range): BP systolic 120–159; BP diastolic 52–70; PULSE 85–105; RESP 16–20; TEMP 36.2–36.4; O2SAT 86–95
[2025-05-16 06:16] LABS: Hematocrit 24.1 % (42.0-52.0); Hemoglobin 7.6 g/dL (14.0-18.0); Mean Corpuscular HGB Conc 31.5 g/dl (32-36); Mean Corpuscular Hemoglobin 34.9 pg (26-34); Mean Corpuscular Volume 110.6 fl (80-100); Platelet Count Result 181 k/mm3 (150-375); Red Blood Count 2.18 M/mm3 (4.6-6.20); White Blood Count 5.7 K/mm3 (4.5-10.0)
[2025-05-16 06:44] LABS: Anion Gap 9 mmol/L (4-12); Blood Urea Nitrogen 38 mg/dL (9-20); Calcium 9.1 mg/dL (8.4-10.2); Carbon Dioxide 29 mmol/L (22-30); Chloride 96 mmol/L (98-107); Estimated CRCL calculation 61 ml/min; Estimated Glomerular Filt Rate > 60; Glucose 161 mg/dL (65-110); Magnesium 1.9 mg/dL (1.6-2.3); Potassium 4.0 mmol/L (3.4-5.0); Sodium 134 mmol/L (137-145)
[2025-05-16] MEDS: IPRATROPIUM 0.5 MG/ALBUTEROL SULFATE 2.5 MG (BASE) AMPUL.NEB 3 ML INHALATION ×2 (07:50→18:12)
[2025-05-16] MEDS: CLOPIDOGREL BISULFATE 75 MG TABLET PO (08:26)
[2025-05-16] MEDS: FLUTICASONE PROPIONATE 0.05% NA SPR 16 GM BTL (*BKC) 2 SPRAY NASAL ×2 (08:26→22:04)
[2025-05-16] MEDS: METOPROLOL TARTRATE 25 MG TABLET PO ×2 (08:26→21:26)
[2025-05-16] MEDS: ENOXAPARIN 40 MG/0.4 ML SYRINGE SUB-Q (08:26)
[2025-05-16] MEDS: FUROSEMIDE 40 MG TABLET PO ×2 (08:27→17:01)
[2025-05-16] MEDS: cefTRIAXone 1 GM in SODIUM CHLORIDE 0.9% IV 50 ML 100 ML IVPB (08:27)
--- NOTE | 2025-05-16 12:10 | PC.NURSE ---
pt continues to refuse bed/chair alarms this AM. This RN educated pt on safety precautions in the hospital setting, indication of alarm placements, pt refused. certified orthotist/pedorthist, Andrzej Still, notified of alarm refusal.
--- NOTE | 2025-05-16 14:04 | HOMEO2EVAL ---
Evaluation was performed at [facility] Home Oxygen Evaluation RC: Home Oxygen (O2) Evaluation Start: 05/14/25 10:23 Freq: ONCE Status: Active Protocol: RPE Activity Type Activity Date Activity User E-sign Co-sign Detail Recorded Client Recorded Date Recorded By Document 05/16/25 12:00 [email or web address] [email or web address] 05/16/25 14:04 WILLIE Document 05/16/25 12:00 [email or web address] [email or web address] 05/16/25 14:04 WILLIE Document 05/16/25 12:03 [email or web address] [email or web address] 05/16/25 14:04 WILLIE 05/16/25 05/16/25 05/16/25 12:00 12:00 12:03 Home O2 Evaluation [Oxygen] -Test Phase Resting Resting Resting -Oxygen Delivery Room Air Nasal Cannula Nasal Cannula -Oxygen Flow Rate (L/min) 2 3 [Pulse Oximetry] -Pulse Oximetry (90-100 %) 86 L 88 L 92 [Comments] -Home Oxygen Evaluation Comments REPEATED ROOM AIR SPO2 TO REQUALIFY. PATIENT NOW REQUIRES 3 LITERS AT REST AND 4 LITERS WITH ACTIVITY [Charges] -Evaluation Charges O2 Evaluation by Pulmonary
--- NOTE | 2025-05-16 14:19 | PM.IMPN ---
Progress Note: A&P Assessment and Plan (1) Hypoxia: Code(s): R09.02 - Hypoxemia Status: Acute Assessment and Plan: Patient is satting 100% on room air at rest. However significantly drops into the 70s and 80s with ambulating a short distance, observed by ED provider. Patient's imaging currently concerning for bilateral pneumonia as well as patient's current symptoms (i.e. Shortness of breath, cough, congestion). Patient also has underlying COPD which may be contributing. Start patient on broad-spectrum antibiotics for pneumonia. Arrange home oxygen (2) Pneumonia: Qualifiers: Pneumonia type: due to unspecified organism Laterality: bilateral Lung location: unspecified part of lung Qualified Code(s): J18.9 - Pneumonia, unspecified organism Code(s): J18.9 - Pneumonia, unspecified organism Status: Acute Assessment and Plan: CXR completed on 05/11 showed bilateral pneumonia. Patient is also experiencing shortness of breath, cough, and congestion. Potentially complicated by underlying COPD/emphysema, no previous diagnosis. - viral PCR negative on 05/11 - started on ceftriaxone and azithromycin on 05/11 - supportive care: Mucinex, Tylenol, Tessalon Perles, DuoNebs april - hypoxia noted with exertion, monitor O2 sats and will arrange home oxygen. (3) ARLETH (acute kidney injury): Code(s): N17.9 - Acute kidney failure, unspecified Status: Acute Assessment and Plan: Patient was recently seen at [facility] on 05/01. At that time there was concern for CHF exacerbation given patient's BNP was elevated. However and echo was completed which showed a preserved EF and some mild aortic stenosis. Patient's Lasix was increased from 40 mg b.i.d. to 80 mg b.i.d.. He is currently reporting that he feels dehydrated since the medication change. Upon admission the patient's creatinine was 1.54, BUN 48, GFR 45. No previous lab work available for comparison. Plan to reduce patient's Lasix back to 40 mg b.i.d. and give so transfusion of IV fluids. - reduce patient's Lasix >> 80 mg b.i.d. to 40 mg b.i.d. - started on IV fluids: LR 100 mL/hour x1 L - trend renal function - trend electrolytes, correct as needed (4) COPD (chronic obstructive pulmonary disease): Qualifiers: COPD type: emphysema Emphysema type: unspecified Qualified Code(s): J43.9 - Emphysema, unspecified Code(s): J44.9 - Chronic obstructive pulmonary disease, unspecified Status: Suspected Assessment and Plan: Has hx of smoking - 20 years, 1.5 PPD. Has not previously been diagnosed with emphysema or COPD. No significant respiratory distress or wheezing upon initial exam in the emergency department. However, patient reports improvement in his SOB with nebulizer given in the ED. - Robinson chen - will need pulmonology referral outpatient, last saw 1 years ago for low-dose CT as preventative care due to his history of smoking. would prefer not to go back to who he saw previously at [facility] - no wheezing on exam, hold on steroid course (5) (HFpEF) heart failure with preserved ejection fraction: Qualifiers: Heart failure chronicity: chronic Qualified Code(s): I50.32 - Chronic diastolic (congestive) heart failure Code(s): I50.30 - Unspecified diastolic (congestive) heart failure Status: Chronic Assessment and Plan: Recently seen at [facility] on 05/01. Echo completed at that time, obtain records. Patient currently has ARLETH, high suspicion that this is secondary to his recent up titration of his Lasix (40 mg b.i.d. to 80 mg b.i.d.). Patient appears dry on exam, no concern for pulmonary edema on CXR, and no peripheral edema observed. Currently feeling dry. - reduce Lasix - monitor I&Os - monitor daily weights (6) Diabetes: Qualifiers: Diabetes mellitus type: type 2 Diabetes mellitus detention insulin use: without detention use Diabetes mellitus complication status: without complication Qualified Code(s): E11.9 - Type 2 diabetes mellitus without complications Code(s): E11.9 - Type 2 diabetes mellitus without complications Status: Chronic Assessment and Plan: History of type 2 diabetes. Glucose 155 upon admission on 05/11. - hypoglycemia protocol - POC blood glucose ACHS - not currently on diabetes medications outpatient and has been controlling it with his diet, update A1c - correct regimen ordered - moderate dose TIDWM, based off BMI (7) Hypertension: Qualifiers: Hypertension type: primary hypertension Qualified Code(s): I10 - Essential (primary) hypertension Code(s): I10 - Essential (primary) hypertension Status: Chronic Assessment and Plan: - chronic, currently 105/62. - continue metoprolol. Hold losartan as the patient's pressure is currently on the low end of normotensive, resume when appropriate. - monitor Plan patient presented with shortness of breath with history of smoking in the past is found to have pneumonia most likely CAP being treated with ceftriaxone and Zithromax, patient also has history of COPD and treated with Duo neb which patient stats his helping, will monitor, and will have PT/OT evaluate the patient, further recommendation to follow. Patient with b/l pneumonia, stats he is feeling much better compared to when he arrived, stats he is able to breath better, denies any fever or chills, he is requiring oxygen, and last he needed 4L for little while and now back to 2L/NC, on 05/14 repeat chest x-ray still showed persistent b/l pneumonia, will continue IV abx, will CPM, will do home oxygen evaluation before discharging patient home. will continue to monitor. Diet: Heart healthy GI Prophylaxis: N/a DVT Prophylaxis: Lovenox IV fluids: 100 mL/hour x1 L Lines/Tubes: Peripheral IV Code Status: Full code Subjective Date/time seen: 05/16/25 14:19 Interval history: Patient was seen during the morning rounds today. Feeling slightly better. Decreased sob, no chest pain. Patient with b/l pneumonia, stats he is feeling much better compared to when he arrived, stats he is able to breath better, denies any fever or chills, he is requiring oxygen, and last he needed 4L for little while and now back to 2L/NC, Review of Systems Review of Systems: All systems reviewed & are unremarkable except as noted in HPI and below Exam Narrative: Patient is comfortable, NAD HEENT: eyes are clear and none icteric LUNGS:CTA HEART: RR S1S2 ABD: BS+, Soft and nontender Lower extremities: no edema SKIN: nonjaundiced Neuro: grossly intact. Const: General: comfortable and no acute distress Other: , male, nontoxic appearance HENMT: Face/Nose/Sinus: Normal nares present Mouth: Yes dry mucous membranes Eyes: General: appearance normal, both eyes and all related structures Sclera: sclerae normal Pupils: Equal, round and reactive pupils present EOM: EOMs intact bilaterally Resp: Effort & Inspection: normal respiratory effort Other: crackles and diminished in the left lung base. NC in place and tolerating well. Cardio: Rate: regular rate Rhythm: regular rhythm Other: + ectopy, no murmur. GI: Other: Abdomen soft, nondistended, nontender. Normoactive bowel sounds in all quadrants. Skin: General skin exam: normal color and no rashes or lesions noted Wounds: no wounds Neuro: Cranial nerves: Yes Equal, round and reactive pupils present Speech: normal speech Motor exam (neuro): 5/5 motor strength present throughout Sensory Exam: normal sensation Other: A&O x4 Extrem: General: normal to inspection Psych: Mental Status: mental status grossly normal Affect: normal affect Other: Good insight and judgment, pleasant Objective Data Vital Signs Vital Signs: Vital Signs - 24 hr 05/15/25 14:32 05/15/25 14:38 05/15/25 20:19 Temperature Pulse Rate 92 94 95 Respiratory Rate 18 18 Blood Pressure Pulse Oximetry Oxygen Delivery Oxygen Flow Rate 05/15/25 20:23 05/15/25 20:30 05/15/25 20:35 Temperature Pulse Rate 96 98 Respiratory Rate 18 18 Blood Pressure Pulse Oximetry 95 Oxygen Delivery Nasal Cannula Oxygen Flow Rate 4 05/15/25 20:50 05/16/25 02:30 05/16/25 02:42 Temperature 36.4 C Pulse Rate 98 91 92 Respiratory Rate 20 18 18 Blood Pressure 119/51 L Pulse Oximetry 94 Oxygen Delivery Oxygen Flow Rate 05/16/25 03:43 05/16/25 05:03 05/16/25 07:45 Temperature 36.4 C Pulse Rate 87 85 Respiratory Rate 20 18 Blood Pressure 120/53 L Pulse Oximetry 95 95 Oxygen Delivery Nasal Cannula Oxygen Flow Rate 2 05/16/25 07:51 05/16/25 07:53 05/16/25 08:26 Temperature Pulse Rate 86 86 Respiratory Rate 18 Blood Pressure Pulse Oximetry 91 Oxygen Delivery Nasal Cannula Oxygen Flow Rate 4 05/16/25 08:30 05/16/25 12:00 05/16/25 12:00 Temperature Pulse Rate Respiratory Rate Blood Pressure Pulse Oximetry 91 86 L 88 L Oxygen Delivery Nasal Cannula Room Air Nasal Cannula Oxygen Flow Rate 4 2 05/16/25 12:03 05/16/25 12:30 Temperature Pulse Rate Respiratory Rate Blood Pressure Pulse Oximetry 92 95 Oxygen Delivery Nasal Cannula Nasal Cannula Oxygen Flow Rate 3 2 Intake/Output Intake/Output: Intake & Output 05/13/25 05/14/25 05/15/25 05/16/25 23:59 23:59 23:59 23:59 Intake Total 1750 2342 2520 1650 Balance 1750 2342 2520 1650 Meds/Results Medications: Active Medications Generic Name Dose Route Start Last Admin Trade Name Freq PRN Reason Stop Dose Admin Acetaminophen 650 mg 05/11/25 16:21 Acetaminophen 325 Mg Tablet PO Q4H PRN Mild Pain (1-3) or Fever Hydrocodone Bitart/Acetaminophen 1 tab 05/11/25 16:21 Hydrocodone/Acetaminophen (*Crx) 5-325 Mg Tablet PO Q4H PRN Moderate Pain (4-6) Albuterol/Ipratropium 3 ml 05/11/25 20:00 05/16/25 07:50 Ipratropium 0.5 Mg/Albuterol Sulfate 2.5 Mg (Base) Ampul.Neb 3 Ml INHALATION 3 ml Q6HRT APRIL Administration Atorvastatin Calcium 80 mg 05/11/25 21:00 05/15/25 20:19 Atorvastatin 40 Mg Tablet PO 80 mg HS APRIL Administration Bisacodyl 5 mg 05/11/25 16:21 Bisacodyl 5 Mg Tablet Ec PO DAILY PRN Constipation Clopidogrel Bisulfate 75 mg 05/12/25 09:00 05/16/25 08:26 Clopidogrel Bisulfate 75 Mg Tablet PO 75 mg DAILY APRIL Administration Dextrose 12.5 gm 05/11/25 16:22 Dextrose 50% 25 Gm/50 Ml Syringe IV PUSH PRN PRN Hypoglycemia Protocol Enoxaparin Sodium 40 mg 05/12/25 09:00 05/16/25 08:26 Enoxaparin 40 Mg/0.4 Ml Syringe SUB-Q 40 mg DAILY APRIL Administration Fluticasone Propionate 2 spray 05/15/25 09:35 05/16/25 08:26 Fluticasone Propionate 0.05% Na Spr 16 Gm Btl (*Bkc) NASAL 2 spray Q12HR APRIL Administration Furosemide 40 mg 05/12/25 09:00 05/16/25 08:27 Furosemide 40 Mg Tablet PO 40 mg BID APRIL Administration Gemfibrozil 600 mg 05/11/25 21:00 05/15/25 20:19 Gemfibrozil 600 Mg Tablet PO 600 mg HS APRIL Administration Glucagon 1 mg 05/11/25 16:22 Glucagon For Inj 1 Mg Vial IM PRN PRN Hypoglycemia Protocol Glucose 15 gm 05/11/25 16:22 Glucose Oral Gel 15 Gm Of Glucse In 37.5 Gm Tube PO PRN PRN Hypoglycemia Protocol Ceftriaxone Sodium 1 gm/ 50 mls @ 100 mls/hr 05/12/25 09:00 05/16/25 08:27 Sodium Chloride IVPB 05/17/25 09:29 100 mls/hr QAM APRIL Administration Dextrose 1,000 mls @ 100 mls/hr 05/11/25 16:22 Dextrose 5% 1,000 Ml IVPB PRN PRN Hypoglycemia Protocol Insulin Aspart 3 - 6 units 05/11/25 17:00 05/16/25 12:14 Insulin Aspart (*Bkc) 100 Units/Ml SUB-Q Not Given TIDWM APRIL Protocol Metoprolol Tartrate 25 mg 05/11/25 21:00 05/16/25 08:26 Metoprolol Tartrate 25 Mg Tablet PO 25 mg Q12HR APRIL Administration Ondansetron HCl 4 mg 05/11/25 16:21 Ondansetron Hcl Odt 4 Mg Tablet PO Q6H PRN Nausea And Vomiting Sodium Chloride 3 gm 05/11/25 21:00 05/15/25 20:19 Sodium Chloride 1 Gm Tablet PO 3 gm HS APRIL Administration Sodium Chloride 1 spray 05/16/25 12:00 Saline 0.65% Aaron Soln 44 Ml Btl NASAL Q6HR PRN Congestion Tamsulosin HCl 0.4 mg 05/11/25 21:00 05/15/25 20:19 Tamsulosin Hcl 0.4 Mg Capsule PO 0.4 mg HS APRIL Administration Radiology Results: ITS Impressions Chest X-Ray 05/14/25 13:11 Impression: Bilateral pneumonia superimposed on chronic lung disease. The findings are new compared to the previous exam Labs Labs: Laboratory Results - last 24 hr 05/15/25 05/15/25 05/16/25 16:23 20:15 05:31 WBC 5.7 RBC 2.18 L Hgb 7.6 L Hct 24.1 L MCV 110.6 H MCH 34.9 H MCHC 31.5 L RDW 15.0 H Plt Count 181 MPV 10.4 Sodium 134 L Potassium 4.0 Chloride 96 L Carbon Dioxide 29 Anion Gap 9 BUN 38 H Creatinine 1.08 Estim Creat Clear Calc 61 Estimated GFR > 60 Glucose 161 H POC Capillary Glucose 180 H 256 H Calcium 9.1 Magnesium 1.9 05/16/25 05/16/25 07:34 12:06 WBC RBC Hgb Hct MCV MCH MCHC RDW Plt Count MPV Sodium Potassium Chloride Carbon Dioxide Anion Gap BUN Creatinine Estim Creat Clear Calc Estimated GFR Glucose POC Capillary Glucose 142 H 152 H Calcium Magnesium Quality VTE Prophylaxis VTE prophylaxis: pharmacologic ordered
--- NOTE | 2025-05-16 15:36 | PCRCNOTE ---
Window of time for administration has passed. See next scheduled administration.
[2025-05-16] MEDS: PANTOPRAZOLE SOD SESQUIHYDRATE 20 MG TAB PO (17:01)
[2025-05-16] MEDS: MULTIVIT W/ IRON, MINERALS 15 ML LIQUID (*BKC) PO (17:02)
[2025-05-16] MEDS: SODIUM CHLORIDE 1 GM TABLET 3 GM PO (21:25)
[2025-05-16] MEDS: TAMSULOSIN HCL 0.4 MG CAPSULE PO (21:26)
[2025-05-16] MEDS: ATORVASTATIN 40 MG TABLET 80 MG PO (21:26)
[2025-05-17] VITALS (9 sets, daily range): BP systolic 113–144; BP diastolic 52–85; PULSE 84–890; RESP 16–20; TEMP 35.9; O2SAT 94–97
--- NOTE | 2025-05-17 00:21 | PC.NURSE ---
Addendum entered by Carolina Turcios RN 05/17/25 04:48: Note: pt's hgb downtrending to 7.6 (from 9.8 on admission on 05/12). Will relay to day shift RN Addendum entered by Carolina Turcios RN 05/17/25 04:47: 0400: per RT, at rest 3LNC , with activity 4LNC. Pt tachypneic with activity, even on 5LNC (Spo2 89-90% during ambulation to the bathroom) Original Note: 0020:Pt required 5LNC with activity (Spo2 89-90%)
[2025-05-17 07:25] LABS: Hematocrit 24.7 % (42.0-52.0); Hemoglobin 7.7 g/dL (14.0-18.0); Mean Corpuscular HGB Conc 31.2 g/dl (32-36); Mean Corpuscular Hemoglobin 34.8 pg (26-34); Mean Corpuscular Volume 111.8 fl (80-100); Platelet Count Result 199 k/mm3 (150-375); Red Blood Count 2.21 M/mm3 (4.6-6.20); White Blood Count 5.5 K/mm3 (4.5-10.0)
[2025-05-17 07:32] LABS: Anion Gap 10 mmol/L (4-12); Blood Urea Nitrogen 37 mg/dL (9-20); Calcium 9.3 mg/dL (8.4-10.2); Carbon Dioxide 30 mmol/L (22-30); Chloride 97 mmol/L (98-107); Estimated CRCL calculation 58 ml/min; Estimated Glomerular Filt Rate > 60; Glucose 162 mg/dL (65-110); Magnesium 1.9 mg/dL (1.6-2.3); Potassium 4.3 mmol/L (3.4-5.0); Sodium 137 mmol/L (137-145)
[2025-05-17] MEDS: IPRATROPIUM 0.5 MG/ALBUTEROL SULFATE 2.5 MG (BASE) AMPUL.NEB 3 ML INHALATION ×2 (07:56→13:45)
--- NOTE | 2025-05-17 08:47 | PM.DS ---
DS: Admitting Diagnosis Discharge Date 05/17/2025 Admitting Diagnosis Hypoxemia Pneumonia DS: Discharge Diagnosis Discharge Diagnosis (1) Hypoxia: Code(s): R09.02 - Hypoxemia Status: Acute Assessment and Plan: Patient is satting 100% on room air at rest. However significantly drops into the 70s and 80s with ambulating a short distance, observed by ED provider. Patient's imaging currently concerning for bilateral pneumonia as well as patient's current symptoms (i.e. Shortness of breath, cough, congestion). Patient also has underlying COPD which may be contributing. Start patient on broad-spectrum antibiotics for pneumonia. Arrange home oxygen (2) Pneumonia: Qualifiers: Pneumonia type: due to unspecified organism Laterality: bilateral Lung location: unspecified part of lung Qualified Code(s): J18.9 - Pneumonia, unspecified organism Code(s): J18.9 - Pneumonia, unspecified organism Status: Acute Assessment and Plan: CXR completed on 05/11 showed bilateral pneumonia. Patient is also experiencing shortness of breath, cough, and congestion. Potentially complicated by underlying COPD/emphysema, no previous diagnosis. - viral PCR negative on 05/11 - started on ceftriaxone and azithromycin on 05/11 - supportive care: Mucinex, Tylenol, Tessalon Perles, DuoNebs april - hypoxia noted with exertion, monitor O2 sats and will arrange home oxygen. (3) ARLETH (acute kidney injury): Code(s): N17.9 - Acute kidney failure, unspecified Status: Acute Assessment and Plan: Patient was recently seen at [facility] on 05/01. At that time there was concern for CHF exacerbation given patient's BNP was elevated. However and echo was completed which showed a preserved EF and some mild aortic stenosis. Patient's Lasix was increased from 40 mg b.i.d. to 80 mg b.i.d.. He is currently reporting that he feels dehydrated since the medication change. Upon admission the patient's creatinine was 1.54, BUN 48, GFR 45. No previous lab work available for comparison. Plan to reduce patient's Lasix back to 40 mg b.i.d. and give so transfusion of IV fluids. - reduce patient's Lasix >> 80 mg b.i.d. to 40 mg b.i.d. - started on IV fluids: LR 100 mL/hour x1 L - trend renal function - trend electrolytes, correct as needed (4) COPD (chronic obstructive pulmonary disease): Qualifiers: COPD type: emphysema Emphysema type: unspecified Qualified Code(s): J43.9 - Emphysema, unspecified Code(s): J44.9 - Chronic obstructive pulmonary disease, unspecified Status: Suspected Assessment and Plan: Has hx of smoking - 20 years, 1.5 PPD. Has not previously been diagnosed with emphysema or COPD. No significant respiratory distress or wheezing upon initial exam in the emergency department. However, patient reports improvement in his SOB with nebulizer given in the ED. - Robinson chen - will need pulmonology referral outpatient, last saw 1 years ago for low-dose CT as preventative care due to his history of smoking. would prefer not to go back to who he saw previously at [facility] - no wheezing on exam, hold on steroid course (5) (HFpEF) heart failure with preserved ejection fraction: Qualifiers: Heart failure chronicity: chronic Qualified Code(s): I50.32 - Chronic diastolic (congestive) heart failure Code(s): I50.30 - Unspecified diastolic (congestive) heart failure Status: Chronic Assessment and Plan: Recently seen at [facility] on 05/01. Echo completed at that time, obtain records. Patient currently has ARLETH, high suspicion that this is secondary to his recent up titration of his Lasix (40 mg b.i.d. to 80 mg b.i.d.). Patient appears dry on exam, no concern for pulmonary edema on CXR, and no peripheral edema observed. Currently feeling dry. - reduce Lasix - monitor I&Os - monitor daily weights (6) Diabetes: Qualifiers: Diabetes mellitus type: type 2 Diabetes mellitus penitentiary insulin use: without penitentiary use Diabetes mellitus complication status: without complication Qualified Code(s): E11.9 - Type 2 diabetes mellitus without complications Code(s): E11.9 - Type 2 diabetes mellitus without complications Status: Chronic Assessment and Plan: History of type 2 diabetes. Glucose 155 upon admission on 05/11. - hypoglycemia protocol - POC blood glucose ACHS - not currently on diabetes medications outpatient and has been controlling it with his diet, update A1c - correct regimen ordered - moderate dose TIDWM, based off BMI (7) Hypertension: Qualifiers: Hypertension type: primary hypertension Qualified Code(s): I10 - Essential (primary) hypertension Code(s): I10 - Essential (primary) hypertension Status: Chronic Assessment and Plan: - chronic, currently 105/62. - continue metoprolol. Hold losartan as the patient's pressure is currently on the low end of normotensive, resume when appropriate. - monitor Plan patient presented with shortness of breath with history of smoking in the past is found to have pneumonia most likely CAP being treated with ceftriaxone and Zithromax, patient also has history of COPD and treated with Duo neb which patient stats his helping, will monitor, and will have PT/OT evaluate the patient, further recommendation to follow. Patient with b/l pneumonia, stats he is feeling much better compared to when he arrived, stats he is able to breath better, denies any fever or chills, he is requiring oxygen, and last he needed 4L for little while and now back to 2L/NC, on 05/14 repeat chest x-ray still showed persistent b/l pneumonia, will continue IV abx, will CPM, will do home oxygen evaluation before discharging patient home. will continue to monitor. Diet: Heart healthy GI Prophylaxis: N/a DVT Prophylaxis: Lovenox IV fluids: 100 mL/hour x1 L Lines/Tubes: Peripheral IV Code Status: Full code DS: Summary Hospital Course Reason for hospitalization: Hypoxemia Pneumonia Hospital Course: 70 years old with history of multiple medical problems admitted complained having shortness of breath, patient was found to have hypoxemia and pneumonia. Patient was given IV antibiotics. Patient continued to improve with treatment. Patient not having complicated stay in the hospital. Today patient is feeling better and was discharged home stable condition. Follow-up scheduled. Status at Discharge Cognitive/behavioral status at discharge: Stable Time Spent with Patient Time attestation: Total time spent providing and/or coordinating discharge services: 30 minutes Exam Narrative: Patient is comfortable, NAD HEENT: eyes are clear and none icteric LUNGS:CTA HEART: RR S1S2 ABD: BS+, Soft and nontender Lower extremities: no edema SKIN: nonjaundiced Neuro: grossly intact. Const: General: comfortable and no acute distress Other: , male, nontoxic appearance HENMT: Face/Nose/Sinus: Normal nares present Mouth: Yes dry mucous membranes Eyes: General: appearance normal, both eyes and all related structures Sclera: sclerae normal Pupils: Equal, round and reactive pupils present EOM: EOMs intact bilaterally Resp: Effort & Inspection: normal respiratory effort Other: crackles and diminished in the left lung base. NC in place and tolerating well. Cardio: Rate: regular rate Rhythm: regular rhythm Other: + ectopy, no murmur. GI: Other: Abdomen soft, nondistended, nontender. Normoactive bowel sounds in all quadrants. Skin: General skin exam: normal color and no rashes or lesions noted Wounds: no wounds Neuro: Cranial nerves: Yes Equal, round and reactive pupils present Speech: normal speech Motor exam (neuro): 5/5 motor strength present throughout Sensory Exam: normal sensation Other: A&O x4 Extrem: General: normal to inspection Psych: Mental Status: mental status grossly normal Affect: normal affect Other: Good insight and judgment, pleasant DS: Data Data Completed and Pending Labs on day of discharge: Labs from last 24 hours 05/17/25 05/17/25 05/16/25 08:04 05:50 21:20 WBC 5.5 RBC 2.21 L Hgb 7.7 L Hct 24.7 L MCV 111.8 H MCH 34.8 H MCHC 31.2 L RDW 15.0 H Plt Count 199 MPV 10.0 Sodium 137 Potassium 4.3 Chloride 97 L Carbon Dioxide 30 Anion Gap 10 BUN 37 H Creatinine 1.14 Estim Creat Clear Calc 58 Estimated GFR > 60 Glucose 162 H POC Capillary Glucose 169 H 238 H Calcium 9.3 Magnesium 1.9 05/16/25 05/16/25 16:54 12:06 WBC RBC Hgb Hct MCV MCH MCHC RDW Plt Count MPV Sodium Potassium Chloride Carbon Dioxide Anion Gap BUN Creatinine Estim Creat Clear Calc Estimated GFR Glucose POC Capillary Glucose 168 H 152 H Calcium Magnesium Discharge Plan Discharge Attending physician on discharge: Pawel Bose Discharging Clinician: Pawel Bose Patient Disposition: Home Activity: as tolerated Diet: as tolerated Patient Instructions: Antibiotic Form Patient Language: Kazakh Stand Alone Forms: General Discharge Information Follow-up/Referrals: [place],Mamie Raman APRN [Primary Care Provider, Unknown] Discharge Medications: New bisacodyl [Laxative (bisacodyl)] 5 mg Tablet,Delayed Release (Dr/Ec) 5 mg PO DAILY PRN (Reason: Constipation) Qty: 30 0RF pantoprazole [Protonix] 20 mg Tablet,Delayed Release (Dr/Ec) 20 mg PO QAM Qty: 30 0RF ciprofloxacin HCl 250 mg tablet 250 mg PO Q12H Qty: 14 0RF Continued atorvastatin 80 mg tablet 80 mg PO HS clopidogrel 75 mg tablet 75 mg PO DAILY furosemide 40 mg tablet 80 mg PO BID losartan 100 mg tablet 100 mg PO DAILY metoprolol tartrate 25 mg tablet 25 mg PO BID tamsulosin 0.4 mg capsule 0.4 mg PO HS gemfibrozil 600 mg tablet 600 mg PO HS sodium chloride 1,000 mg tablet,soluble 3,000 mg PO HS Date of admission: 05/12/25 10:06 Primary Care Provider: [place]Mam[place] Admitting Provider: Efrain Gatica Attending physician on admission: Efrain Gatica Condition: Stable Quality VTE Prophylaxis VTE prophylaxis: pharmacologic ordered
[2025-05-17] MEDS: cefTRIAXone 1 GM in SODIUM CHLORIDE 0.9% IV 50 ML 100 ML IVPB (10:04)
[2025-05-17] MEDS: CLOPIDOGREL BISULFATE 75 MG TABLET PO (10:04)
[2025-05-17] MEDS: FLUTICASONE PROPIONATE 0.05% NA SPR 16 GM BTL (*BKC) 2 SPRAY NASAL (10:05)
[2025-05-17] MEDS: PANTOPRAZOLE SOD SESQUIHYDRATE 20 MG TAB PO (10:05)
[2025-05-17] MEDS: METOPROLOL TARTRATE 25 MG TABLET PO (10:05)
[2025-05-17] MEDS: FUROSEMIDE 40 MG TABLET PO (10:05)
[2025-05-17] MEDS: MULTIVIT W/ IRON, MINERALS 15 ML LIQUID (*BKC) PO (10:12)
--- NOTE | 2025-05-19 07:28 | P.CDI_ITS ---
CDI Query Clarification Request 1)Hypoxia has been documented Please review the clinical information below and clarify the respiratory diagnosis the patient is being treated for: * Hypoxia or hypoxemia without respiratory failure * Respiratory distress without respiratory failure * Acute respiratory failure with hypoxia * Acute respiratory failure with hypercapnia * Acute respiratory failure with hypoxia and hypercapnia * Acute on chronic respiratory failure with hypoxia * Acute on chronic respiratory failure with hypercapnia * Acute on chronic respiratory failure with hypoxia and hypercapnia * Acute respiratory distress syndrome (ARDS) * Chronic respiratory failure with hypoxia * Chronic respiratory failure with hypercapnia * Chronic respiratory failure with hypoxia and hypercapnia * Other explanation clinical findings, please specify * Unable to determine 2) Please specify status of COPD, if known. * Exacerbation of COPD * No exacerbation/stable COPD * Other * Unable to determine (1) Hypoxia: Code(s): R09.02 - Hypoxemia Status: Acute Assessment and Plan: Patient is satting 100% on room air at rest. However significantly drops into the 70s and 80s with ambulating a short distance, observed by ED provider. Patient's imaging currently concerning for bilateral pneumonia as well as patient's current symptoms (i.e. Shortness of breath, cough, congestion). Patient also has underlying COPD which may be contributing. Start patient on broad-spectrum antibiotics for pneumonia. Arrange home oxygen (2) Pneumonia: Qualifiers: Pneumonia type: due to unspecified organism Laterality: bilateral Lung location: unspecified part of lung Qualified Code(s): J18.9 - Pneumonia, unspecified organism Code(s): J18.9 - Pneumonia, unspecified organism Status: Acute Assessment and Plan: CXR completed on 05/11 showed bilateral pneumonia. Patient is also experiencing shortness of breath, cough, and congestion. Potentially complicated by underlying COPD/emphysema, no previous diagnosis. - viral PCR negative on 05/11 - started on ceftriaxone and azithromycin on 05/11 - supportive care: Mucinex, Tylenol, Tessalon Perles, DuoNebs april - hypoxia noted with exertion, monitor O2 sats and will arrange home oxygen. (3) ARLETH (acute kidney injury): Code(s): N17.9 - Acute kidney failure, unspecified Status: Acute Assessment and Plan: Patient was recently seen at [facility][1] on 05/01. At that time there was concern for CHF exacerbation given patient's BNP was elevated. However and echo was completed which showed a preserved EF and some mild aortic stenosis. Patient's Lasix was increased from 40 mg b.i.d. to 80 mg b.i.d.. He is currently reporting that he feels dehydrated since the medication change. Upon admission the patient's creatinine was 1.54, BUN 48, GFR 45. No previous lab work available for comparison. Plan to reduce patient's Lasix back to 40 mg b.i.d. and give so transfusion of IV fluids. - reduce patient's Lasix >> 80 mg b.i.d. to 40 mg b.i.d. - started on IV fluids: LR 100 mL/hour x1 L - trend renal function - trend electrolytes, correct as needed (4) COPD (chronic obstructive pulmonary disease): Qualifiers: COPD type: emphysema Emphysema type: unspecified Qualified Code(s): J43.9 - Emphysema, unspecified Code(s): J44.9 - Chronic obstructive pulmonary disease, unspecified Status: Suspected Assessment and Plan: Has hx of smoking - 20 years, 1.5 PPD. Has not previously been diagnosed with emphysema or COPD. No significant respiratory distress or wheezing upon initial exam in the emergency department. However, patient reports improvement in his SOB with nebulizer given in the ED. - [facility] - will need pulmonology referral outpatient, last saw 1 years ago for low-dose CT as preventative care due to his history of smoking. would prefer not to go back to who he saw previously at [facility] - no wheezing on exam, hold on steroid course (5) (HFpEF) heart failure with preserved ejection fraction: Qualifiers: Heart failure chronicity: chronic Qualified Code(s): I50.32 - Chronic diastolic (congestive) heart failure Code(s): I50.30 - Unspecified diastolic (congestive) heart failure Status: Chronic Assessment and Plan: Recently seen at [facility] on 05/01. Echo completed at that time, obtain records. Patient currently has ARLETH, high suspicion that this is secondary to his recent up titration of his Lasix (40 mg b.i.d. to 80 mg b.i.d.). Patient appears dry on exam, no concern for pulmonary edema on CXR, and no peripheral edema observed. Currently feeling dry. - reduce Lasix - monitor I&Os - monitor daily weights (6) Diabetes: Qualifiers: Diabetes mellitus type: type 2 Diabetes mellitus emt intermediate insulin use: without jail use Diabetes mellitus complication status: without complication Qualified Code(s): E11.9 - Type 2 diabetes mellitus without complications Code(s): E11.9 - Type 2 diabetes mellitus without complications Status: Chronic Assessment and Plan: History of type 2 diabetes. Glucose 155 upon admission on 05/11. - hypoglycemia protocol - POC blood glucose ACHS - not currently on diabetes medications outpatient and has been controlling it with his diet, update A1c - correct regimen ordered - moderate dose TIDWM, based off BMI (7) Hypertension: Qualifiers: Hypertension type: primary hypertension Qualified Code(s): I10 - Essential (primary) hypertension Code(s): I10 - Essential (primary) hypertension Status: Chronic Assessment and Plan: - chronic, currently 105/62. - continue metoprolol. Hold losartan as the patient's pressure is currently on the low end of normotensive, resume when appropriate. - monitor Plan patient presented with shortness of breath with history of smoking in the past is found to have pneumonia most likely CAP being treated with ceftriaxone and Zithromax, patient also has history of COPD and treated with Duo neb which patient stats his helping, will monitor, and will have PT/OT evaluate the patient, further recommendation to follow. Patient with b/l pneumonia, stats he is feeling much better compared to when he arrived, stats he is able to breath better, denies any fever or chills, he is requiring oxygen, and last he needed 4L for little while and now back to 2L/NC, on 05/14 repeat chest x-ray still showed persistent b/l pneumonia, will continue IV abx, will CPM, will do home oxygen evaluation before discharging patient home. will continue to monitor. <Caty Driscoll RN - Last Filed: 05/19/25 07:32> Clarified Diagnosis Clarified Diagnosis: Hypoxia or Hypoxemia without respiratory failure <Pawel Bose MD - Last Filed: 06/03/25 10:41>
== END 2025-05-17 14:27 | disposition home or self-care (01) | DRG 193 ==
LOC: ANHED 16:16 → ANH3MEDSUR 16:37
PROVIDERS: Family Medicine; Student in an Organized Health Care Education/Training Program; Admitting Provider General Practice; Emergency Provider Emergency Medicine; PCP Nurse Practitioner Family; Visit Provider Internal Medicine
DX: J18.9 Pneumonia, unspecified organism (principal); J96.21 Acute and chronic respiratory failure with hypoxia; I50.32 Chronic diastolic (congestive) heart failure; J44.0 Chronic obstructive pulmonary disease with (acute) lower respiratory infection; N17.9 Acute kidney failure, unspecified; E86.0 Dehydration; T50.1X5A Adverse effect of loop [high-ceiling] diuretics, initial encounter; I11.0 Hypertensive heart disease with heart failure; I35.0 Nonrheumatic aortic (valve) stenosis; E11.9 Type 2 diabetes mellitus without complications; E78.5 Hyperlipidemia, unspecified; I45.19 Other right bundle-branch block; I44.0 Atrioventricular block, first degree; Z20.822 Contact with and (suspected) exposure to COVID-19; Z87.891 Personal history of nicotine dependence
CPT/HCPCS: 36415; 71046; 80048; 80053; 82948; 83036; 83735; 83880; 84484; 85025; 85027; 85610; 85730; 87636; 93005; 94618; 94640; 96365; 96366; 96372; 96375; 97110; 97162; 97166; 97530; 97535; 99285; A9270; G0378; J0456; J0696; J1650; J1815; J3475; J7050; J7120

== ENCOUNTER 2025-05-31 09:53 | Emergency (ER) | payer MEDICARE, SELFPAY ==
--- NOTE | ~2025-05-31 | XR_ITS ---
Examination: XR chest 1V portable Clinical History: Productive cough Comparison: X-rays 05/14/2025 Technique: Portable AP Findings: Heart size normal. Improving but persistent scattered foci bilateral airspace disease. No acute bony abnormality. IMPRESSION: 1. Improving but persistent scattered foci bilateral airspace disease. Reviewed, dictated and finalized at location R. Y DEMONSTRATOR
--- OUTSIDE RECORDS SUMMARY | 2025-05-31 09:57 | XMS_ITS | Clinical Summary ---
Author Organization [facility] Address [address] [place] [address] Phone Care Team Providers Care Men'S Garment Fitter Name Role Phone Unavailable Primary Care Provider [...]
--- OUTSIDE RECORDS SUMMARY | 2025-05-31 09:57 | XMS_ITS | Encounter Summary ---
Author Organization [facility] Address [address] [place] [address] Phone Care Team Providers Care Applied Biology Professor Name Role Phone Unavailable Primary Care Provider Unavailabl e Encounter Details Date Type Department Care Team (Late st Contact Info) Description 08/13/2021 Hospital/ED/SNF/HH Visit [facility] [address] [place] [address] Provider, MD Shelly [address] [place] [address] Social History Tobacco Use Types Packs/Day [...]
--- OUTSIDE RECORDS SUMMARY | 2025-05-31 09:57 | XMS_ITS | Encounter Summary ---
Author Organization [facility] Address [address] [place] [address] Phone Care Team Providers Care Junior Data Analyst Name Role Phone Unavailable Primary Care Provider Unavailabl e Encounter Details Date Type Department Care Team (Late st Contact Info) Description 08/13/2021 Hospital/ED/SNF/HH Visit [facility] [address] [place] [address] Provider, MD Shelly [address] [place] [address] Social History Tobacco Use Types Packs/Day [...]
--- OUTSIDE RECORDS SUMMARY | 2025-05-31 09:58 | XMS_ITS | Encounter Summary ---
Author Organization [facility] Address [address] [place] [address] Care Team Providers Care Kiln Remover Name Role Phone Mamie Bartholomew NP Primary Care Provider Bob Pollard MD Unavailable [phone] Encounter Details Date Type Department Care Team (Latest Contact Info) Description 05/12/2025 Results Follow-Up [facility] Primary Care at [address] [address] Mamie Bartholomew NP [address] [place] [address] [address] [place] [address] Transthoracic Echo (TTE) Complete W Doppler/CF Social History Tobacco Use Types Packs/Day Years Used Date Smoking Tobacco: Former Cigarettes 2 38 0 09/15/1974 - 09/15/2012 Passive Smoke Exposure: Past Smokeless Tobacco: Never [facility] Utilities Answer Date Recorded In the past 12 months has [employer], gas, oil, or water [employer] threatened to shut off services in your home? No 07/21/2023 Social Connection and Isolation Panel Answer Date Recorded In a typical week, how many times do you talk on the phone with family, friends, or neighbors? More than three times a week 07/21/2023 How often do you get togethe r with friends or relatives? Twice a week 07/21/2023 How often do you attend [facility] or protestant services? 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
--- OUTSIDE RECORDS SUMMARY | 2025-05-31 09:58 | XMS_ITS | Encounter Summary ---
Author Organization [facility] Address [address] [place] [address] Care Team Providers Care Mechanical Integrity Engineer Name Role Phone Mamie Bartholomew NP Primary Care Provider Bob Pollard MD Unavailable Reason for Visit * Reason Onset Date Comments Medical Question/Miscellaneous 05/05/2025 Encounter Details Date Type Department Care Team (Late st Contact Info) Description 05/05/2025 Telephone [facility] Primary Care at [address] [address] Mamie Bartholomew NP [address] [place] [address] [address] [place] [address] Medical Question/Miscellaneous Social History Tobacco Use Types Packs/Day Years Used Date Smoking Tobacco: Former Cigarettes 2 38 0 09/15/1974 - 09/15/2012 Passive Smoke Exposure: Past Smokeless Tobacco: Never [facility] Utilities Answer Date Recorded In the past 12 months has [employer], gas, oil, or water company threatened [...] week 07/21/2023 How often do you attend [facility] or church services? Never 07/21/2023 Do you belong to any clubs o r organizations such as confucianism groups, unions, fraternal or athletic groups, or [...] place to sleep or slept in a [facility] (including now)? No 07/21/2023 Personal Safety Answer Date Recorded Have you ever been in or are you currently in a harmful physical or emotional relationship or is someone making you feel afraid or unsafe? 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 Gender Identity Not on file Sexual Orientation Not on file documented as of this encounter Functional Status * BP Location Answer Date of Assessment Author Left arm 05/07/2025 12:47 PM CDT Tatiana Bonilla MA * BP Location Answer Date of Assessment Author Left arm 05/07/2025 12:47 PM CDT Tatiana Bonilla MA documented as of this encounter Miscellaneous Notes * Telephone Encounter - Tatiana Bonilla MA - 05/05/2025 1:17 PM CDT See [employer] message * Telephone Encounter - Janneth Shah - 05/05/2025 8:20 AM CDT Medical Question/Miscellaneous Caller???s Concern: Patient called stating he'd like to talk to Mamie about his ER visit over weekend. Patient declined an ER follow up appointment since he has Medicare exam on Monday. Wouldn't talk to GENERATOR OPERATOR STRAIGHT BEVEL GEAR, just wanted a call from Mamie as soon as possible. Does message need to be routed? Yes-Action Needed documented in this encounter Plan of Treatment Not on file documented as of this encounter Visit Diagnoses Not on filedocumented in this encounter Care Teams Mechanical Integrity Engineer Relationship Specialty Start Date End Date Mamie Bartholomew NP [address] [place] [address] PCP - General Family Medicine 09/19/22 Bob Pollard MD [address] [place] [address] Consulting Physician Cardiovascular Disease 07/22/23 documented as of this encounter
--- OUTSIDE RECORDS SUMMARY | 2025-05-31 09:58 | XMS_ITS | Encounter Summary ---
Author Organization [facility] Address [address] [place] [address] Phone Care Team Providers Care Oil Exploration Engineer Name Role Phone Unavailable Primary Care Provider Unavailabl e Encounter Details Date Type Department Care Team (Late st Contact Info) Description 10/25/2021 Abstract [facility] [address] [place] [address] ProviderShelly MD [address] [place] [address] Social History Tobacco Use Types Packs/Day [...]
--- OUTSIDE RECORDS SUMMARY | 2025-05-31 09:59 | XMS_ITS | Encounter Summary ---
Author Organization [facility] Address [address] [place] [address] Care Team Providers Care Bilingual Office Assistant Name Role Phone Mamie Bartholomew NP Primary Care Provider Bob Pollard MD Unavailable [phone] Reason for Visit * Reason Onset Date Comments JOCELYNN Questions 05/20/2025 Encounter Details Date Type Department Care Team (Late st Contact Info) Description 05/20/2025 Telephone [facility] Primary Care at [address] [address] Mamie Bartholomew NP [address] [place] [address] JOCELYNN Questions Social History Tobacco Use Types Packs/Day Years Used Date Smoking Tobacco: Former Cigarettes 2 38 0 09/15/1974 - 09/15/2012 Passive Smoke Exposure: Past Smokeless Tobacco: Never [facility] Utilities Answer Date Recorded In the past 12 months has [employer], gas, oil, or water company threatened to [...] week 07/21/2023 How often do you attend [facility] or congregation services? Never 07/21/2023 Do you belong to any clubs o r organizations such as tenriism groups, unions, fraternal or athletic groups, or [...] place to sleep or slept in a group home (including now)? No 07/21/2023 Personal Safety Answer Date Recorded Have you ever been in or are you currently in a harmful physical or emotional relationship or is someone making you feel afraid or unsafe? Denies 05/03/2025 Sex and Gender Information Value Date Recorded Sex Assigned at Not on file Legal Sex Male 3:23 AM MAINSTREAMING FACILITATOR Gender Identity Not on file Sexual Orientation Not on file documented as of this encounter Miscellaneous Notes * Telephone Encounter - Mamie Bartholomew NP - 05/20/2025 9:33 AM CST Ideally would like in office to listen to lungs and get vitals but if pt unable to do so then videowill have to suffice. STREAMING FACILITATOR * Telephone Encounter - Lurdes Quintanilla MA - 05/20/2025 8:20 AM CST JOCELYNN Questions (Message from [facility]-Camp Dining Room Attendant): Has patient been discharged at time of call? Yes Date Admitted: 05.11 Date Discharged: 05.17 Facility Admitted To: [facility] Reason for Stay? Pneumonia If prescribed new medications, do you have any questions or concerns? no Do you have enough medication to get you to your follow-up appointment? Unknown if antibiotic Since being released do you feel better, the same, or worse? better Date of JOCELYNN Appointment: please contact patient to schedule Do you have transportation to the appointment? NO Additional Comments: since patient is on oxygen and still short of breath, he asked if JOCELYNN can be atelephone call. He was not familiar with video visits through [facility] and I was uncertain if video visit would be appropriate. Please contact patient to discuss. Does message need to be routed? Yes-Action Needed STREAMING FACILITATOR documented in this encounter Plan of Treatment Not on file documented as of this encounter Visit Diagnoses Not on filedocumented in this encounter Care Teams Bilingual Office Assistant Relationship Specialty Start Date End Date Mamie Bartholomew NP [address] [facility] [address] [place] [address] PCP - General Family Medicine 09/19/22 Bob Pollard MD [facility] [place] [address] Consulting Physician Cardiovascular Disease 07/22/23 documented as of this encounter
--- OUTSIDE RECORDS SUMMARY | 2025-05-31 09:59 | XMS_ITS | Encounter Summary ---
Author Organization [facility] Address [address] [place] [address] Care Team Providers Care Fuel Yard Operator Name Role Phone Mamie Bartholomew NP Primary Care Provider Bob Pollard MD Unavailable [phone] Encounter Details Date Type Department Care Team (Late st Contact Info) Description 05/30/2025 Orders Only [facility] Primary Care at [address] [address] Mamie Bartholomew NP [address] [place] [address] Social History Tobacco Use Types Packs/Day Years Used Date Smoking Tobacco: Former Cigarettes 2 38 0 09/15/1974 - 09/15/2012 Passive Smoke Exposure: Past Smokeless Tobacco: Never [facility] Utilities Answer Date Recorded In the past 12 months has [employer], gas, oil, or water [employer] threatened to shut off services in your home? No 07/21/2023 Social Connection and Isolation Panel Answer Date Recorded In a typical week, how many times do you talk on the phone with family, friends, or neighbors? More than three times a week 07/21/2023 How often do you get togethe r with friends or relatives? Twice a week 07/21/2023 How often do you attend [facility] or rastafarian services? Never 07/21/2023 Do you belong to any clubs o r organizations such as christianity groups, unions, fraternal or athletic groups, or [...] place to sleep or slept in a usp (including now)? No 07/21/2023 Personal Safety Answer Date Recorded Have you ever been in or are you currently in a harmful physical or emotional relationship or is someone making you feel afraid or unsafe? Denies 05/03/2025 Sex and Gender Information Value Date Recorded Sex Assigned at Not on file Legal Sex Male 3:23 AM TRAVELING REPRESENTATIVE Gender Identity Not on file Sexual Orientation Not on file documented as of this encounter Ordered Prescriptions Prescription Sig Dispense Quantity Refills Last Filled Start Date End Date levoFLOXacin (LEVAQUIN) 750 mg tablet Take 1 tablet (750 mg total) by mouth daily for 5 days 5 tablet 05/30/2025 06/04/2025 documented in this encounter Plan of Treatment Not on file documented as of this encounter Visit Diagnoses Not on filedocumented in this encounter Care Teams Fuel Yard Operator Relationship Specialty Start Date End Date Mamie Bartholomew NP [address] [facility] [address] [place] [address] PCP - General Family Medicine 09/19/22 Bob Pollard MD [address] [facility] [address] [place] [address] Consulting Physician Cardiovascular Disease 07/22/23 documented as of this encounter
--- OUTSIDE RECORDS SUMMARY | 2025-05-31 09:59 | XMS_ITS | Encounter Summary ---
Author Organization [facility] Healthcare Address [address] [place] [address] Care Team Providers Care Counter Cutter Name Role Phone Mamie Bartholomew NP Primary Care Provider Bob Pollard MD Unavailable Reason for Visit * Reason Onset Date Comments Cough 05/30/2025 Encounter Details Date Type Department Care Team (Late st Contact Info) Description 05/30/2025 Nurse Triage [facility] Medical Group Primary Care at [address] [address] Mamie Bartholomew NP [address] [place] [address] Social History Tobacco Use Types Packs/Day Years Used Date Smoking Tobacco: Former Cigarettes 2 38 0 09/15/1974 - 09/15/2012 Passive Smoke Exposure: Past Smokeless Tobacco: Never [facility] Utilities Answer Date Recorded In the past 12 months has [employer], gas, oil, or water [employer] threatened to shut off services in your home? No 07/21/2023 Social Connection and Isolation Panel Answer Date Recorded In a typical week, how many times do you talk on the phone with family, friends, or neighbors? More than three times a week 07/21/2023 How often do you get togethe r with friends or relatives? Twice a week 07/21/2023 How often do you attend [facility] or orthodox services? Never 07/21/2023 Do you belong to any clubs o r organizations such as methodist groups, unions, fraternal or athletic groups, or [...] place to sleep or slept in a detention (including now)? No 07/21/2023 Personal Safety Answer Date Recorded Have you ever been in or are you currently in a harmful physical or emotional relationship or is someone making you feel afraid or unsafe? Denies 05/03/2025 Sex and Gender Information Value Date Recorded Sex Assigned at Not on file Legal Sex Male 3:23 AM PAIN MANAGEMENT NURSE PRACTITIONER Gender Identity Not on file Sexual Orientation Not on file documented as of this encounter Miscellaneous Notes * Telephone Encounter - Kathleen Bull RN - 05/30/2025 3:29 PM PAIN MANAGEMENT NURSE PRACTITIONER Reason for Conversation Cough Background Pt reports completion of abx pneumonia yesterday. Pt keeps stating he has a fever but he has not taken his temp. Pt reports sinus congestion, sinus pressure starting today as well as swelling to the sinuses. Pt is addiment that he did not get long enough prescription for an abx. Pt able to speak infull sentences, denies sob. No office appointemnt available, declines [facility] appointment. Pt agrees to appointment with [facility]. Pt able to use MyChart and video chat, instructed to complete e check-in and join video visit 15 minutes prior to appointment. Pt verbalized understanding. Advised pt to call back with new or worsening symptoms. Encouraged hydration, rest, safe dosages for tylenol and ibuprofen provided. No office appointemnt available, declines CC appointment. Pt agrees to appointment with [facility]. Pt able to use MyChart and video chat, instructed to complete e check- in and join video visit 15 minutes prior to appointment. Ptverbalized understanding. Advised pt to call back with new or worsening symptoms. Disposition Go to Office Now Reason for Disposition Redness or swelling on the cheek, forehead, or around the eye No Initial Assessment on file. No Additional Information on file. Protocols Used Sinus Pain or [id number] MANAGEMENT NURSE PRACTITIONER * Telephone Encounter - Kathleen Bull RN - 05/30/2025 3:24 PM PAIN MANAGEMENT NURSE PRACTITIONER Regarding: Pneumonia with fever. Breathing trouble. Short of breath (On Oxygen) ----- Message from Janeth Fowler sent at 05/30/2025 3:22 PM PAIN MANAGEMENT NURSE PRACTITIONER ----- Symptom Based Call Chief Complaint(s): Pneumonia with fever. Breathing trouble. Short of breath (On Oxygen) Duration: 2 weeks What type of symptom(s) is the patient experiencing? Red Flag. Is the patient concerned they are experiencing a medical emergency requiring an ambulance? No Additional Comments: The patient has left messages about his condition and has not heard back. He was in the hospital for pneumonia. When he got out COW WASHER [place] prescribed 3 more days of Cipro. He finished it 05.28.25. Yesterday his fever came back and he is still having trouble breathing and does not think the pneumonia has subsided. He is requesting more antibiotic. Sending as a red flag due to worsening symptoms and trouble breathing. Does message need to be routed? Yes-Action Needed MANAGEMENT NURSE PRACTITIONER documented in this encounter Plan of Treatment Not on file documented as of this encounter Visit Diagnoses Not on filedocumented in this encounter Care Teams Counter Cutter Relationship Specialty Start Date End Date Mamie Bartholomew NP [address] [facility] [address] [place] [address] PCP - General Family Medicine 09/19/22 Bob Pollard MD [address] [facility] [address] [place] [address] Consulting Physician Cardiovascular Disease 07/22/23 documented as of this encounter
--- OUTSIDE RECORDS SUMMARY | 2025-05-31 10:00 | XMS_ITS | Encounter Summary ---
Author Organization [facility] Healthcare Address [address] [place] [address] Care Team Providers Care Animal Care Service Worker Name Role Phone Mamie Bartholomew NP Primary Care Provider [phone] Bob Pollard MD Unavailable [phone] Encounter Details Date Type Department Care Team (Late st Contact Info) Description 05/30/2025 Telephone [facility] Home Care Services [address] [place] [address] Geetha Mayer RN Social History Tobacco Use Types Packs/Day Years Used Date Smoking Tobacco: Former Cigarettes 2 38 0 09/15/1974 - 09/15/2012 Passive Smoke Exposure: Past Smokeless Tobacco: Never [facility] Utilities Answer Date Recorded In the past 12 months has [employer], gas, oil, or water company threatened [...] often do you attend chur ch or buddhist services? 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 I informed her of patient's projected [facility] SOC 06/02/2025. I requested approval for SOC. Mamie responded immediately approving SOC. E AND SKIP CAR OPERATOR documented in this encounter Plan of Treatment Not on file documented as of this encounter Visit Diagnoses Not on filedocumented in this encounter Care Teams Animal Care Service Worker Relationship Specialty Start Date End Date Mamie Bartholomew NP [address] [place] [address] PCP - General Family Medicine 09/19/22 Bob Pollard MD [address] [place] [address] Consulting Physician Cardiovascular Disease 07/22/23 documented as of this encounter
--- OUTSIDE RECORDS SUMMARY | 2025-05-31 10:00 | XMS_ITS | Encounter Summary ---
Author Organization [facility] Healthcare Address [address] [place] [address] Care Team Providers Care Custodial Aide Name Role Phone Mamie Bartholomew NP Primary Care Provider Bob Pollard MD Unavailable [phone] Reason for Visit * Reason Onset Date Comments Medical Question/Miscellaneous 05/30/2025 Encounter Details Date Type Department Care Team (Late st Contact Info) Description 05/30/2025 Telephone [facility] Medical Group Primary Care at [address] [address] Mamie Bartholomew NP [address] [place] [address] [address] [place] [address] Medical Question/Miscellaneous Social History Tobacco Use Types Packs/Day Years Used Date Smoking Tobacco: Former Cigarettes 2 38 0 09/15/1974 - 09/15/2012 Passive Smoke Exposure: Past Smokeless Tobacco: Never [facility] Utilities Answer Date Recorded In the past 12 months has [employer], gas, oil, or water company threatened [...] week 07/21/2023 How often do you attend [facility] or christian services? Never 07/21/2023 Do you belong to [...] place to sleep or slept in a nursing home (including now)? No 07/21/2023 Personal Safety Answer Date Recorded Have you ever been in or are you currently in a harmful physical or emotional relationship or is someone making you feel afraid or unsafe? 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 He says it is urgent that he gets more antibiotics. Patient wanted to make sure that I sent the message right to Mamie. Therefore I will send this message as HP. Please advise and thank you so much. Does message need to be routed? Yes-Action Needed ENTIONAL MACHINIST documented in this encounter Plan of Treatment Not on file documented as of this encounter Visit Diagnoses Not on filedocumented in this encounter Care Teams Custodial Aide Relationship Specialty Start Date End Date Mamie Bartholomew NP [address] [facility] [address] [place] [address] PCP - General Family Medicine 09/19/22 Bob Pollard MD [address] [facility] [address] [place] [address] Consulting Physician Cardiovascular Disease 07/22/23 documented as of this encounter
--- OUTSIDE RECORDS SUMMARY | 2025-05-31 10:00 | XMS_ITS | Encounter Summary ---
Author Organization [facility] Healthcare Address [address] [place] [address] Care Team Providers Care Heavy Equipment Sales Manager Name Role Phone Mamie Bartholomew NP Primary Care Provider Bob Pollard MD Unavailable [phone] Reason for Visit * Reason Onset Date Comments Medical Question/Miscellaneous 05/28/2025 Encounter Details Date Type Department Care Team (Late st Contact Info) Description 05/28/2025 Telephone [facility] Medical Group Primary Care at [address] [address] Mamie Bartholomew NP [address] [place] [address] [address] [place] [address] Medical Question/Miscellaneous Social History Tobacco Use Types Packs/Day Years Used Date Smoking Tobacco: Former Cigarettes 2 38 0 09/15/1974 - 09/15/2012 Passive Smoke Exposure: Past Smokeless Tobacco: Never [facility] Utilities Answer Date Recorded In the past 12 months has [employer], gas, oil, or water company threatened [...] week 07/21/2023 How often do you attend [facility] or taoist services? Never 07/21/2023 Do you belong to any clubs o r organizations such as catholic groups, unions, fraternal or athletic groups, [...] place to sleep or slept in a skilled nursing (including now)? No 07/21/2023 Personal Safety Answer Date Recorded Have you ever been in or are you currently in a harmful physical or emotional relationship or is someone making you feel afraid or unsafe? 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 She will get towork on processing his orders. Does message need to be routed? Yes-FYI Only D KILN DRAWER * Telephone Encounter - Mamie Bartholomew NP - 05/29/2025 4:53 PM CST I last saw him on 05/21 with that diagnosis? D KILN DRAWER * Telephone Encounter - Kika Mcgrath - 05/28/2025 3:33 PM CST Medical Question/Miscellaneous Caller???s Concern: Geetha with [facility] Home [facility] calling in to relay that they received a referral. However she stated his last office visit (05/07)and the diagnosis do not match. She stated that they cannot use the telemedicine visit. She stated that he will need a face to face visit before they can see him. She relayed that she will keep the referral open for a bit if he can get scheduled or they can close this and a new one can be sent. Please advise. Does message need to be routed? Yes-Action Needed D KILN DRAWER documented in this encounter Plan of Treatment Not on file documented as of this encounter Visit Diagnoses Not on filedocumented in this encounter Care Teams Heavy Equipment Sales Manager Relationship Specialty Start Date End Date Mamie Bartholomew NP [address] [place] [address] PCP - General Family Medicine 09/19/22 Bob Pollard MD [address] [place] [address] Consulting Physician Cardiovascular Disease 07/22/23 documented as of this encounter
--- OUTSIDE RECORDS SUMMARY | 2025-05-31 10:00 | XMS_ITS | Encounter Summary ---
Author Organization [facility] Healthcare Address [address] [place] [address] Care Team Providers Care Acute Dialysis Nurse Name Role Phone Mamie Bartholomew NP Primary Care Provider [phone] Bob Pollard MD Unavailable [phone] Encounter Details Date Type Department Care Team (Late st Contact Info) Description 05/30/2025 Telephone [facility] Home Care Services [address] [facility] [address] [place] [address] Geetha Mayer RN Social History Tobacco Use Types Packs/Day Years Used Date Smoking Tobacco: Former Cigarettes 2 38 0 09/15/1974 - 09/15/2012 Passive Smoke Exposure: Past Smokeless Tobacco: Never [facility] Utilities Answer Date Recorded In the past 12 months has [employer], gas, oil, or water company threatened [...] often do you attend chur ch or sikh services? Never 07/21/2023 Do you belong to any clubs o r organizations such as jainism groups, unions, fraternal or athletic groups, or [...] place to sleep or slept in a halfway (including now)? No 07/21/2023 Personal Safety Answer Date Recorded Have you ever been in or are you currently in a harmful physical or emotional relationship or is someone making you feel afraid or unsafe? 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 I informed her that [facility] received alegislative update yesterday extending the use of telemedine visits for face to face encounters through July 2025. I stated I would finish processing patient's referral and get back with them. ER TENDER documented in this encounter Plan of Treatment Not on file documented as of this encounter Visit Diagnoses Not on filedocumented in this encounter Care Teams Acute Dialysis Nurse Relationship Specialty Start Date End Date Mamie Bartholomew NP [address] [place] [address] PCP - General Family Medicine 09/19/22 Bob Pollard MD [address] [place] [address] Consulting Physician Cardiovascular Disease 07/22/23 documented as of this encounter
--- OUTSIDE RECORDS SUMMARY | 2025-05-31 10:00 | XMS_ITS | Encounter Summary ---
Author Organization [facility] Healthcare Address [address] [place] [address] Care Team Providers Care Mandarin Tutor Name Role Phone Mamie Bartholomew NP Primary Care Provider [phone] Bob Pollard MD Unavailable [phone] Encounter Details Date Type Department Care Team (Late st Contact Info) Description 05/30/2025 Telephone [facility] Home Care Services [address] [place] [address] Geetha Mayer RN Social History Tobacco Use Types Packs/Day Years Used Date Smoking Tobacco: Former Cigarettes 2 38 0 09/15/1974 - 09/15/2012 Passive Smoke Exposure: Past Smokeless Tobacco: Never [facility] Utilities Answer Date Recorded In the past 12 months has [employer], gas, oil, or water company threatened [...] often do you attend chur ch or amish services? 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 Spoke with patient. Interview completed. Discussed [facility] services. Confirmed homebound status. Informed patient that staff will be calling closer to Monday regarding an appointment. Patient in agreement with services and confirmed he currently has private paid nursing services through [facility] but is getting ready to discontinue their services. FURNACE OPERATOR documented in this encounter Plan of Treatment Not on file documented as of this encounter Visit Diagnoses Not on filedocumented in this encounter Care Teams Mandarin Tutor Relationship Specialty Start Date End Date Mamie Bartholomew NP [address] [facility] [address] [place] [address] PCP - General Family Medicine 09/19/22 Bob Pollard MD [address] [facility] [address] [place] [address] Consulting Physician Cardiovascular Disease 07/22/23 documented as of this encounter
--- OUTSIDE RECORDS SUMMARY | 2025-05-31 10:01 | XMS_ITS | Encounter Summary ---
Author Organization [facility] Healthcare Address [address] [place] [address] Care Team Providers Care Automotive Glass Technician Name Role Phone Mamie Bartholomew NP Primary Care Provider Bob Pollard MD Unavailable [phone] Reason for Visit * Reason Onset Date Comments Medication Request 05/09/2025 Encounter Details Date Type Department Care Team (Late st Contact Info) Description 05/09/2025 Telephone [facility] Medical Group Primary Care at [address] [address] Mamie Bartholomew NP [address] [place] [address] Medication Request Social History Tobacco Use Types Packs/Day Years Used Date Smoking Tobacco: Former Cigarettes 2 38 0 09/15/1974 - 09/15/2012 Passive Smoke Exposure: Past Smokeless Tobacco: Never [facility] Utilities Answer Date Recorded In the past 12 months has [employer], gas, oil, or water company threatened to [...] How often do you attend [facility] or worship services? Never 07/21/2023 Do you belong to any clubs o r organizations such as adventism groups, unions, fraternal or athletic groups, or [...] place to sleep or slept in a half-way (including now)? No 07/21/2023 Personal Safety Answer Date Recorded Have you ever been in or are you currently in a harmful physical or emotional relationship or is someone making you feel afraid or unsafe? 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 Yes-Action Needed documented in this encounter Plan of Treatment Not on file documented as of this encounter Visit Diagnoses Not on filedocumented in this encounter Care Teams Automotive Glass Technician Relationship Specialty Start Date End Date Mamie Bartholomew NP [address] [place] [address] PCP - General Family Medicine 09/19/22 Bob Pollard MD [address] [address] Consulting Physician Cardiovascular Disease 07/22/23 documented as of this encounter
--- OUTSIDE RECORDS SUMMARY | 2025-05-31 10:01 | XMS_ITS | Encounter Summary ---
Author Organization [facility] Healthcare Address [address] [place] [address] Care Team Providers Care Form Setter Name Role Phone Mamie Bartholomew NP Primary Care Provider [phone] Bob Pollard MD Unavailable [phone] Encounter Details Date Type Department Care Team (Late st Contact Info) Description 05/08/2025 Results Follow-Up [facility] Medical Group Primary Care at [address] [address] Mamie Bartholomew NP [address] [place] [address] [address] [place] [address] Ferritin, Iron level, Lipid panel, Additional followed-up results: 4 Social History Tobacco Use Types Packs/Day Years Used Date Smoking Tobacco: Former Cigarettes 2 38 0 09/15/1974 - 09/15/2012 Passive Smoke Exposure: Past Smokeless Tobacco: Never [facility] Utilities Answer Date Recorded In the past 12 months has [employer], gas, oil, or water company threatened to [...] How often do you attend [facility] or taoism services? Never 07/21/2023 Do you belong to [...] place to sleep or slept in a fpc (including now)? No 07/21/2023 Personal Safety Answer Date Recorded Have you ever been in or are you currently in a harmful physical or emotional relationship or is someone making you feel afraid or unsafe? 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 Please advise withpatient by phone to discuss. Does message need to be routed? Yes-Action Needed JEEPER documented in this encounter Plan of Treatment Scheduled Orders [...] chemistry documented in this encounter Care Teams Form Setter Relationship Specialty Start Date End Date Mamie Bartholomew NP [address] [place] [address] PCP - General Family Medicine 09/19/22 Bob Pollard MD [address] [place] [address] Consulting Physician Cardiovascular Disease 07/22/23 documented as of this encounter
--- OUTSIDE RECORDS SUMMARY | 2025-05-31 10:02 | XMS_ITS | Clinical Summary ---
Author Organization [address] Address [address] [place] [phone] Care Team Providers Care Inserter Name Role Phone Juliana Hannah NP Primary Care Provider [phone] Bob Pollard MD Unavailable [phone] Allergies Active Allergy Reactions Criticality Noted Date Comments Phenobarbital Other (See comments) Medium 07/16/2012 Mother said had reaction as small child. Hyperactivity per mother. Medications iron-vit C-vit B29-gahxv acid (Iron 100 Plus) [phone] dg-pk-nva-mg tablet Take one tablet daily 90 tablet [...] total) by mouth daily 90 capsule 1 Active metoprolol tartrate (LOPRESSOR) 25 mg immediate [...] (two) times a day 360 tablet 1 Active ipratropium-albut Jalen (COMBIVENT RESPIMAT) 20-100 mcg/actuation inhalerIndication s:Chronic Obstructive Pulmonary Disease with Bronchospasms Inhale 1 puff 4 (four) times a day as needed for wheezing or shortness of breath 12 g 1 Active albuterol HFA (PROVENTIL HFA,VENTOLIN HFA,PROAIR HFA) 90 mcg/actuation inhaler Inhale 2 puffs every 6 (six) hours as needed for wheezing 1 each [address] (PROTONIX) 20 mg EC tablet Take 1 tablet (20 mg total) by mouth daily Active bisacodyl EC (DULCOLAX EC) 5 mg EC tabletIndications :constipation Take 1 tablet (5 mg total) by mouth daily as needed for constipation Active levoFLOXacin (LEVAQUIN) 750 mg tablet Take 1 tablet (750 mg total) by mouth daily for 5 days 5 tablet 025 2024 Active aspirin 81 mg enteric coated tablet [...] (two) times a day 180 tablet 1 025 2024 Discontinued(A lternate therapy) gemfibroziL (LOPID) 600 mg tabletIndications :Hyperlipidemia, unspecified hyperlipidemia type Take 1 tablet (600 mg total) by mouth daily 90 tablet 1 025 2024 Discontinued(R eorder) losartan (COZAAR) 100 mg tabletIndications :Benign hypertension Take 1 tablet (100 mg total) by mouth daily 90 tablet 1 025 2024 Discontinued(R eorder) tamsulosin (FLOMAX) 0.4 mg extended release capsuleIndication s:Benign prostatic hyperplasia with weak urinary stream Take 1 capsule (0.4 mg total) by mouth daily 90 capsule 1 025 2024 Discontinued(R eorder) furosemide (LASIX) 40 mg tabletIndications :Shortness of breath Take 2 tablets (80 mg total) by mouth 2 (two) times a day 120 tablet 11 025 2024 Discontinued(R eorder) empagliflozin (JARDIANCE) 10 mg tablet Take 1 tablet (10 mg total) by mouth daily 90 tablet 1 025 2024 Discontinued dapagliflozin propanediol (FARXIGA) 10 mg tablet Take 1 tablet (10 mg total) by mouth daily 90 tablet 1 025 2024 Discontinued furosemide (LASIX) 40 mg tabletIndications :Shortness of breath Take 2 tablets (80 mg total) by mouth 2 (two) times a day 120 tablet 11 025 2024 Discontinued(R eorder) ciprofloxacin (CIPRO) 250 mg tablet Take 1 tablet (250 mg total) by mouth 2 (two) times a day for 3 days 6 tablet 2024 Active Problems Problem Noted Date Diagnosed Date [...] ordered/arranged unless otherwise indicated. Pulmonary fibrosis 07/21/2023 Assessment & Plan (05/22/2025 12:10 PM EDGING MACHINE OPERATOR): Pt has seen Pulmonology in the past for this, pt declines seeing them again Heart failure, unspecified H F chronicity, unspecified heart failure type 07/20/2023 Assessment & Plan (05/22/2025 12:08 PM EDGING MACHINE OPERATOR): Recheck electrolytes in 1 month with pt's repeat CXR. Assessment & Plan (05/08/2025 1:16 PM CDT): Patient scheduled for ECHO 05/09 at [facility]. Our location in [place] is more convenient for him. Will touch base with his Film Cutter to switch order location. Continuing Furosemide as [...] 02/22/24. Assessment & Plan (07/28/2023 10:34 AM EDGING MACHINE OPERATOR): Continuing the Lasix 40 mg BID. Education provided on s/s to be mindful of and fluid restriction/intake. Discussed leg elevation 3x/daily above heart for at least 15-20 min each. Rechecking electrolytes when we recheck blood count in 4 weeks. CVA (cerebral vascular accident) 09/19/2022 Assessment & Plan (09/21/2022 11:53 AM EDGING MACHINE OPERATOR): Per patient, he had some form of [...] co-morbidities. Assessment & Plan (08/07/2024 1:35 PM EDGING MACHINE OPERATOR): Stable overall, updated labs ordered. Assessment & Plan (02/05/2024 12:30 PM CDT): Updated labs ordered. Assessment & Plan (07/28/2023 10:35 AM EDGING MACHINE OPERATOR): A1c 5.0% in hospital, no medications at this time. Hyperlipidemia 09/19/2022 Assessment & Plan (08/07/2024 1:35 PM EDGING MACHINE OPERATOR): Continues Gemfibrozil and Lipitor Denies side effects Refills provided, labs ordered Assessment & Plan (09/21/2022 11:51 AM EDGING MACHINE OPERATOR): Continues Gemfibrozil and Lipitor Denies side effects Refills provided, labs ordered Benign hypertension 09/19/2022 Assessment & Plan (08/07/2024 1:35 PM EDGING MACHINE OPERATOR): BP stable in office Continues Losartan, refill provided. Labs ordered Assessment & Plan (09/21/2022 11:54 AM EDGING MACHINE OPERATOR): BP stable in office Continues Losartan, refill provided. Labs ordered Hyponatremia 09/19/2022 Assessment & Plan (09/21/2022 11:50 AM EDGING MACHINE OPERATOR): Continues Sodium Chloride tablets. Refills provided. Labs ordered. BPH (benign prostatic hyperplasia) 09/19/2022 Assessment & Plan (08/07/2024 1:35 PM EDGING MACHINE OPERATOR): Sx stable Continues Tamsulosin, refill provided. Assessment & Plan (09/21/2022 11:53 AM EDGING MACHINE OPERATOR): Sx stable Continues Tamsulosin, refill provided Has a Urologist. Iron deficiency anemia 09/19/2022 Assessment & Plan (07/28/2023 10:35 AM EDGING MACHINE OPERATOR): Sending in iron supplement, rechecking blood count in 4 weeks. Recurrent unilateral inguinal hernia 09/19/2022 Encounters Date Type Department Care Team Description 05/30/2025 Orders Only [facility] Primary Care at [address] [phone] Juliana Hannah, [employer] 05/30/2025 Nurse Triage [facility] Primary Care at [address] [phone] Juliana Hannah, [employer] 05/30/2025 Telephone [facility] Primary Care at [address] [phone] Juliana Hannah, [employer] Medical Question/Miscellaneo us 05/30/2025 Telephone [facility] [address] [place] [address] [place] [phone] Geetha Mayer, RN 05/30/2025 Telephone [facility] [address] [place] [address] [place] [phone] Geetha Mayer, RN 05/30/2025 Telephone [facility] [address] [place] [address] [place] [phone] Geetha Mayer, RN 05/28/2025 Telephone [facility] Primary Care at [address] [phone] Juliana Hannah, [employer] Medical Question/Miscellaneo us 05/28/2025 Telephone [facility] [address] [place] [address] [place] [phone] Geetha Mayer, RN 05/21/2025 2:30 PM EDGING MACHINE OPERATOR Telemedicine [facility] Primary Care at [address] [phone] Juliana Hannah, [employer] Pneumonia of both lungs due to infectious organism, unspecified part of lung (Primary Dx); Heart failure, unspecified HF chronicity, unspecified heart failure type (HCC); Pulmonary fibrosis 05/21/2025 Nurse Triage [facility] Primary Care at [address] [phone] Juliana Hannah, [employer] 05/20/2025 Telephone [facility] Primary Care at [address] [phone] Juliana Hannah, DANISHA JOCELYNN Questions 05/12/2025 Orders Only [facility] Primary Care at [address] [phone] ProviderShelly MD 05/12/2025 Telephone [facility] Primary Care at [address] [phone] Juliana Hannah, DANISHA Medical Question/Miscellaneo us 05/12/2025 Results Follow-Up [facility] Primary Care at [address] [phone] Juliana Hannah, DANISHA Transthoracic Echo (TTE) Complete W Doppler/CF 05/09/2025 3:00 PM CDT Ancillary Procedure [facility] Medical [facility] Cardiology at [address] [phone] Rapid heart beat; Heart failure, unspecified HF chronicity, unspecified heart failure type (HCC) 05/09/2025 Orders Only [facility] Medical [facility] Primary Care at [address] [phone] Juliana Hannah, [employer] Shortness of breath 05/09/2025 Telephone [facility] Primary Care at [address] [phone] Juliana Hannah, DANISHA Medication Request 05/08/2025 Results Follow-Up [facility] Primary Care at [address] [phone] Juliana Hannah, DANISHA Ferritin, Iron level, Lipid panel, Additional followed-up results: 4 05/08/2025 Telephone [facility] Group Primary Care at [address] [phone] Juliana Hannah, [employer] 05/08/2025 Telephone [facility] Medical [facility] Cardiology at [address] [phone] Unknown, Notinfile 05/07/2025 1:40 PM CDT Lab [address] [address] Other iron deficiency anemia; Type 2 diabetes mellitus with other specified complication, without long-term current use of insulin; B12 deficiency 05/07/2025 1:25 PM CDT Lab [address] [address] Shortness of breath 05/07/2025 12:30 PM CDT Office Visit [facility] Medical [facility] Primary Care at [address] [phone] Juliana Hannah NP Type 2 diabetes mellitus with other specified complication, without long-term current use of insulin (Primary Dx); Other iron deficiency anemia; B12 deficiency; Heart failure, unspecified HF chronicity, unspecified heart failure type (HCC); Need for vaccination 05/07/2025 Orders Only [facility] at [address] [phone] Cosme Spivey NP 05/05/2025 JOCELYNN ED Outreach [facility] Accountable Care Organization [address] [place] [address] Nanda Amos MA 05/05/2025 Orders Only [facility] at [address] [phone] Cosme Spivey NP Shortness of breath (Primary Dx) 05/05/2025 Orders Only [facility] [id number] [address] Cosme Spivey NP 05/05/2025 Telephone [facility] at [address] [place] [phone] Cosme Spivey NP 05/05/2025 Telephone [facility] Primary Care at [address] [phone] Juliana Hannah NP Medical Question/Miscellaneo us 05/03/2025 5:05 PM CDT - 05/03/2025 6:30 PM CDT Emergency [facility] Emergency Department [address] [place] [address] Nicholas Eason MD Mild congestive heart failure [...] Tobacco: Never Tobacco Cessation:Counseling Given: Not Answered [facility] Utilities Answer Date Recorded In the [...] often do you attend chur ch or anglican services? Never 07/21/2023 Do you belong to any clubs o r organizations such as temple groups, unions, fraternal or athletic groups, or [...] place to sleep or slept in a assisted (including now)? No 07/21/2023 Personal Safety Answer Date Recorded Have you ever been in or are you currently in a harmful physical or emotional relationship or is someone making you feel afraid or unsafe? Denies 05/03/2025 Sex and Gender Information Value Date Recorded Sex Assigned at Not on file Legal Sex Male 3:23 AM EDGING MACHINE OPERATOR Gender Identity Not on file Sexual Orientation Not on file Last Filed Vital Signs Vital Sign Reading [...] Well Visit 65+ 02/04/2025 02/05/2024, 03/17, 03/28/2022 Covid-19 Vaccine (2024-2 6 season) 2025 10/30/2024, 04/02/2024, 05/22/2023, Additional history exists Lung Cancer Screening 05/03/2026 05/03/2025 , 01/10/2024, [...] 01/03/2024 Prostate Cancer Screening-PSA Discontinued 08/07/2024, 09/15/2021 Hemoglobin A1C Discontinued 05/07/2025, 07/18, 02/05/2024, Additional history exists Influenza Vaccine Completed 05/07/2025, , 03/18/2024, Additional history exists Albumin Creatinine Ratio, Urine Discontinued Foot Exam Discontinued Procedures Procedure Name Priority Date/Time Associated Diagnosis Comments XR CHEST 2 VIEWS W APICAL LORDOTIC 3 VIEWS Schedule Routine, Read Routine (OP Routine) 05/11/2025 1:45 PM CDT TRANSTHORACIC ECHO (TTE) COMPLETE W DOPPLER/CF W [...] screening PSA SCREEN Routine 08/07/2024 1:40 PM EDGING MACHINE OPERATOR Screening PSA (prostate specific antigen) CT LUNG [...] Recently Relevant to Health Maintenance Results * XR Chest 2 Views W Apical Lordotic 3 Views (05/11/2025 1:45 PM CDT) Anatomical Region Laterality Modality Body, Chest N/A Radiographic Morelia ging us Historical Provider MD HILL XR PROCEDURES Final R esult * TRANSTHORACIC ECHO (TTE) COMPLETE W DOPPLER/CF W CONTRAST (05/09/2025 4:02 PM CDT) Estimated EF 65-70 % CONS SCIMAGE EF Mod BP 68 % CONS SCIMAGE Anatomical Region Laterality Modality Ultrasound 05/09/2025 3:07 PM CDT Narrative 05/09/2025 4:31 PM CDT [facility] Medical Group Cardiology [address] [facility], [address], [place] [address] P:[phone] P:[phone] Echocardiographic Report Patient Name: RUDOLPH BOYD K : 1955 Study Date: 05/09/2025 3:07:18 PM Sex: M Shear Helper: BERNA Location: [facility] Ref Provider: JULIANA HANNAH [...] FINDINGS: Interpretation Site: Exam was interpreted at [facility]. Left Ventricle: Normal left ventricular systolic function. [...] Procedure Note Miki Montgomery MD - 05/09/2025 [facility] Medical Group Cardiology [address] [facility], [address], [place] [address] P:[phone] P:[phone] Echocardiographic Report Patient Name: RUDOLPH BOYD K : 1955 Study Date: 05/09/2025 3:07:18 PM Sex: M Shear Helper: BERNA Location: [facility] Ref Provider: JULIANA HANNAH [...] FINDINGS: Interpretation Site: Exam was interpreted at [facility]. Left Ventricle: Normal left ventricular systolic function. [...] (ABNORMAL) Differential, auto (05/07/2025 1:47 PM CDT) Pathologist [facility] Neutrophil abs 6.55(H) 1.50 - 6.50 K/cumm Imm gran abs 0.05 0.00 - 0.10 K/cumm [facility] Lymphocyte abs 0.88 0.80 - 3.30 K/cumm [facility] Monocyte abs 1.28(H) 0.20 - 0.80 K/cumm [facility] Eosinophil abs 0.07 0.00 - 0.50 K/cumm [facility] Basophil abs 0.04 0.00 - 0.10 K/cumm [facility] Neutrophil pct 73.8 % [facility] Comment: Interpretive Data Percent cell count reference ranges are not reported, since discordance with absolute values may lead to misinterpretation of CBC data. Current Interpretive Data was last revised on 2017. Imm gran pct 0.6 % [facility] Comment: Interpretive Data Percent cell count reference ranges are not reported, since discordance with absolute values may lead to misinterpretation of CBC data. Current Interpretive Data was last revised on 2017. Lymphocyte pct 9.9 % [facility] Comment: Interpretive Data Percent cell count reference ranges are not reported, since discordance with absolute values may lead to misinterpretation of CBC data. Current Interpretive Data was last revised on 2017. Monocyte pct 14.4 % [facility] Comment: Interpretive Data Percent cell count reference ranges are not reported, since discordance with absolute values may lead to misinterpretation of CBC data. Current Interpretive Data was last revised on 2017. Eosinophil pct 0.8 % [facility] Comment: Interpretive Data Percent cell count reference ranges are not reported, since discordance with absolute values may lead to misinterpretation of CBC data. Current Interpretive Data was last revised on 2017. Basophil pct 0.5 % [facility] Comment: Interpretive Data Percent cell count reference ranges are not reported, since discordance with absolute values may lead to misinterpretation of CBC data. Current Interpretive Data was last revised on 2017. Blood 05/07/2025 1:47 PM CDT 05/07/2025 6:19 PM CDT Juliana Hannah NP LAB BLOOD ORDERABLES Final Resul t [facility] [address] [facility] Department of Laboratories [place], [place] [id number] * (ABNORMAL) CBC with auto differential (05/07/2025 1:47 PM CDT) Pathologist [facility] WBC 8.87 3.80 - 9.90 K/cumm Hgb 10.2(L) 13.0 - 17.5 g/dL [facility] Hct 32.2(L) 38.9 - 50.3 % [facility] Plt 194 150 - 400 K/cumm [facility] MPV 10.8 9.1 - 12.3 fL [facility] RBC 2.84(L) 4.30 - 5.80 M/cumm [facility] MCV 113.4(H) 81.3 - 96.4 fL [facility] MCH 35.9(H) 27.1 - 33.3 pg [facility] MCHC 31.7(L) 32.3 - 35.7 g/dL [facility] RDW CV 15.1(H) 11.1 - 14.9 % [facility] RDW SD 62.8(H) 35.7 - 48.1 fL [facility] NRBC abs 0.00 0.00 - 0.01 K/cumm [facility] Blood 05/07/2025 1:47 PM CDT 05/07/2025 6:19 PM CDT us Juliana Hannah [employer] LAB BLOOD ORDERABLES Final Resul t Performing Organization Address City/[facility] de Phone Number [address] [place] [address] * (ABNORMAL) Iron level (05/07/2025 1:47 PM CDT) Pathologist [facility] Iron 38(L) 50 - 150 mcg/dL Blood 05/07/2025 1:47 PM CDT 05/07/2025 6:19 PM CDT us Juliana Hannah [employer] LAB BLOOD ORDERABLES Final Resul t Performing Organization Address [facility] de Phone Number [address] [address] * (ABNORMAL) Hemoglobin A1c (05/07/2025 1:47 PM CDT) Hgb A1C 6.2(H) 4.0 - 5.6 % Estimated Average Glucose 131 mg/dL [facility] Comment: The ADA recommends reporting an estimated Average Glucose (eAG) with all Hemoglobin A1c results using the equation derived from a study of 507 normal and diabetic adults. Minority populations were underrepresented and children were not included. (Diabetes Care 31:2948-5843, 2008). The eAG is not equivalent to a fasting glucose. Blood 05/07/2025 1:47 PM CDT 05/07/2025 6:19 PM CDT us Juliana Hannah [employer] LAB BLOOD ORDERABLES Final Resul t Performing Organization Address [facility] Co de Phone Number [address] [address] * (ABNORMAL) Ferritin (05/07/2025 1:47 PM CDT) Ferritin 1,437(H) 30 - 400 ng/mL Blood 05/07/2025 1:47 PM CDT 05/07/2025 6:19 PM CDT us Juliana Hannah [employer] LAB BLOOD ORDERABLES Final Resul t Performing Organization Address [facility] de Phone Number [address] [address] * Vitamin B12 (05/07/2025 1:47 PM CDT) Vitamin B12 703 230 - 1,250 pg/mL Blood 05/07/2025 1:47 PM CDT 05/07/2025 6:19 PM CDT us Juliana Hannah [employer] LAB BLOOD ORDERABLES Final Resul t Performing Organization Address [facility] de Phone Number [address] [address] * Lipid panel (05/07/2025 1:47 PM CDT) [...] 2018. LDL, calculated 67 <=129 mg/dL [facility] Comment: Interpretive Data Ages < [...] 3. José Watkins et al. RONALDO Cardiol. 2020 November 14;5(5):540-548. doi: 10.1001/jamacardio.2020.0013 Current Interpretive Data was [...] last revised on 2018. Chol/HDL ratio 3 [facility] Blood 05/07/2025 1:47 PM CDT 05/07/2025 6:19 PM CDT Juliana Hannah [employer] LAB BLOOD ORDERABLES Final Resul t [facility] [address] [facility] [place] [address] * (ABNORMAL) eGFR (05/07/2025 1:34 PM CDT) [...] CDT 05/07/2025 6:19 PM CDT us Cosme Skip Spivey [employer] LAB BLOOD ORDERABLES Final R esult [facility] [address] [facility] [place] [address] * (ABNORMAL) Pro B-type natriuretic peptide (05/07/2025 [...] 1:34 PM CDT 05/07/2025 6:19 PM CDT Cosme Spivey NP LAB BLOOD ORDERABLES Final R esult Performing Organization Address [facility] Co de Phone Number [facility] [address] Department [place] [address] * (ABNORMAL) Basic metabolic panel (05/07/2025 1:34 PM CDT) [facility] Sodium 138 135 - 145 mmol/L Potassium, pl 3.3 3.3 - 4.9 mmol/L [facility] Chloride 97 97 - 110 mmol/L [facility] CO2 22 22 - 32 mmol/L [facility] Anion gap 19(H) 2 - 15 mmol/L [facility] BUN 32(H) 6 - 25 mg/dL [facility] Creatinine 1.37(H) 0.80 - 1.30 mg/dL [facility] Glucose 154 70 - 199 mg/dL [facility] Comment: Interpretive Data Fasting glucose >/= [...] 2022. Calcium 9.9 8.5 - 10.3 mg/dL [facility] Blood 05/07/2025 1:34 PM CDT 05/07/2025 6:19 PM CDT Cosme Spivey NP LAB BLOOD ORDERABLES Final R esult Performing Organization Address [facility] Co de Phone Number [address] Department [place] [address] * CT Chest PE (CTA) W Contrast [...] Everardo Smiley M.D. KH: ZAKI Report ID: [id number] Reading Location: [id number] Procedure Note Everardo Smiley MD - 05/03/2025 [...] Everardo Smiley M.D. KH: ZAKI Report ID: [id number] Reading Location: [place] [address] Nicholas Eason MD IMG CT PROCEDURES Final Resu lt * (ABNORMAL) Troponin T high-sensitivity 2-hour (05/03/2025 3:41 PM CDT) Trop T hs 35(H) <=22 ng/L Comment: Interpretive Data For further hscTnT resources including the diagnostic algorithm and an aid in interpretation, copy and paste this link: https://nrl.testcatalog.org/show/hsTrop Current Interpretive Data last revised 2020. Trop T hs delta -3 ng/L [facility] ([facility]) Trop T hs interp Insignificant [facility] ([facility]) Blood 05/03/2025 3:41 PM CDT 05/03/2025 3:45 PM CDT us Eugene Hu MD LAB BLOOD ORDERABLES Final R esult Performing Organization Address City/[facility]/ZIP Co de Phone Number [facility] GUEVARA (WAYNE) [address] [facility] [employer] [place] [address] * (ABNORMAL) Levetiracetam level (05/03/2025 3:41 PM CDT) Levetiracetam (Keppra) <1.0(L) 10.0 - 40.0 mcg/mL [facility] ref Lab Comment: ADDITIONAL INFORMATION This test was developed and its performance characteristics determined by [facility] in a manner consistent with CLIA requirements. This test has not been cleared or approved by the U.S. Food and Drug Administration. Test Performed by: [facility] - [address] [address] Drum Straightener: Keyon Kitchen Ph.D.; CLIA# [id number] Blood 05/03/2025 3:41 PM CDT 05/03/2025 3:45 PM CDT us Nicholas Eason MD LAB BLOOD ORDERABLES Final R esult Performing Organization Address City/[facility]/ZIP Co de Phone Number TAVIA GUEVARA (WAYNE) [address] [facility] [employer] [place] [address] [place] ref Lab * XR Chest Pa Lateral [...] Electronically signed by Colin Hernandez M.D. LB: MERLIN Report ID: [id number] Reading Location: [place] [address] Procedure Note Colin Hernandez MD - 05/03/2025 [...] Colin Hernandez M.D. LB: LB Report ID: [id number] Reading Location: [place] [address] Nicholas Eason MD IMG XR PROCEDURES Final Resu lt * (ABNORMAL) D-dimer, quantitative (05/03/2025 2:11 PM CDT) D-Dimer 697(H) <=499 ng/mL FEU [facility] (ANTONIO) Comment: Interpretive data FDA approved the [...] MD LAB BLOOD ORDERABLES Final R esult ROSEBRUNA GUEVARA (WAYNE) [address] [facility] [place] [address] * (ABNORMAL) Troponin T high-sensitivity series (baseline, 2hr, 4hr, 6hr) (05/03/2025 2:10 PM CDT) Trop T hs 38(H) <=22 ng/L Comment: Interpretive Data For further hscTnT resources including the diagnostic algorithm and an aid in interpretation, copy and paste this link: [email or web address].testcatalog.org/[email or web address] Current Interpretive Data last revised 2020. Blood 05/03/2025 2:10 PM CDT 05/03/2025 2:13 PM CDT Nicholas Eason MD LAB BLOOD ORDERABLES Final R esult T[facility]IA [facility] ([place]) 1 [facility] [place] [address] * eGFR (05/03/2025 2:10 PM CDT) eGFR 73 >=60 mL/min/1. 73 m2 Comment: [...] Final R esult [facility] ([place]) 1 [facility] [place] [address] * (ABNORMAL) Differential, auto (05/03/2025 2:10 PM CDT) Neutrophil abs 5.49 1.50 - 6.50 K/cumm Imm gran abs 0.01 0.00 - 0.10 K/cumm [facility] ([place]) Lymphocyte abs 0.57(L) 0.80 - 3.30 K/cumm [facility] ([place]) Monocyte abs 0.88(H) 0.20 - 0.80 K/cumm [facility] ([place]) Eosinophil abs 0.04 0.00 - 0.50 K/cumm [facility] ([place]) Basophil abs 0.02 0.00 - 0.10 K/cumm [...] MD LAB BLOOD ORDERABLES Final R esult [facility] [place]) 1 [facility] [place] [address] * (ABNORMAL) Pro B-type natriuretic peptide (05/03/2025 [...] et.al. Eur Heart J. 2006:27:330-337. 2. Lei OCAMPO, Rex WILLINGHAM. J. AM Dash Cardiol: Cardiovasc Imag. 2009;2: 216- 225. Interpretive Data Last Revised Date: 2018. Blood 05/03/2025 2:10 PM CDT 05/03/2025 2:52 PM CDT Nicholas Eason MD LAB BLOOD ORDERABLES Final R esult TAVIA GUEVARA ([place]) [address] [facility] [place] [address] * (ABNORMAL) CBC with auto differential (05/03/2025 2:10 PM CDT) WBC 7.01 3.80 - 9.90 K/cumm Hgb 9.5(L) 13.0 - 17.5 g/dL [facility] ([place]) Hct 29.1(L) 38.9 - 50.3 % [facility] ([place]) Plt 144(L) 150 - 400 K/cumm [facility] ([place]) MPV 9.8 9.1 - 12.3 fL [facility] ([place]) RBC 2.66(L) 4.30 - 5.80 M/cumm [facility] ([place]) MCV 109.4(H) 81.3 - 96.4 fL [facility] ([place]) MCH 35.7(H) 27.1 - 33.3 pg [facility] ([place]) MCHC 32.6 32.3 - 35.7 g/dL [facility] ([place]) RDW CV 14.8 11.1 - 14.9 % [facility] ([place]) RDW SD 59.7(H) 35.7 - 48.1 fL [facility] ([place]) NRBC abs 0.00 0.00 - 0.01 K/cumm [facility] ([place]) Blood 05/03/2025 2:10 PM CDT 05/03/2025 2:13 PM CDT Nicholas Eason MD LAB BLOOD ORDERABLES Final R esult TAVIA GUEVARA ([place]) 1 [facility] [place] [address] * (ABNORMAL) Comprehensive metabolic panel (05/03/2025 2:10 PM CDT) Sodium 127(L) 135 - 145 mmol/L Potassium, pl 3.4 3.3 - 4.9 mmol/L [facility] ([place]) Chloride 92(L) 97 - 110 mmol/L [facility] ([place]) CO2 22 22 - 32 mmol/L [facility] ([place]) Anion gap 13 2 - 15 mmol/L [facility] ([place]) BUN 22 6 - 25 mg/dL [facility] ([place]) Creatinine 1.09 0.80 - 1.30 mg/dL [facility] ([place]) Glucose 215(H) 70 - 199 mg/dL [facility] ([place]) Comment: Interpretive Data Fasting glucose [...] MD LAB BLOOD ORDERABLES Final R esult [facility] ([place]) 1 [facility] [place] [address] * ECG 12 lead (05/03/2025 2:07 PM CDT) 05/03/2025 2:07 PM CDT Narrative [facility] - 05/05/2025 6:54 AM CDT Vent Rate: 95 bpm RR Interval: 631 msec MA Interval: 240 msec QRS Duration: 79 msec QT Interval: 324 msec QTC Interval: 376 msec P-R-T Eckley: 37 - -17 - 32 degrees IMPRESSION: Baseline artifact, probable SINUS RHYTHM WITH FIRST DEGREE AV BLOCK WITH FREQUENT SUPRAVENTRICULAR PREMATURE COMPLEXES INFERIOR MYOCARDIAL INFARCTION , OF INDETERMINATE AGE [40+ ms Q WAVE AND/OR ST/T ABNORMALITY IN II/aVF] ABNORMAL ECG Electronically Signed By: Terrell Copeland MD Nicholas Eason MD ECG ORDERABLES Final Result [facility] * Stool DNA - Cologuard (09/23/2024 9:30 AM CDT) Pathologist [facility] Stool DNA - Cologuard Negative Negative Screen Fix Gibson (CLIA #:[id number]) Comment: NEGATIVE TEST RESULT. A negative Cologuard [...] Caballero et al, N Engl J Med 2014;370(14):2194-8086) The normal value (reference range) for this assay is negative. COLOGUARD RE-SCREENING RECOMMENDATION: Periodic colorectal cancer screening is an important part of preventive healthcare for asymptomatic individuals at average risk for colorectal cancer. Following a negative Cologuard result, the [place] [employer] Society and U.S. Multi-Society Task Force screening guidelines recommend a Cologuard re-screening interval of 3 years. References: [place] [employer] Guideline for Colorectal Cancer Screening: https://www.cancer.org/cancer/hzysl-hawgzi-tizhzt/ppdacvjsl-bdbztbnse-eogjuxj/ac s-rec ommendations.html.; Khalif MAK, Kenrick FAIR, Hero YANG, Colorectal Cancer Screening: Recommendations for Physicians and Patients from the U.S. Multi-Society Task Force on Colorectal Cancer Screening , Am J Gastroenterology 2017; 112:3126-5788. TEST DESCRIPTION: Composite algorithmic analysis of stool [...] (Siobhan Marshall al, N Engl J Med 2014;370(14):0697-2672.) Cologuard may produce a false negative or false positive result (no colorectal cancer or precancerous polyp present at colonoscopy follow up). A negative Cologuard test result does not guarantee the absence of CRC or advanced adenoma (pre-cancer). The current Cologuard screening interval is every 3 years. ([place] [employer] Society and U.S. Multi-Society Task Force). Cologuard performance data in a 10,000 patient pivotal study using colonoscopy as the reference method can be accessed at the following location: www.exactlabs.com/results. Additional description of the Cologuard test process, warnings and precautions can be found at www.cologuard.com. Stool 09/23/2024 9:30 AM CDT 09/25/2024 9:54 AM CDT us Juliana Hannah NP LAB BODY FLUIDS AND STOOLS ORDER [place] Final Result Performing Organization Address [facility] de Phone Number Med [employer]Pad (CLIA #:[id number]) [address] [address] * PSA screen (08/07/2024 1:40 PM EDGING MACHINE OPERATOR) PSA-Total 2.80 <=6.20 ng/mL Comment: Interpretive Data [...] last revised 21. Blood 08/07/2024 1:40 PM EDGING MACHINE OPERATOR 08/07/2024 8:13 PM EDGING MACHINE OPERATOR us Juliana Hannah NP LAB BLOOD ORDERABLES Final Resul t Performing Organization Address City/[facility] de Phone Number [place] [address] [address] Department [place] [address] * CT Lung Cancer Screening (01/10/2024 11:38 [...] FINDINGS: SMOKING RELATED LUNG DISEASE: There are tfbo-cq-hpddkyts emphysematous changes of lungs with scattered subsegmental [...] evidence of a new suspicious pulmonary nodule. Cxiz-mi-ywcrjwwt emphysematous changes of lungs with scattered subsegmental [...] Esther Graves D.O. PS: PS Report ID: [id number] Reading Location: [id number] Procedure Note Esther Graves, DO - 01/11/2024 EXAM DESCRIPTION: CT LUNG [...] FINDINGS: SMOKING RELATED LUNG DISEASE: There are qiix-xw-dmdfahfc emphysematous changes of lungs with scattered subsegmental [...] 0.8 cm in the subcarinal region (axial ). There is a small hiatal hernia. The [...] definiteevidence of a new suspicious pulmonary nodule. Okdq-uq-ewbcddfh emphysematous changes of lungs with scatteredsubsegmental atelectasis [...] Esther Graves D.O. PS: PS Report ID: [id number] Reading Location: [place] [address] Gab Diaz MD IM CT PROCEDURES Final Result * US Abdominal [...] Homero Hart M.D. AG: BENJA Report ID: [id number] Reading Location: [id number] Procedure Note Homero Hart MD - 01/05/2024 [...] Homero Hart M.D. AG: AG Report ID: [id number] Reading Location: [id number] us Juliana Hannah [facility] FLOOR LAYER IMG US PROCEDURES Final Result * Hepatitis C antibody (10/24/2022 1:13 PM CDT) Pathologist [facility] Hep C Ab Nonreactive Nonreactive TAVIA HERNANDEZ [...] 1:13 PM CDT 10/24/2022 7:18 PM CDT Juliana Hannah NP LAB MICROBIOLOGY - GENERAL ORDER [place] Final Result Performing Organization Address City/[place] [address] [address] Department [place] [address] * Diabetic Eye Exam (03/15/2021) Historical Provider HEALTH MAINTENANCE Final Result from Last 3 Months or Most Recently Relevant to Health Maintenance Insurance MEDICARE [facility] [address] MEDICARE [facility] MEDICARE SUPPLEMENT Advance Directives For more information, please contact: [phone] * Full Code (Latest Code Status on File) Date Activated Date Inactivated Comments 07/20/2023 12:17 PM 07/22/2023 6:02 PM Healthcare Agents on File Name Relationship Healthcare Agent [facility] Communication Jennifer Damian Daughter Health Care Agent Care Teams Inserter Relationship Specialty Start Date End Date Juliana Hannah NP [address] [place] [address] PCP - General Family Medicine 09/19/22 Bob Pollard MD [address] [place] [address] Consulting Physician Cardiovascular Disease 07/22/23
[2025-05-31 10:03] VITALS: BP 113/51; PULSE 79; RESP 17; TEMP 36.5; O2SAT 100
[2025-05-31 10:09] VITALS: O2SAT 100
--- NOTE | 2025-05-31 10:14 | ED.URI ---
HPI - URI/Sore Throat General Chief Complaint: Upper Respiratory Infection Stated Complaint: sinus infection, SOB Time Seen by Provider: 05/31/25 10:09 Source: patient History of Present Illness HPI Narrative: 70 years old white male came to the ED by private car from home with his daughter complaining of difficulty sleep over the last 2 days because of shortness of breath. Patient reports the symptoms started 3 weeks ago and gradually getting worse. Patient also complaining of nasal and postnasal discharge, productive cough of yellow sputum, recent diagnosis of pneumonia improved on antibiotic. A lot of stress lately. He denies any fever or chills or chest pain or back pain or abdominal pain or increased swelling of the lower extremities. Sitting up at the middle of the night does not improve he shortness of breath. Related Data Home Medications ?Medication ?Instructions ?Recorded ?Confirmed ?Last Taken ?Type atorvastatin 80 mg tablet 80 mg PO HS 05/11/25 05/11/25 05/11/25 History clopidogrel 75 mg tablet 75 mg PO DAILY 05/11/25 05/11/25 05/11/25 History furosemide 40 mg tablet 80 mg PO BID 05/11/25 05/11/25 05/11/25 History gemfibrozil 600 mg tablet 600 mg PO HS 05/11/25 05/11/25 05/10/25 History losartan 100 mg tablet 100 mg PO DAILY 05/11/25 05/11/25 05/11/25 History metoprolol tartrate 25 mg tablet 25 mg PO BID 05/11/25 05/11/25 05/11/25 History sodium chloride 1,000 mg soluble 3,000 mg PO HS 05/11/25 05/11/25 05/10/25 History tablet tamsulosin 0.4 mg capsule 0.4 mg PO HS 05/11/25 05/11/25 05/10/25 History Allergies Allergy/AdvReac Type Severity Reaction Status Date / Time No Known Allergies Allergy Verified 05/31/25 10:08 Review of Systems Review of Systems: All systems reviewed & are unremarkable except as noted in HPI and below PMFSH Past Medical History Medical History COPD (chronic obstructive pulmonary disease) (HFpEF) heart failure with preserved ejection fraction Diabetes Hyperlipidemia Hypertension Social History Social History Social History: Former smoker Smoking packs per day: 1 Smoking cigarettes per day: 20.0 Years smoked: 20 Smoking pack-years: 20.00 Smoking status: Former smoker Alcohol intake: never Substance use: never Substance use type: does not use Lack of Transportation: No Lack of Food: Never True Current Housing: I Have Housing Concerned About Future Housing: No Difficulty Paying Gas/Electric Bills: No Difficulty Paying for Meds: No Currently Unemployed: No Education: Master's Degree or Higher Difficulty w/ Childcare or Family Care: No Spiritual care concerns: No Exam Narrative: General appearance: Well-developed, well-nourished Skin: Normal color Head: Normocephalic, nontraumatic Eyes: Clear conjunctiva ENT: Oropharynx normal, ears normal, nose normal Neck: Supple, nontender Chest and respiratory: Airway patent, no respiratory distress, no accessory muscle use mild basilar rales bilaterally mainly on the right side Heart: Regular rate/rhythm Abdomen: Soft, nontender, no organomegaly, quiet bowel sounds Vascular: Normal peripheral pulses, normal capillary refill. Musculoskeletal: Normal range of motion, nontender back Neurologic: Alert and oriented ?3, TREAD BOOKER is normal as tested, no gross motor deficit Course Vital Signs Vital signs: Vital Signs Temperature 36.5 C 05/31/25 10:03 Pulse Rate 79 05/31/25 10:03 Respiratory Rate 17 05/31/25 10:03 Blood Pressure 113/51 L 05/31/25 10:03 Pulse Oximetry 100 05/31/25 10:03 Oxygen Delivery Room Air 05/31/25 10:03 Temperature 36.5 C 05/31/25 10:03 Pulse Rate 98 05/31/25 12:27 Respiratory Rate 18 05/31/25 12:27 Blood Pressure 101/54 L 05/31/25 12:27 Pulse Oximetry 100 05/31/25 12:27 Oxygen Delivery Nasal Cannula 05/31/25 10:09 Oxygen Flow Rate 4 05/31/25 10:09 MDM - URI/Sore Throat MDM Narrative Medical decision making narrative: Patient came with shortness of breath at night and inability to sleep p. Patient on chronic oxygen by nasal cannula 4 L Vital signs showing a blood pressure 113/51 otherwise within normal limit Physical examination showing mild basilar rales bilaterally mainly on the right side otherwise within normal limit Differential diagnosis include sinusitis, pneumonia, congestive heart failure, coronary artery disease, electrolyte imbalance, dehydration, anxiety like symptoms Blood workup today includes CBC, CMP, troponin, proBNP, coags showed hemoglobin 8.4, better the last reading, creatinine 1.3 consistent with previous reading, proBNP 732 compared to 776 few days ago. Chest x-ray Improving but persistent scattered foci bilateral airspace disease. EKG showed normal sinus rhythm with first-degree heart block at 75 beats per minute, if you myocardial infarction probably old, low QRS voltage in precordial leads Patient is telling me that his family physician given prescription of Levaquin 750 once a day for 5 days started the 1st pill this morning prior to arrival. Diagnosis: Sinusitis, bronchitis, stress related symptoms Treatment continue Levaquin 750 once a day for 7 days, nasal saline spray, humidifier, Tylenol as needed, Flonase The pt was discharged to home.the pt,s condition upon discharge was fair,education was provided to the pt in reference to the final impression,discharge study results,treatment,prognosis and need for follow up . Differential Diagnosis Differential diagnosis: Likely other (As above) Lab Data Attestation: I reviewed the patient's lab results. 05/31/25 10:46 05/31/25 10:46 Labs: Lab Results 05/31/25 Range/Units 10:46 WBC 8.5 (4.5-10.0) K/mm3 RBC 2.42 L (4.6-6.20) M/mm3 Hgb 8.4 L (14.0-18.0) g/dL Hct 26.9 L (42.0-52.0) % MCV 111.2 H (80-100) fl MCH 34.7 H (26-34) pg MCHC 31.2 L (32-36) g/dl RDW 14.9 H (11.5-14.5) % Plt Count 230 (150-375) k/mm3 MPV 9.5 (7.4-10.4) fl Immature Gran % (Auto) 0.5 (0-0.5) % Neut % (Auto) 78.0 H (45.5-73.1) % Lymph % (Auto) 11.6 L (18.3-44.2) % [place] % (Auto) 8.6 H (2.6-8.5) % Eos % (Auto) 1.1 (0-4.4) % Baso % (Auto) 0.2 (0.2-1.2) % Lymph # (Auto) 0.98 (0.9-3.2) K/mm3 [place] # (Auto) 0.7 H (0.1-0.6) K/mm3 Eos # (Auto) 0.1 (0-0.3) K/mm3 Baso # (Auto) 0.0 (0.0-0.1) K/mm3 Abs Immat Gran (auto) 0.04 H (0.00-0.031) K/mm3 Absolute Neuts (auto) 6.6 (1.3-6.7) K/mm3 Absolute Nucleated RBC 0.000 (0.0-0.012) K/mm3 Band Neutrophils % Not Reportable Nucleated RBC % 0.0 (0.0-0.2) % Platelet Estimate Adequate (Adequate) Large Platelets Present Macrocytosis 2+ (NORMAL) Schistocytes None seen PT 15.5 H (11.1-14.7) Seconds INR 1.2 APTT 33.6 (22.3-36.8) Seconds Sodium 135 L (137-145) mmol/L Potassium 4.4 (3.4-5.0) mmol/L Chloride 98 (98-107) mmol/L Carbon Dioxide 29 (22-30) mmol/L Anion Gap 8 (4-12) mmol/L BUN 31 H (9-20) mg/dL Creatinine 1.39 H (0.7-1.3) mg/dL Estim Creat Clear Calc 48 ml/min Estimated GFR 50 L (59 - ) Glucose 123 H (65-110) mg/dL Calcium 9.2 (8.4-10.2) mg/dL Total Bilirubin 0.8 (0.2-1.3) mg/dL AST 33 (17-59) U/L ALT 17 (6-50) U/L Alkaline Phosphatase 149 H (38-126) U/L Troponin I < 0.012 (0.000-0.034) ng/mL NT-Pro-B Natriuret Pep 732 H (19.9-100) pg/mL Total Protein 7.9 (6.3-8.2) g/dL Albumin 4.2 (3.5-5.1) g/dL ABG Data ABG results: 05/31/25 10:43 Puncture Site Right brachial ABG pH 7.417 ABG pCO2 38.1 ABG pO2 92.7 ABG PO2/FiO2 Ratio 2.57 ABG HCO3 24.0 ABG O2 Saturation 97.2 ABG O2 Content 12.3 L ABG Base Excess -0.4 A-a Gradient 119.8 Oxyhemoglobin 95.6 Total Hemoglobin 9.0 L O2 Delivery Device Nasal cannula O2 Liters/Min 4.0 FiO2 36 Imaging Data Radiologist's impression: Chest x-ray showed Improving but persistent scattered foci bilateral airspace disease ECG Data EKG #1: Attestation: I personally reviewed and interpreted this ECG as follows: ECG completion date: 05/31/25 Interpretation: Normal sinus rhythm at 75 beats per minute with first-degree heart block, low QRS voltage in precordial leads, inferior myocardial infarction, probably old Critical Care Time Critical Care Time Critical Care Time: No Discharge Plan Discharge Clinical Impression: Sinusitis Patient Disposition: Home Condition: Stable Instructions: Antibiotic Form, Sinusitis (ED) Additional Instructions: Return if symptoms are worsening , call your family physician for appointment, take Tylenol as as needed for aches and pain, continue home medications. Get rwcj-jjk-oaspezx nasal saline spray Humidifier Tylenol as needed Sleep in semi-sitting position Patient Language: Uzbek Prescriptions: New levofloxacin 750 mg tablet 750 mg PO DAILY Qty: 2 0RF fluticasone propionate [Flonase Allergy Relief] 50 mcg/actuation spray,suspension 2 spray intranasal DAILY Qty: 36.4 0RF Rx Instructions: administer into each nostril No Action atorvastatin 80 mg tablet 80 mg PO HS clopidogrel 75 mg tablet 75 mg PO DAILY furosemide 40 mg tablet 80 mg PO BID losartan 100 mg tablet 100 mg PO DAILY metoprolol tartrate 25 mg tablet 25 mg PO BID tamsulosin 0.4 mg capsule 0.4 mg PO HS gemfibrozil 600 mg tablet 600 mg PO HS sodium chloride 1,000 mg tablet,soluble 3,000 mg PO HS pantoprazole [Protonix] 20 mg Tablet,Delayed Release (Dr/Ec) 20 mg PO QAM Qty: 30 0RF bisacodyl [Laxative (bisacodyl)] 5 mg Tablet,Delayed Release (Dr/Ec) 5 mg PO DAILY PRN (Reason: Constipation) Qty: 30 0RF ciprofloxacin HCl 250 mg tablet 250 mg PO Q12H Qty: 14 0RF Follow-up/Referrals: [place],Mamie Raman APRN [Primary Care Provider, Unknown]
--- NOTE | 2025-05-31 10:15 | ECG_ITS ---
Test Date: 2025-05-31 10:43:24 Measurements Intervals Isom Rate: 75 P: 29 AK: 275 QRS: -20 QRSD: 82 T: 8 QT: 353 QTc: 395 Interpretive Statements SINUS RHYTHM WITH FIRST DEGREE AV BLOCK LOW QRS VOLTAGE IN PRECORDIAL LEADS INFERIOR MYOCARDIAL INFARCTION , PROBABLY OLD Electronically Signed On 05-31-2025 10:56:19 SHOWER DOORS AND PANELS FABRICATOR by Raf Daniels D.O
[2025-05-31 10:45] LABS: Alveolar/Arterial O2 Gradient 119.8 mmHg; Fractional Inspired Oxygen 36 %; HCO3 ABG 24.0 mEq/l (22.0-26.0); Oxygen Content ABG 12.3 %vol (16.0-22.0); Oxygen Saturation ABG 97.2 % (95.0-100.0); PCO2 ABG 38.1 mmHg (35.0-45.0); PO2 ABG 92.7 mmHg (80.0-100.0); PO2 FiO2 Ratio Arterial Blood 2.57 %
[2025-05-31 10:46] LABS: Liters per Minute 4.0 LPM; Site Drawn RIGHT BRACHIAL
[2025-05-31 10:52] LABS: Hematocrit 26.9 % (42.0-52.0); Hemoglobin 8.4 g/dL (14.0-18.0); Immature Granulocyte Percent A 0.5 % (0-0.5); Lymphocytes Absolute Auto 0.98 K/mm3 (0.9-3.2); Mean Corpuscular HGB Conc 31.2 g/dl (32-36); Mean Corpuscular Hemoglobin 34.7 pg (26-34); Mean Corpuscular Volume 111.2 fl (80-100); Nucleated Red Blood Cells Absolute Auto 0.000 K/mm3 (0.0-0.012); Nucleated Red Blood Cells Perc 0.0 % (0.0-0.2); Platelet Count Result 230 k/mm3 (150-375); Red Blood Count 2.42 M/mm3 (4.6-6.20); White Blood Count 8.5 K/mm3 (4.5-10.0)
[2025-05-31 11:03] LABS: INR 1.2; Prothrombin Time 15.5 Seconds (11.1-14.7)
[2025-05-31 11:05] LABS: Alanine Aminotransferase 17 U/L (6-50); Albumin Level 4.2 g/dL (3.5-5.1); Alkaline Phosphatase 149 U/L (38-126); Anion Gap 8 mmol/L (4-12); Aspartate Amino Transferase 33 U/L (17-59); Bilirubin,Total 0.8 mg/dL (0.2-1.3); Blood Urea Nitrogen 31 mg/dL (9-20); Calcium 9.2 mg/dL (8.4-10.2); Carbon Dioxide 29 mmol/L (22-30); Chloride 98 mmol/L (98-107); Estimated CRCL calculation 48 ml/min; Estimated Glomerular Filt Rate 50; Glucose 123 mg/dL (65-110); Partial Thromboplastin Time 33.6 Seconds (22.3-36.8); Potassium 4.4 mmol/L (3.4-5.0); Sodium 135 mmol/L (137-145); Total Protein 7.9 g/dL (6.3-8.2)
[2025-05-31 11:11] LABS: Macrocytosis 2+ (NORMAL)
[2025-05-31 11:12] LABS: Schistocytes None Seen
[2025-05-31 11:15] LABS: NT Pro B Type Natriuretic Pept 732 pg/mL (19.9-100); Troponin I < 0.012 ng/mL (0.000-0.034)
[2025-05-31 12:27] VITALS: BP 101/54; PULSE 98; RESP 18; O2SAT 100
[2025-05-31 13:16] VITALS: BP 101/54; PULSE 98; RESP 15; TEMP 36.4; O2SAT 98
== END 2025-05-31 13:24 | disposition home or self-care (01) ==
PROVIDERS: Emergency Provider Emergency Medicine; PCP Nurse Practitioner Family
DX: J32.9 Chronic sinusitis, unspecified (principal); E11.9 Type 2 diabetes mellitus without complications; Z79.84 Long term (current) use of oral hypoglycemic drugs; E78.5 Hyperlipidemia, unspecified; I10 Essential (primary) hypertension; J44.9 Chronic obstructive pulmonary disease, unspecified; Z87.891 Personal history of nicotine dependence
CPT/HCPCS: 36415; 36600; 71045; 80053; 82805; 83880; 84484; 85018; 85025; 85610; 85730; 93005; 99284